=== PATIENT | female | born 1945 | race Two or more races ===

== ENCOUNTER 2018-08-11 00:42 | Emergency (ER) | payer OTHER ==
[~2018-08-11] VITALS: Ht 152.4 cm; Wt 76.0 kg
[~2018-08-11 00:42] MED LIST: BUPR1PAT TOP; CARV3.12 PO; DOCU100C41 PO; DULO60CA64 PO; HYDR-4353 PO; LIDO700A32 TOP; OXYC-134 PO; PRED50TA PO; TIZA4CAP PO
[2018-08-11 00:57] VITALS: BP 192/106
[2018-08-11] MEDS ORDERED: morphine 4 MG/ML inj SYRINge IM ONE (01:10)
[2018-08-11] MEDS ORDERED: morphine 4 MG/ML inj SYRINge IV ONE (02:05)
== END 2018-08-11 02:40 | disposition home or self-care (01) ==
LOC: ER 00:43
DX: M54.5 Low back pain (principal); I10 Essential (primary) hypertension; M19.90 Unspecified osteoarthritis, unspecified site; G89.29 Other chronic pain; M54.9 Dorsalgia, unspecified; Z90.49 Acquired absence of other specified parts of digestive tract; Z90.710 Acquired absence of both cervix and uterus; Z88.1 Allergy status to other antibiotic agents
CPT/HCPCS: 96372; 96374; 99283; J2270

== ENCOUNTER 2018-11-30 06:28 | Emergency (ER) | payer OTHER ==
[~2018-11-30] VITALS: Ht 152.4 cm; Wt 75.0 kg
[2018-11-30] MEDS ORDERED: VAL5T PO (07:00)
[2018-11-30] MEDS ORDERED: diazepam 5mg tablet PO ONE (07:00)
[2018-11-30 07:15] VITALS: BP 190/109
== END 2018-11-30 07:17 | disposition home or self-care (01) ==
LOC: ER 06:29
DX: R25.2 Cramp and spasm (principal); I10 Essential (primary) hypertension; M19.90 Unspecified osteoarthritis, unspecified site; G89.29 Other chronic pain; Z90.49 Acquired absence of other specified parts of digestive tract; Z90.710 Acquired absence of both cervix and uterus; Z98.890 Other specified postprocedural states; Z88.1 Allergy status to other antibiotic agents; Z79.899 Other long term (current) drug therapy
CPT/HCPCS: 99283

== ENCOUNTER 2019-01-24 00:40 | Emergency (ER) | payer OTHER ==
[~2019-01-24] VITALS: Ht 152.4 cm; Wt 74.2 kg
[~2019-01-24 00:40] MED LIST changes: -DULO60CA64 PO; +DULO60CA65 PO
[2019-01-24 00:44] VITALS: BP 147/95
[2019-01-24] MEDS ORDERED: triamcinolone acetonide 40mg/ml inj IM ONE (03:25)
[2019-01-24] MEDS ORDERED: LIDOcaine 5% patch TP SCH (03:25)
[2019-01-24] MEDS ORDERED: ketorolac trometh. 30mg/ml inj. IM ONE (03:25)
[2019-01-24] MEDS ORDERED: oxyCODONE/APAP 10/325mg tablet PO ONE (03:25)
[2019-01-24] MEDS ORDERED: MELO15TA13 PO (03:26)
== END 2019-01-24 03:44 | disposition home or self-care (01) ==
LOC: ER 00:41
DX: M54.5 Low back pain (principal); G89.29 Other chronic pain; I10 Essential (primary) hypertension; M19.90 Unspecified osteoarthritis, unspecified site; Z90.49 Acquired absence of other specified parts of digestive tract; Z90.710 Acquired absence of both cervix and uterus; Z98.890 Other specified postprocedural states; Z88.1 Allergy status to other antibiotic agents; Z79.899 Other long term (current) drug therapy
CPT/HCPCS: 96372; 99283; J1885; J3301

== ENCOUNTER 2019-02-26 02:39 | Emergency (ER) | payer SELFPAY ==
[~2019-02-26] VITALS: Ht 152.4 cm; Wt 77.8 kg
[~2019-02-26 02:39] MED LIST changes: +MELO15TA13 PO
[2019-02-26 02:57] VITALS: BP 165/89
[2019-02-26] MEDS ORDERED: acetaminophen 325mg tablet PO ONE (03:30)
[2019-02-26] MEDS ORDERED: morphine 4 MG/ML inj SYRINge IM ONE (03:30)
[2019-02-26] MEDS ORDERED: orphenadrine citrate 60mg/2ml inj. IM ONE (03:30)
[2019-02-26] MEDS ORDERED: ketorolac trometh. 30mg/ml inj. IM ONE (04:12)
[2019-02-26] MEDS ORDERED: ketorolac tromethamine 15mg/ml inj. IM ONE (08:00)
== END 2019-02-26 04:28 | disposition home or self-care (01) ==
LOC: ER 02:39
DX: G89.29 Other chronic pain (principal); M54.5 Low back pain; M79.605 Pain in left leg; M79.604 Pain in right leg; I10 Essential (primary) hypertension; M19.90 Unspecified osteoarthritis, unspecified site; Z90.49 Acquired absence of other specified parts of digestive tract; Z90.710 Acquired absence of both cervix and uterus; Z98.890 Other specified postprocedural states; Z88.8 Allergy status to other drugs, medicaments and biological substances; Z79.899 Other long term (current) drug therapy
CPT/HCPCS: 96372; 99283; J1885; J2270; J2360

== ENCOUNTER 2019-03-19 18:31 | Emergency (ER) | payer SELFPAY ==
[~2019-03-19] VITALS: Ht 152.4 cm; Wt 77.0 kg
[2019-03-19 18:59] LABS: BASOPHILS # (AUTO) 0.1 X10'3 (0-0.2); BASOPHILS % (AUTO) 0.7 % (0-1); EOSINOPHILS % (AUTO) 0.5 % (0-6); HEMATOCRIT 41.6 % (35.0-45.0); HEMOGLOBIN 14.3 g/dl (12.0-16.0); LYMPHOCYTES # (AUTO) 1.1 X10'3 (1.1-4.8); LYMPHOCYTES % (AUTO) 16.6 % (21-51); MEAN CORPUSCULAR HEMOGLOBIN 30.6 PG (27.0-31.0); MEAN CORPUSCULAR HGB CONC 34.2 g/dL (33.0-36.5); MEAN CORPUSCULAR VOLUME 89.3 FL (78-98); MONOCYTES # (AUTO) 0.3 X10'3 (0-0.9); MONOCYTES % (AUTO) 4.3 % (2-12); NEUTROPHILS # (AUTO) 5.4 X10'3 (1.8-7.7); NEUTROPHILS % (AUTO) 77.9 % (42-75); PLATELET COUNT 463 X10'3 (140-440); RED BLOOD COUNT 4.66 X10'6 (4.20-5.60); RED CELL DISTRIBUTION WIDTH 13.9 % (11.5-14.5); WHITE BLOOD COUNT 6.9 X10'3 (4.5-11.0)
[2019-03-19] MEDS ORDERED: GABA-532 PO (18:59)
[2019-03-19] MEDS ORDERED: DICL100G15 TOP (18:59)
[2019-03-19] MEDS ORDERED: QUET50TA22 PO (18:59)
[2019-03-19] MEDS ORDERED: HYDR-3927 PO (18:59)
[2019-03-19] MEDS ORDERED: CARV3.123 PO (18:59)
[2019-03-19 19:08] LABS: CLARITY,URINE CLEAR (Clear); COLOR,URINE YELLOW (Yellow); GLUCOSE, URINE NEGATIVE (Neg); KETONES,URINE TRACE mg/dl (Neg); LEUKOCYTE ESTERASE ,URINE NEGATIVE (Neg); NITRITES, URINE NEGATIVE (Neg); OCCULT BLOOD,URINE NEGATIVE (Neg); PH,URINE >=9.0 (4.8-8.0); PROTEIN,URINE 100 mg/dl (Neg); UROBILINOGEN,URINE 0.2 E.U/dL (0.2-1.0)
[2019-03-19 19:09] LABS: UA COLLECTION TYPE STRAIGHT CATH
[2019-03-19 19:10] LABS: ALANINE AMINOTRANSFERASE 20 U/L (12-78); ALBUMIN 3.4 G/DL (3.4-5.0); ALBUMIN/GLOBULIN RATIO 0.7 (1.1-1.5); ALKALINE PHOSPHATASE 137 IU/L (46-116); ANION GAP 10 (8-16); ASPARTATE AMINO TRANSFERASE 17 U/L (10-37); BILIRUBIN,TOTAL 0.4 MG/DL (0.1-1.0); BLOOD UREA NITROGEN 12 MG/DL (7-18); BUN/CREATININE RATIO 11.5 (6.6-38.0); CALCIUM 9.3 MG/DL (8.5-10.1); CHLORIDE 104 MMOL/L (99-107); CREATININE 1.04 MG/DL (0.40-0.90); GLUCOSE 136 MG/DL (70-104); SODIUM 138 MMOL/L (135-145); TOTAL CARBON DIOXIDE 23.8 MMOL/L (24-32); TOTAL PROTEIN 8.2 G/DL (6.4-8.2); eGFR 52 ML/MIN
[2019-03-19 19:22] LABS: BACTERIA,URINE NONE SEEN /HPF (Neg); MUCUS STRANDS NONE SEEN /LPF (Neg); RBC,URINE NONE SEEN /HPF (0-2); RENAL CELLS, URINE FEW /HPF; SQUAMOUS EPITHELIAL CELL,UR NONE SEEN /LPF (FEW); TRANSITIONAL EPI CELLS,URINE FEW /HPF; WBC,URINE NONE SEEN /HPF (0-4)
[2019-03-19] MEDS ORDERED: ondansetron/PF 4mg/2ml inj IV ONE (20:10)
[2019-03-19] MEDS: morphine 4 MG/ML inj SYRINge IV PRN ×2 (20:24→20:58)
--- NOTE | 2019-03-19 20:30 | NUR ---
MD AWARE OF BP PRESSURE. WILL TREAT PAIN AND REASSESS ,
[2019-03-19] MEDS ORDERED: ketorolac tromethamine 15mg/ml inj. IV ONE (20:35)
[2019-03-19] MEDS ORDERED: labetalol 20mg/4ml (5mg/ml) syringe IV ONE (21:05)
--- NOTE | 2019-03-19 21:15 | NUR ---
PT FAMILY CALLED CALL TRANSFERED TO PT ROOM
[2019-03-19 22:09] VITALS: BP 191/93
== END 2019-03-19 22:00 | disposition home or self-care (01) ==
LOC: ER 18:31
DX: R10.31 Right lower quadrant pain (principal); I10 Essential (primary) hypertension; M19.90 Unspecified osteoarthritis, unspecified site; G89.29 Other chronic pain; Z90.49 Acquired absence of other specified parts of digestive tract; Z90.710 Acquired absence of both cervix and uterus; Z98.890 Other specified postprocedural states; Z88.1 Allergy status to other antibiotic agents; Z79.899 Other long term (current) drug therapy
CPT/HCPCS: 36415; 74176; 80053; 81001; 85025; 85610; 93005; 96374; 96375; 96376; 99284; J1885; J2270; J2405; P9612; J3490

== ENCOUNTER 2019-04-09 20:09 | Emergency (ER) | payer OTHER ==
[~2019-04-09] VITALS: Ht 152.4 cm; Wt 75.0 kg
[~2019-04-09 20:09] MED LIST changes: -CARV3.12 PO; +CARV3.123 PO; +DICL100G15 TOP; -DOCU100C41 PO; +GABA-532 PO; +HYDR-3927 PO; -LIDO700A32 TOP; -MELO15TA13 PO; -OXYC-134 PO; -PRED50TA PO; +QUET50TA22 PO
[2019-04-09 20:36] VITALS: BP 159/67
== END 2019-04-09 22:14 | disposition home or self-care (01) ==
LOC: ER 20:10
DX: S92.351A Displaced fracture of fifth metatarsal bone, right foot, initial encounter for closed fracture (principal); I10 Essential (primary) hypertension; M19.90 Unspecified osteoarthritis, unspecified site; G89.29 Other chronic pain; Z90.49 Acquired absence of other specified parts of digestive tract; Z88.1 Allergy status to other antibiotic agents; Z79.899 Other long term (current) drug therapy; Z90.710 Acquired absence of both cervix and uterus; Z98.890 Other specified postprocedural states; W18.39XA Other fall on same level, initial encounter; Y93.89 Activity, other specified; Y92.090 Kitchen in other non-institutional residence as the place of occurrence of the external cause; Y99.8 Other external cause status
CPT/HCPCS: 29515; 73630; 99284

== ENCOUNTER 2019-08-12 23:31 | Emergency (ER) | payer MEDICARE, OTHER ==
[~2019-08-12] VITALS: Ht 152.4 cm; Wt 71.4 kg
[~2019-08-12 23:31] MED LIST changes: -BUPR1PAT TOP
--- NOTE | 2019-08-13 00:50 | NUR ---
NOTIFIED MD PT HAS NOT BEEN PICKED UP AND IS UNCOMFORTABLE.
--- NOTE | 2019-08-13 01:10 | NUR ---
PT PACEING FLOOR STATING SHE IS HAVING BACK PAIN , THAT IT IS VERY UNCOMFORTABLE, NOTIFIED MD THAT PATIENT HAS NOT BEEN PICKED UP AND IS UNCOMFORTABLE
--- NOTE | 2019-08-13 01:22 | NUR ---
PT PACING HALLWAY TO HELP ELEVATE HER DISCOMFORT
--- NOTE | 2019-08-13 02:00 | NUR ---
pt moved from [facility] bed c to counts include 234 beds at the [facility] 13
--- NOTE | 2019-08-13 02:37 | NUR ---
pt moved from [facility] bed 13 to room 9
[2019-08-13] MEDS ORDERED: METH-360 PO (03:00)
[2019-08-13] MEDS ORDERED: PRED20TA PO (03:00)
[2019-08-13] MEDS ORDERED: dexamethasone 4mg tablet PO ONE (03:00)
[2019-08-13] MEDS ORDERED: ketorolac tromethamine 15mg/ml inj. IM ONE (03:00)
--- NOTE | 2019-08-13 03:25 | NUR ---
[facility] CALLED TO TAKE PT HOME
--- NOTE | 2019-08-13 03:36 | NUR ---
PT AWAITING [facility] IN ER LOBBY
[2019-08-13 03:37] VITALS: BP 126/79
== END 2019-08-13 03:30 | disposition home or self-care (01) ==
LOC: ER 23:32
DX: M54.42 Lumbago with sciatica, left side (principal); M54.41 Lumbago with sciatica, right side; I10 Essential (primary) hypertension; M19.90 Unspecified osteoarthritis, unspecified site; G89.29 Other chronic pain; Z90.49 Acquired absence of other specified parts of digestive tract; Z90.710 Acquired absence of both cervix and uterus; Z98.890 Other specified postprocedural states; Z88.1 Allergy status to other antibiotic agents; Z79.899 Other long term (current) drug therapy
CPT/HCPCS: 96372; 99283; J1885

== ENCOUNTER 2019-09-04 19:25 | Emergency (ER) | payer SELFPAY ==
[~2019-09-04] VITALS: Ht 152.4 cm; Wt 71.4 kg
[~2019-09-04 19:25] MED LIST changes: +METH-360 PO; +PRED20TA PO
[2019-09-04 19:33] VITALS: BP 110/86
[2019-09-04] MEDS ORDERED: orphenadrine citrate 60mg/2ml inj. IM ONE (21:20)
[2019-09-04] MEDS ORDERED: ketorolac tromethamine 15mg/ml inj. IM ONE (21:20)
== END 2019-09-04 21:40 | disposition home or self-care (01) ==
LOC: ER 19:26
DX: M54.42 Lumbago with sciatica, left side (principal); G89.29 Other chronic pain; I10 Essential (primary) hypertension; M19.90 Unspecified osteoarthritis, unspecified site; Z90.49 Acquired absence of other specified parts of digestive tract; Z90.710 Acquired absence of both cervix and uterus; Z98.890 Other specified postprocedural states; Z88.1 Allergy status to other antibiotic agents; Z79.899 Other long term (current) drug therapy
CPT/HCPCS: 96372; 99284; J1885; J2360

== ENCOUNTER 2019-10-03 16:28 | Emergency (ER) | payer MEDICARE ==
[~2019-10-03] VITALS: Ht 152.4 cm; Wt 75.0 kg
[~2019-10-03 16:28] MED LIST changes: -PRED20TA PO
--- NOTE | 2019-10-03 16:49 | NUR ---
brought in by ems r/t abd pain with n/v x 4 days also states she is having diarreas says there is mucis in her stool abd is tender to palation on R side both upper and lower quad more tender on the lower quad
[2019-10-03] MEDS ORDERED: sucralfate 1gm/10ml UD suspension PO STA (17:06)
[2019-10-03 17:08] LABS: CLARITY,URINE CLEAR (Clear); COLOR,URINE YELLOW (Yellow); GLUCOSE, URINE NEGATIVE (Neg); KETONES,URINE 40 mg/dl (Neg); LEUKOCYTE ESTERASE ,URINE NEGATIVE (Neg); NITRITES, URINE NEGATIVE (Neg); OCCULT BLOOD,URINE NEGATIVE (Neg); PROTEIN,URINE 100 mg/dl (Neg)
[2019-10-03 17:08] LABS: BASOPHILS # (AUTO) 0.1 X10'3 (0-0.2); BASOPHILS % (AUTO) 0.5 % (0-1); EOSINOPHILS % (AUTO) 0.2 % (0-6); HEMATOCRIT 41.3 % (35.0-45.0); HEMOGLOBIN 14.5 g/dl (12.0-16.0); LYMPHOCYTES # (AUTO) 1.8 X10'3 (1.1-4.8); LYMPHOCYTES % (AUTO) 18.3 % (21-51); MEAN CORPUSCULAR VOLUME 88.6 FL (78-98); MEAN PLATELET VOLUME 7.2 FL (7.4-10.4); MONOCYTES # (AUTO) 0.7 X10'3 (0-0.9); MONOCYTES % (AUTO) 6.7 % (2-12); NEUTROPHILS # (AUTO) 7.4 X10'3 (1.8-7.7); NEUTROPHILS % (AUTO) 74.3 % (42-75); PLATELET COUNT 478 X10'3 (140-440); RED BLOOD COUNT 4.67 X10'6 (4.20-5.60); RED CELL DISTRIBUTION WIDTH 14.9 % (11.5-14.5); WHITE BLOOD COUNT 9.9 X10'3 (4.5-11.0)
[2019-10-03] MEDS ORDERED: ondansetron/PF 4mg/2ml inj IV ONE (17:10)
[2019-10-03] MEDS ORDERED: LIDOcaine Viscous 15ml cup MM ONE (17:10)
[2019-10-03] MEDS ORDERED: normal saline 1000ML IV soln IVB ONE (17:10)
[2019-10-03] MEDS ORDERED: mag hydrox/Alum hydrox/simeth 30ml oral suspension PO ONE (17:10)
[2019-10-03 17:18] LABS: UA COLLECTION TYPE CLN CATCH MIDSTREAM
[2019-10-03 17:19] LABS: ALANINE AMINOTRANSFERASE 17 U/L (12-78); ALBUMIN 3.4 G/DL (3.4-5.0); ALBUMIN/GLOBULIN RATIO 0.7 (1.1-1.5); ALKALINE PHOSPHATASE 149 IU/L (46-116); ANION GAP 12 (8-16); ASPARTATE AMINO TRANSFERASE 24 U/L (10-37); BILIRUBIN,TOTAL 0.5 MG/DL (0.1-1.0); BLOOD UREA NITROGEN 10 MG/DL (7-18); CALCIUM 8.7 MG/DL (8.5-10.1); CHLORIDE 104 MMOL/L (99-107); CREATININE 0.91 MG/DL (0.40-0.90); GLUCOSE 122 MG/DL (70-104); LIPASE 119 U/L (73-393); POTASSIUM 3.2 MMOL/L (3.5-5.1); SODIUM 138 MMOL/L (135-145); TOTAL CARBON DIOXIDE 22.4 MMOL/L (24-32); TOTAL PROTEIN 8.1 G/DL (6.4-8.2); eGFR 60 ML/MIN
[2019-10-03 17:20] LABS: MUCUS STRANDS FEW /LPF (Neg); SQUAMOUS EPITHELIAL CELL,UR MODERATE /LPF (FEW)
[2019-10-03 17:22] LABS: BACTERIA,URINE FEW /HPF (Neg); RBC,URINE 0-2 /HPF (0-2); WBC,URINE 0-4 /HPF (0-4)
[2019-10-03] MEDS ORDERED: hydrALAZINE 20mg/ml inj. IV ONE (17:40)
[2019-10-03] MEDS: morphine 4 MG/ML inj SYRINge IV PRN ×2 (17:44→18:26)
[2019-10-03] MEDS ORDERED: carVEDilol 3.125mg tablet PO ONE (18:15)
[2019-10-03] MEDS ORDERED: carVEDilol 3.125mg tablet PO SCH (18:15)
[2019-10-03] MEDS ORDERED: potassium chloride 10mEq ER tablet PO SCH (18:30)
[2019-10-03] MEDS ORDERED: potassium chloride 10mEq ER tablet PO ONE (18:30)
[2019-10-03] MEDS ORDERED: HYDR-3965 PO (18:47)
[2019-10-03] MEDS ORDERED: ONDA4TAB6 PO (18:47)
--- NOTE | 2019-10-03 18:58 | NUR ---
Pt. given yogurt with KCL. Tolerated well. aware.
[2019-10-03 19:06] VITALS: BP 166/73
[2019-10-04] MEDS ORDERED: HYDR-3972 PO (19:15)
[2019-10-04] MEDS ORDERED: HYDR-4353 PO (20:32)
== END 2019-10-03 19:08 | disposition home or self-care (01) ==
LOC: ER 16:29
DX: R11.2 Nausea with vomiting, unspecified (principal); R19.7 Diarrhea, unspecified; R10.13 Epigastric pain; I10 Essential (primary) hypertension; I25.10 Atherosclerotic heart disease of native coronary artery without angina pectoris; G89.29 Other chronic pain; M19.90 Unspecified osteoarthritis, unspecified site; Z90.710 Acquired absence of both cervix and uterus; Z90.49 Acquired absence of other specified parts of digestive tract; Z88.1 Allergy status to other antibiotic agents; Z79.899 Other long term (current) drug therapy
CPT/HCPCS: 36415; 80053; 81001; 83690; 85025; 96361; 96374; 96375; 96376; 99284; J0360; J2270; J2405; J7030

== ENCOUNTER 2019-10-04 17:01 | Emergency (ER) | payer MEDICARE ==
[~2019-10-04] VITALS: Ht 162.6 cm; Wt 105.0 kg
[~2019-10-04 17:01] MED LIST changes: +HYDR-3965 PO; +ONDA4TAB6 PO
[2019-10-04] MEDS ORDERED: normal saline 1000ML IV soln IV ONE (17:15)
[2019-10-04 17:25] LABS: BASOPHILS # (AUTO) 0.1 X10'3 (0-0.2); BASOPHILS % (AUTO) 0.9 % (0-1); EOSINOPHILS # (AUTO) 0.1 X10'3 (0-0.9); EOSINOPHILS % (AUTO) 0.6 % (0-6); HEMATOCRIT 38.4 % (35.0-45.0); HEMOGLOBIN 13.1 g/dl (12.0-16.0); LYMPHOCYTES # (AUTO) 1.9 X10'3 (1.1-4.8); LYMPHOCYTES % (AUTO) 23.5 % (21-51); MEAN CORPUSCULAR HEMOGLOBIN 30.6 PG (27.0-31.0); MEAN CORPUSCULAR HGB CONC 34.2 g/dL (33.0-36.5); MEAN CORPUSCULAR VOLUME 89.6 FL (78-98); MEAN PLATELET VOLUME 7.2 FL (7.4-10.4); MONOCYTES # (AUTO) 0.6 X10'3 (0-0.9); MONOCYTES % (AUTO) 7.1 % (2-12); NEUTROPHILS # (AUTO) 5.5 X10'3 (1.8-7.7); NEUTROPHILS % (AUTO) 67.9 % (42-75); PLATELET COUNT 408 X10'3 (140-440); RED BLOOD COUNT 4.28 X10'6 (4.20-5.60); RED CELL DISTRIBUTION WIDTH 15.2 % (11.5-14.5)
[2019-10-04 17:38] LABS: ALANINE AMINOTRANSFERASE 14 U/L (12-78); ALBUMIN 3.2 G/DL (3.4-5.0); ALBUMIN/GLOBULIN RATIO 0.7 (1.1-1.5); ALKALINE PHOSPHATASE 133 IU/L (46-116); ANION GAP 9 (8-16); ASPARTATE AMINO TRANSFERASE 21 U/L (10-37); BILIRUBIN,TOTAL 0.4 MG/DL (0.1-1.0); BLOOD UREA NITROGEN 17 MG/DL (7-18); BUN/CREATININE RATIO 15.3 (6.6-38.0); CALCIUM 9.1 MG/DL (8.5-10.1); CHLORIDE 107 MMOL/L (99-107); CREATININE 1.11 MG/DL (0.40-0.90); GLUCOSE 113 MG/DL (70-104); MAGNESIUM 1.9 MG/DL (1.5-2.4); POTASSIUM 3.6 MMOL/L (3.5-5.1); SODIUM 140 MMOL/L (135-145); TOTAL PROTEIN 7.9 G/DL (6.4-8.2); eGFR 48 ML/MIN
[2019-10-04 18:28] LABS: CLARITY,URINE CLEAR (Clear); COLOR,URINE YELLOW (Yellow); GLUCOSE, URINE NEGATIVE (Neg); KETONES,URINE 15 mg/dl (Neg); LEUKOCYTE ESTERASE ,URINE NEGATIVE (Neg); NITRITES, URINE NEGATIVE (Neg); OCCULT BLOOD,URINE NEGATIVE (Neg); PROTEIN,URINE TRACE mg/dl (Neg); UA COLLECTION TYPE CLN CATCH MIDSTREAM
[2019-10-04 18:35] LABS: BACTERIA,URINE NONE SEEN /HPF (Neg); MUCUS STRANDS FEW /LPF (Neg); RBC,URINE 0-2 /HPF (0-2); SQUAMOUS EPITHELIAL CELL,UR FEW /LPF (FEW); WBC,URINE 0-4 /HPF (0-4)
[2019-10-04] MEDS ORDERED: HYDR-3972 PO (19:15)
[2019-10-04] MEDS ORDERED: HYDROcodone/acetaminophen 10/325mg tab PO ONE (19:55)
[2019-10-04] MEDS ORDERED: morphine 4 MG/ML inj SYRINge IV ONE (19:55)
[2019-10-04] MEDS ORDERED: ondansetron/PF 4mg/2ml inj IV ONE (19:55)
[2019-10-04] MEDS ORDERED: HYDR-4353 PO (20:32)
[2019-10-04 21:35] VITALS: BP 160/90
== END 2019-10-04 21:36 | disposition home or self-care (01) ==
LOC: ER 17:01
DX: R10.13 Epigastric pain (principal); R11.2 Nausea with vomiting, unspecified; R19.7 Diarrhea, unspecified; I25.10 Atherosclerotic heart disease of native coronary artery without angina pectoris; I10 Essential (primary) hypertension; M19.90 Unspecified osteoarthritis, unspecified site; G89.29 Other chronic pain; Z90.49 Acquired absence of other specified parts of digestive tract; Z98.890 Other specified postprocedural states; Z88.8 Allergy status to other drugs, medicaments and biological substances; Z79.899 Other long term (current) drug therapy
CPT/HCPCS: 36415; 71045; 74176; 80053; 81001; 83605; 83735; 84145; 85025; 87040; 93005; J2270; J2405; J7030; 96361; 96374; 96375; 99285

== ENCOUNTER 2019-11-28 22:46 | Emergency (ER) | payer MEDICARE ==
[~2019-11-28] VITALS: Ht 152.4 cm; Wt 72.0 kg
[~2019-11-28 22:46] MED LIST changes: -HYDR-3965 PO; +HYDR-3972 PO; -HYDR-4353 PO; -METH-360 PO; -ONDA4TAB6 PO
--- NOTE | 2019-11-28 23:21 | NUR ---
provider made aware of htn, will awaite med order
[2019-11-28 23:57] LABS: BASOPHILS # (AUTO) 0.1 X10'3 (0-0.2); BASOPHILS % (AUTO) 0.9 % (0-1); EOSINOPHILS # (AUTO) 0.1 X10'3 (0-0.9); EOSINOPHILS % (AUTO) 0.6 % (0-6); HEMATOCRIT 43.2 % (35.0-45.0); HEMOGLOBIN 14.4 g/dl (12.0-16.0); LYMPHOCYTES # (AUTO) 2.6 X10'3 (1.1-4.8); LYMPHOCYTES % (AUTO) 24.9 % (21-51); MEAN CORPUSCULAR HEMOGLOBIN 30.3 PG (27.0-31.0); MEAN CORPUSCULAR HGB CONC 33.4 g/dL (33.0-36.5); MEAN CORPUSCULAR VOLUME 90.6 FL (78-98); MEAN PLATELET VOLUME 7.3 FL (7.4-10.4); MONOCYTES # (AUTO) 0.6 X10'3 (0-0.9); MONOCYTES % (AUTO) 6.2 % (2-12); NEUTROPHILS # (AUTO) 6.9 X10'3 (1.8-7.7); NEUTROPHILS % (AUTO) 67.4 % (42-75); PLATELET COUNT 487 X10'3 (140-440); RED BLOOD COUNT 4.77 X10'6 (4.20-5.60); RED CELL DISTRIBUTION WIDTH 15.1 % (11.5-14.5); WHITE BLOOD COUNT 10.3 X10'3 (4.5-11.0)
[2019-11-28] MEDS ORDERED: carVEDilol 3.125mg tablet PO STA (23:58)
[2019-11-29] MEDS ORDERED: LIDO700A32 TOP (00:21)
[2019-11-29 00:28] LABS: ALBUMIN 3.7 G/DL (3.4-5.0); ANION GAP 10 (8-16); C-REACTIVE PROTEIN 0.06 MG/DL (0.0-0.5); CALCIUM 9.5 MG/DL (8.5-10.1); CHLORIDE 108 MMOL/L (99-107); CREATININE 1.25 MG/DL (0.40-0.90); GLUCOSE 101 MG/DL (70-104); SODIUM 141 MMOL/L (135-145); TOTAL CARBON DIOXIDE 22.6 MMOL/L (24-32); eGFR 42 ML/MIN
[2019-11-29] MEDS ORDERED: acetaminophen 325mg tablet PO ONE (00:30)
--- NOTE | 2019-11-29 00:35 | NUR ---
assisting with pt care, pt asking for pain stronger than tylenol, last had "2" tylenol at 2100, Glenny TOBIAS aware
[2019-11-29 00:49] LABS: BLOOD UREA NITROGEN 21 MG/DL (7-18); BUN/CREATININE RATIO 16.8 (6.6-38.0)
[2019-11-29] MEDS ORDERED: triamcinolone acetonide 40mg/ml inj IM ONE (01:00)
[2019-11-29 01:59] VITALS: BP 168/111
== END 2019-11-29 02:00 | disposition home or self-care (01) ==
LOC: ER 22:47
DX: M25.512 Pain in left shoulder (principal); I25.10 Atherosclerotic heart disease of native coronary artery without angina pectoris; I10 Essential (primary) hypertension; M19.90 Unspecified osteoarthritis, unspecified site; G89.29 Other chronic pain; Z90.49 Acquired absence of other specified parts of digestive tract; Z90.710 Acquired absence of both cervix and uterus; Z98.890 Other specified postprocedural states; Z88.8 Allergy status to other drugs, medicaments and biological substances; Z79.899 Other long term (current) drug therapy
CPT/HCPCS: 36415; 73030; 80048; 84145; 85025; 85651; 86140; 96372; 99284; J3301

== ENCOUNTER 2020-02-17 13:18 | Emergency (ER) | payer SELFPAY ==
[~2020-02-17] VITALS: Ht 152.4 cm; Wt 72.7 kg
[~2020-02-17 13:18] MED LIST changes: +LIDO700A32 TOP
[2020-02-17] MEDS ORDERED: orphenadrine citrate 60mg/2ml inj. IM ONE (13:50)
[2020-02-17] MEDS ORDERED: ketorolac tromethamine 15mg/ml inj. IM ONE (13:50)
[2020-02-17 14:00] LABS: CLARITY,URINE SLIGHTLY CLOUDY (Clear); COLOR,URINE YELLOW (Yellow); GLUCOSE, URINE NEGATIVE (Neg); KETONES,URINE NEGATIVE (Neg); LEUKOCYTE ESTERASE ,URINE NEGATIVE (Neg); NITRITES, URINE NEGATIVE (Neg); OCCULT BLOOD,URINE NEGATIVE (Neg); PH,URINE 5.5 (4.8-8.0); PROTEIN,URINE NEGATIVE (Neg); UROBILINOGEN,URINE 0.2 E.U/dL (0.2-1.0)
[2020-02-17 14:02] LABS: UA COLLECTION TYPE CLN CATCH MIDSTREAM
[2020-02-17 14:06] LABS: BACTERIA,URINE 1+ /HPF (Neg); HYALINE CASTS >30 /LPF (NEGATIVE); MUCUS STRANDS MODERATE /LPF (Neg); RBC,URINE 0-2 /HPF (0-2); SQUAMOUS EPITHELIAL CELL,UR MODERATE /LPF (FEW); WBC,URINE 0-4 /HPF (0-4)
[2020-02-17 15:05] VITALS: BP 109/62
== END 2020-02-17 15:06 | disposition home or self-care (01) ==
LOC: ER 13:19
DX: G89.29 Other chronic pain (principal); M54.5 Low back pain; M25.512 Pain in left shoulder; I25.10 Atherosclerotic heart disease of native coronary artery without angina pectoris; I10 Essential (primary) hypertension; M19.90 Unspecified osteoarthritis, unspecified site; Z90.49 Acquired absence of other specified parts of digestive tract; Z90.710 Acquired absence of both cervix and uterus; Z98.890 Other specified postprocedural states; Z88.1 Allergy status to other antibiotic agents; Z79.899 Other long term (current) drug therapy
CPT/HCPCS: 81001; 96372; 99284; J1885; J2360

== ENCOUNTER 2020-02-20 17:03 | Emergency (ER) | payer MEDICARE ==
[~2020-02-20] VITALS: Ht 157.5 cm; Wt 75.5 kg
[2020-02-20 17:39] LABS: BASOPHILS % (AUTO) 0.2 % (0-1); EOSINOPHILS # (AUTO) 0.3 X10'3 (0-0.9); EOSINOPHILS % (AUTO) 2.2 % (0-6); HEMATOCRIT 35.3 % (35.0-45.0); HEMOGLOBIN 11.7 g/dl (12.0-16.0); LYMPHOCYTES # (AUTO) 0.8 X10'3 (1.1-4.8); LYMPHOCYTES % (AUTO) 5.9 % (21-51); MEAN CORPUSCULAR HEMOGLOBIN 30.9 PG (27.0-31.0); MEAN CORPUSCULAR HGB CONC 33.1 g/dL (33.0-36.5); MEAN CORPUSCULAR VOLUME 93.4 FL (78-98); MEAN PLATELET VOLUME 7.9 FL (7.4-10.4); MONOCYTES # (AUTO) 0.5 X10'3 (0-0.9); MONOCYTES % (AUTO) 3.9 % (2-12); NEUTROPHILS # (AUTO) 11.9 X10'3 (1.8-7.7); NEUTROPHILS % (AUTO) 87.8 % (42-75); PLATELET COUNT 305 X10'3 (140-440); RED BLOOD COUNT 3.78 X10'6 (4.20-5.60); RED CELL DISTRIBUTION WIDTH 14.6 % (11.5-14.5); WHITE BLOOD COUNT 13.6 X10'3 (4.5-11.0)
[2020-02-20 17:50] LABS: CLARITY,URINE CLEAR (Clear); COLOR,URINE YELLOW (Yellow); GLUCOSE, URINE NEGATIVE (Neg); KETONES,URINE NEGATIVE (Neg); LEUKOCYTE ESTERASE ,URINE NEGATIVE (Neg); NITRITES, URINE NEGATIVE (Neg); OCCULT BLOOD,URINE NEGATIVE (Neg); PROTEIN,URINE NEGATIVE (Neg); UROBILINOGEN,URINE 0.2 E.U/dL (0.2-1.0)
[2020-02-20 17:54] LABS: UA COLLECTION TYPE STRAIGHT CATH
[2020-02-20 18:00] LABS: ALANINE AMINOTRANSFERASE 20 U/L (12-78); ALBUMIN 3.3 G/DL (3.4-5.0); ALBUMIN/GLOBULIN RATIO 0.7 (1.1-1.5); ALKALINE PHOSPHATASE 128 IU/L (46-116); ANION GAP 9 (8-16); ASPARTATE AMINO TRANSFERASE 19 U/L (10-37); BILIRUBIN,TOTAL 0.4 MG/DL (0.1-1.0); BLOOD UREA NITROGEN 36 MG/DL (7-18); BUN/CREATININE RATIO 26.9 (6.6-38.0); CALCIUM 8.7 MG/DL (8.5-10.1); CHLORIDE 105 MMOL/L (99-107); CREATININE 1.34 MG/DL (0.40-0.90); GLUCOSE 137 MG/DL (70-104); POTASSIUM 4.3 MMOL/L (3.5-5.1); SODIUM 138 MMOL/L (135-145); TOTAL CARBON DIOXIDE 24.1 MMOL/L (24-32); eGFR 39 ML/MIN
[2020-02-20 18:03] LABS: LACTIC SEPSIS 1.1 MMOL/L (0.4-2.0)
[2020-02-20 18:04] LABS: TROPONIN I < 0.04 NG/ML (0.0-0.05)
[2020-02-20 18:07] LABS: ETHANOL < 0.010 GM/DL (0.0-0.010)
[2020-02-20 18:10] LABS: URINE AMPHETAMINE SCREEN NEGATIVE (Neg); URINE BARBITUATE SCREEN NEGATIVE (Neg); URINE BENZODIAZEPINES SCREEN NEGATIVE (Neg); URINE CANNABINOID SCREEN POSITIVE (Neg); URINE COCAINE SCREEN NEGATIVE (Neg); URINE METHADONE SCREEN NEGATIVE (Neg); URINE OPIATE SCREEN POSITIVE (Neg); URINE PHENCYCLIDINE SCREEN NEGATIVE (Neg)
[2020-02-20] MEDS ORDERED: naloxone 0.4 mg/ml inj IV ONE (18:25)
[2020-02-20] MEDS ORDERED: LIDO700A47 TOP (18:40)
[2020-02-20] MEDS ORDERED: BUPR1PAT2 TOP (18:40)
[2020-02-20] MEDS ORDERED: MELA5TAB14 PO (18:40)
[2020-02-20] MEDS ORDERED: normal saline 1000ML IV soln IVB ONE (19:05)
--- NOTE | 2020-02-20 20:56 | NUR ---
PACKED FAXED TO [facility]
--- NOTE | 2020-02-20 21:05 | NUR ---
Patient was brought over to Overflow Bed 26 from ER. Patient is awake and alert responding appropriately. Belongings placed in locker and patient in green scrubs
--- NOTE | 2020-02-20 22:00 | NUR ---
Patient lying in bed on her back. Appears to be resting comfortably. No apparent s/s of distress noted
--- NOTE | 2020-02-20 23:15 | NUR ---
Patient appears to be resting comfortably in bed. No apparent s/s of distress noted
--- NOTE | 2020-02-21 00:38 | NUR ---
Pt appears to be resting comfortably in bed. No apparent s/s of distress noted
--- NOTE | 2020-02-21 01:06 | NUR ---
Pt appears to be resting comfortably in bed. No apparent s/s of distress noted
--- NOTE | 2020-02-21 02:30 | NUR ---
Pt appears to be resting comfortably in bed. No apparent s/s of distress noted
--- NOTE | 2020-02-21 03:01 | NUR ---
Pt appears to be resting comfortably in bed. No apparent s/s of distress noted
--- NOTE | 2020-02-21 04:05 | NUR ---
Pt appears to be resting comfortably in bed. No apparent s/s of distress noted
--- NOTE | 2020-02-21 04:59 | NUR ---
Pt appears to be resting comfortably in bed. No apparent s/s of distress noted
[2020-02-21 05:41] VITALS: BP 133/74
--- NOTE | 2020-02-21 06:16 | NUR ---
Received report from Olivia GARRETT, assumed care.
--- NOTE | 2020-02-21 07:30 | NUR ---
Patient resting in bed, no complaints. Will cont. to monitor.
--- NOTE | 2020-02-21 08:30 | NUR ---
Patient resting in bed, no complaints. Will cont. to monitor.
--- NOTE | 2020-02-21 09:20 | NUR ---
Patient resting in bed with eyes closed, no s/sx of distress. Will cont. to monitor.
--- NOTE | 2020-02-21 10:27 | NUR ---
Patient resting with eyes closed, no s/sx of distress noted. Will cont. to monitor.
--- NOTE | 2020-02-21 11:30 | NUR ---
Patient sleeping, no s/sx of distress noted. Will cont. to monitor.
--- NOTE | 2020-02-21 12:15 | NUR ---
Patient sleeping, no s/sx of distress noted. Will cont. to monitor.
[2020-02-21 12:30] LABS: ALANINE AMINOTRANSFERASE 18 U/L (12-78); ALBUMIN 2.8 G/DL (3.4-5.0); ALBUMIN/GLOBULIN RATIO 0.7 (1.1-1.5); ALKALINE PHOSPHATASE 119 IU/L (46-116); ANION GAP 9 (8-16); ASPARTATE AMINO TRANSFERASE 15 U/L (10-37); BILIRUBIN,TOTAL 0.3 MG/DL (0.1-1.0); BLOOD UREA NITROGEN 20 MG/DL (7-18); BUN/CREATININE RATIO 20.2 (6.6-38.0); CALCIUM 8.8 MG/DL (8.5-10.1); CHLORIDE 108 MMOL/L (99-107); CREATININE 0.99 MG/DL (0.40-0.90); GLUCOSE 152 MG/DL (70-104); POTASSIUM 3.8 MMOL/L (3.5-5.1); SODIUM 140 MMOL/L (135-145); TOTAL CARBON DIOXIDE 23.3 MMOL/L (24-32); TOTAL PROTEIN 7.1 G/DL (6.4-8.2); eGFR 55 ML/MIN
[2020-02-21 12:31] LABS: ACETAMINOPHEN < 2.0 UG/ML (10-30)
--- NOTE | 2020-02-21 13:19 | NUR ---
Patient sitting up in bed, eating lunch.
--- NOTE | 2020-02-21 15:23 | NUR ---
Spoke to patient's daughter Lisa, states she is sending a uber ride to come get patient. Patient was very happy to hear she was going home. Discussed discharge instructions and education with patient, agreed for follow-up and verbalized understanding and signed d/c paperwork. Eager to go home. Belongings returned to her and got her dressed. Grandson will be waiting for patient for assistance inside the house. Escorted out via W/C to [employer] car.
== END 2020-02-21 15:25 | disposition home or self-care (01) ==
LOC: ER 17:03
DX: T40.2X1A Poisoning by other opioids, accidental (unintentional), initial encounter (principal); R41.82 Altered mental status, unspecified; I25.10 Atherosclerotic heart disease of native coronary artery without angina pectoris; I10 Essential (primary) hypertension; M19.90 Unspecified osteoarthritis, unspecified site; G89.29 Other chronic pain; Z90.49 Acquired absence of other specified parts of digestive tract; Z90.710 Acquired absence of both cervix and uterus; Z98.890 Other specified postprocedural states; Z88.8 Allergy status to other drugs, medicaments and biological substances; Z79.899 Other long term (current) drug therapy; Y92.89 Other specified places as the place of occurrence of the external cause
CPT/HCPCS: 36415; 70450; 71045; 80053; 80305; 80320; 80329; 81003; 82140; 83605; 84484; 85025; 85610; 87040; 93005; 96361; 96374; 99285; J2310; J7030

== ENCOUNTER 2020-02-25 22:52 | Emergency (ER) | payer OTHER ==
[~2020-02-25] VITALS: Ht 152.4 cm; Wt 72.7 kg
[~2020-02-25 22:52] MED LIST changes: +BUPR1PAT2 TOP; -LIDO700A32 TOP; +LIDO700A47 TOP; +MELA5TAB14 PO
[2020-02-25] MEDS ORDERED: normal saline 1000ML IV soln IVB ONE (23:05)
[2020-02-25 23:26] LABS: HEMOGLOBIN 14.1 g/dl (12.0-16.0); MEAN PLATELET VOLUME 6.8 FL (7.4-10.4)
[2020-02-25 23:28] LABS: HEMATOCRIT 40.8 % (35.0-45.0); MEAN CORPUSCULAR HEMOGLOBIN 31.3 PG (27.0-31.0); MEAN CORPUSCULAR HGB CONC 34.7 g/dL (33.0-36.5); MEAN CORPUSCULAR VOLUME 90.1 FL (78-98); PLATELET COUNT 448 X10'3 (140-440); RED BLOOD COUNT 4.52 X10'6 (4.20-5.60); WHITE BLOOD COUNT 9.8 X10'3 (4.5-11.0)
[2020-02-25 23:43] LABS: ALANINE AMINOTRANSFERASE 11 U/L (12-78); ALBUMIN 3.2 G/DL (3.4-5.0); ALBUMIN/GLOBULIN RATIO 0.6 (1.1-1.5); ALKALINE PHOSPHATASE 121 IU/L (46-116); ANION GAP 16 (8-16); ASPARTATE AMINO TRANSFERASE 13 U/L (10-37); BILIRUBIN,TOTAL 0.4 MG/DL (0.1-1.0); BLOOD UREA NITROGEN 15 MG/DL (7-18); BUN/CREATININE RATIO 15.5 (6.6-38.0); CALCIUM 9.2 MG/DL (8.5-10.1); CHLORIDE 103 MMOL/L (99-107); CREATININE 0.97 MG/DL (0.40-0.90); GLUCOSE 73 MG/DL (70-104); SODIUM 137 MMOL/L (135-145); TOTAL CARBON DIOXIDE 17.8 MMOL/L (24-32); TOTAL PROTEIN 8.3 G/DL (6.4-8.2); eGFR 56 ML/MIN
[2020-02-25 23:45] LABS: PLATELET ESTIMATE INCREASED; TOTAL CELLS COUNTED 100
[2020-02-25 23:52] LABS: MAGNESIUM 1.7 MG/DL (1.5-2.4); TROPONIN I < 0.04 NG/ML (0.0-0.05)
[2020-02-26] MEDS ORDERED: hydrALAZINE 20mg/ml inj. IV ONE (00:10)
[2020-02-26] MEDS ORDERED: ondansetron/PF 4mg/2ml inj IV ONE (00:10)
[2020-02-26] MEDS ORDERED: morphine 4 MG/ML inj SYRINge IV ONE (00:10)
[2020-02-26] MEDS ORDERED: acetaminophen 325mg tablet PO ONE (00:45)
[2020-02-26 01:03] LABS: CLARITY,URINE CLEAR (Clear); COLOR,URINE YELLOW (Yellow); GLUCOSE, URINE NEGATIVE (Neg); KETONES,URINE >=80 mg/dl (Neg); LEUKOCYTE ESTERASE ,URINE NEGATIVE (Neg); NITRITES, URINE NEGATIVE (Neg); OCCULT BLOOD,URINE NEGATIVE (Neg); PROTEIN,URINE 30 mg/dl (Neg)
[2020-02-26 01:08] LABS: UA COLLECTION TYPE NON-SPECIFIED
[2020-02-26 01:09] LABS: BACTERIA,URINE NONE SEEN /HPF (Neg); RBC,URINE 0-2 /HPF (0-2); SQUAMOUS EPITHELIAL CELL,UR FEW /LPF (FEW); WBC,URINE NONE SEEN /HPF (0-4)
[2020-02-26 02:19] VITALS: BP 161/86
== END 2020-02-26 02:21 | disposition home or self-care (01) ==
LOC: ER 22:52
DX: I10 Essential (primary) hypertension (principal); I25.10 Atherosclerotic heart disease of native coronary artery without angina pectoris; M19.90 Unspecified osteoarthritis, unspecified site; G89.29 Other chronic pain; R05 Cough; R51 Headache; R11.0 Nausea; Z98.890 Other specified postprocedural states; Z00.8 Encounter for other general examination; Z90.710 Acquired absence of both cervix and uterus; Z90.49 Acquired absence of other specified parts of digestive tract; Z88.8 Allergy status to other drugs, medicaments and biological substances; Z79.899 Other long term (current) drug therapy
CPT/HCPCS: 36415; 70450; 71045; 80053; 81001; 83735; 83880; 84484; 85007; 85025; 93005; 96361; 96374; 96375; 99285; J0360; J2405; J7030; J2270

== ENCOUNTER 2020-10-14 03:44 | Inpatient (IN) | payer MEDICARE, OTHER ==
[~2020-10-14] VITALS: Ht 152.4 cm; Wt 70.0 kg
[~2020-10-14 03:44] MED LIST changes: -BUPR1PAT2 TOP; +BUPR1PAT3; -CARV3.123 PO; -DICL100G15 TOP; +LIDO700A32 TOP; -LIDO700A47 TOP; +LISI20TA28 PO; -MELA5TAB14 PO; -TIZA4CAP PO; +TIZA4TAB5 PO
[2020-10-14] MEDS ORDERED: naloxone 2mg/2ml inj IV ONE (03:50)
[2020-10-14] MEDS ORDERED: normal saline 1000ML IV soln IVB ONE (04:10)
[2020-10-14 04:24] LABS: BASOPHILS % (AUTO) 0.9 % (0-1); EOSINOPHILS # (AUTO) 0.3 X10'3 (0-0.9); EOSINOPHILS % (AUTO) 5.5 % (0-6); HEMATOCRIT 23.4 % (35.0-45.0); HEMOGLOBIN 7.7 g/dl (12.0-16.0); LYMPHOCYTES # (AUTO) 1.7 X10'3 (1.1-4.8); LYMPHOCYTES % (AUTO) 34.6 % (21-51); MEAN CORPUSCULAR HEMOGLOBIN 30.8 PG (27.0-31.0); MEAN CORPUSCULAR HGB CONC 32.8 g/dL (33.0-36.5); MEAN CORPUSCULAR VOLUME 93.9 FL (78-98); MEAN PLATELET VOLUME 7.9 FL (7.4-10.4); MONOCYTES # (AUTO) 0.4 X10'3 (0-0.9); MONOCYTES % (AUTO) 8.1 % (2-12); NEUTROPHILS # (AUTO) 2.4 X10'3 (1.8-7.7); NEUTROPHILS % (AUTO) 50.9 % (42-75); PLATELET COUNT 236 X10'3 (140-440); RED BLOOD COUNT 2.49 X10'6 (4.20-5.60); RED CELL DISTRIBUTION WIDTH 13.7 % (11.5-14.5); WHITE BLOOD COUNT 4.8 X10'3 (4.5-11.0)
[2020-10-14 04:27] LABS: ALANINE AMINOTRANSFERASE 8 U/L (12-78); ALBUMIN 2.1 G/DL (3.4-5.0); ALBUMIN/GLOBULIN RATIO 0.7 (1.1-1.5); ALKALINE PHOSPHATASE 106 IU/L (46-116); ANION GAP 9 (8-16); ASPARTATE AMINO TRANSFERASE 10 U/L (10-37); BILIRUBIN,TOTAL 0.1 MG/DL (0.1-1.0); BLOOD UREA NITROGEN 26 MG/DL (7-18); BUN/CREATININE RATIO 24.8 (6.6-38.0); CALCIUM 7.3 MG/DL (8.5-10.1); CHLORIDE 116 MMOL/L (99-107); CREATININE 1.05 MG/DL (0.40-0.90); GLUCOSE 106 MG/DL (70-104); SODIUM 145 MMOL/L (135-145); TOTAL CARBON DIOXIDE 19.8 MMOL/L (24-32); TOTAL PROTEIN 5.2 G/DL (6.4-8.2); eGFR 51 ML/MIN
[2020-10-14 04:30] LABS: LACTIC SEPSIS 1.1 MMOL/L (0.4-2.0); TROPONIN I < 0.04 NG/ML (0.0-0.05)
[2020-10-14 04:37] LABS: ETHANOL < 0.010 GM/DL (0.0-0.010)
[2020-10-14 04:41] LABS: CLARITY,URINE CLEAR (Clear); COLOR,URINE YELLOW (Yellow); GLUCOSE, URINE NEGATIVE (Neg); KETONES,URINE NEGATIVE (Neg); LEUKOCYTE ESTERASE ,URINE NEGATIVE (Neg); NITRITES, URINE NEGATIVE (Neg); OCCULT BLOOD,URINE NEGATIVE (Neg); PH,URINE 5.5 (4.8-8.0); PROTEIN,URINE NEGATIVE (Neg); UROBILINOGEN,URINE 0.2 E.U/dL (0.2-1.0)
[2020-10-14 04:54] LABS: UA COLLECTION TYPE FOLEY CATH
[2020-10-14 04:55] LABS: URINE AMPHETAMINE SCREEN NEGATIVE (Neg); URINE BARBITUATE SCREEN NEGATIVE (Neg); URINE BENZODIAZEPINES SCREEN NEGATIVE (Neg); URINE CANNABINOID SCREEN NEGATIVE (Neg); URINE COCAINE SCREEN NEGATIVE (Neg); URINE METHADONE SCREEN NEGATIVE (Neg); URINE OPIATE SCREEN POSITIVE (Neg); URINE PHENCYCLIDINE SCREEN NEGATIVE (Neg)
[2020-10-14 05:18] LABS: HEMATOCRIT 23.8 % (35.0-45.0); HEMOGLOBIN 7.7 g/dl (12.0-16.0); MEAN CORPUSCULAR HEMOGLOBIN 30.5 PG (27.0-31.0); MEAN CORPUSCULAR HGB CONC 32.3 g/dL (33.0-36.5); MEAN CORPUSCULAR VOLUME 94.5 FL (78-98); MEAN PLATELET VOLUME 7.5 FL (7.4-10.4); PLATELET COUNT 207 X10'3 (140-440); RED BLOOD COUNT 2.52 X10'6 (4.20-5.60); RED CELL DISTRIBUTION WIDTH 13.8 % (11.5-14.5); WHITE BLOOD COUNT 4.1 X10'3 (4.5-11.0)
[2020-10-14 05:26] LABS: ALBUMIN 2.3 G/DL (3.4-5.0); ANION GAP 8 (8-16); CALCIUM 7.3 MG/DL (8.5-10.1); CHLORIDE 115 MMOL/L (99-107); CREATININE 1.12 MG/DL (0.40-0.90); GLUCOSE 104 MG/DL (70-104); POTASSIUM 4.4 MMOL/L (3.5-5.1); SODIUM 144 MMOL/L (135-145); TOTAL CARBON DIOXIDE 21.4 MMOL/L (24-32); eGFR 47 ML/MIN
[2020-10-14 05:49] LABS: BLOOD UREA NITROGEN 26 MG/DL (7-18); BUN/CREATININE RATIO 23.2 (6.6-38.0)
[2020-10-14] MEDS ORDERED: acetaminophen 325mg tablet PO PRN (06:05)
[2020-10-14] MEDS ORDERED: diphenhydrAMINE 50 mg/ml inj IV PRN (06:05)
[2020-10-14] MEDS ORDERED: diphenhydrAMINE 25mg capsule PO PRN (06:05)
[2020-10-14] MEDS ORDERED: mag hydrox/Alum hydrox/simeth 30ml oral suspension PO PRN (06:05)
[2020-10-14] MEDS ORDERED: magnesium hydroxide 30ml (MOM) UD suspension PO PRN (06:05)
[2020-10-14] MEDS ORDERED: bisacodyl 10mg suppository rectal RC PRN (06:05)
[2020-10-14] MEDS ORDERED: acetaminophen 650mg rectal suppository RC PRN (06:05)
[2020-10-14] MEDS ORDERED: naloxone 0.4 mg/ml inj IV PRN (06:10)
[2020-10-14] MEDS: normal saline 1000ml 1,000 ML IV SCH ×2 (06:45→16:05)
--- NOTE | 2020-10-14 07:28 | NUR ---
Spoke with pt's daughter, Lisa Gaines. She stated that this is her mom's 3rd drug overdose. She firmly believes that if the pt's grandson hadn't checked on her before he went to bed that she would have last night. Lisa is wanting to talk more with someone regarding her mother going to a usp. She also states that her mother will save her pain patches so that she can put multiple patches on at a time.
[2020-10-14 08:06] LABS: MAGNESIUM 1.7 MG/DL (1.5-2.4)
[2020-10-14] MEDS: heparin, porcine 5000 units/ml vial SQ SCH ×2 (08:11→21:05)
[2020-10-14] MEDS: pantoprazole 40mg Tablet.DR PO SCH (08:11)
[2020-10-14] MEDS: docusate sod 100mg capsule PO SCH ×2 (08:11→21:04)
--- NOTE | 2020-10-14 09:58 | NUR ---
Pt sleeping. Respirations unlabored. NAD
[2020-10-14] MEDS ORDERED: LISI20TA PO (11:23)
[2020-10-14] MEDS ORDERED: DULO60CA65 PO (11:23)
[2020-10-14 11:34] LABS: PARTIAL THROMBOPLASTIN TIME 30 SECONDS (22-32)
--- NOTE | 2020-10-14 12:42 | NUR ---
Pt awake and denies any needs at this time.
[2020-10-14 18:00] VITALS: BP 153/62
--- NOTE | 2020-10-14 18:10 | NUR ---
Report received and discussed with TAMI Jack.
[2020-10-14 22:00] VITALS: BP 137/44
--- NOTE | 2020-10-14 23:00 | NUR ---
night physician licensed nurse practitioner have been notified about patient's positive blood culture.
[2020-10-15] MEDS: vancomycin/NS 1 GM ADD-VANTAGE 250 ML IV SCH ×2 (00:45→22:18)
[2020-10-15] MEDS: acetaminophen 325mg tablet PO PRN ×2 (00:54→14:55)
[2020-10-15 02:00] VITALS: BP 115/40
[2020-10-15] MEDS: normal saline 1000ml 1,000 ML IV SCH ×3 (02:05→22:19)
--- NOTE | 2020-10-15 06:17 | NUR ---
Report given to TAMI Waller.
--- NOTE | 2020-10-15 06:28 | NUR ---
Patient in room PCU 3015B. I have received report from TAMI HEBERT and had the opportunity to ask questions and assume patient care.
[2020-10-15 07:00] VITALS: BP 123/50
[2020-10-15 07:24] LABS: BASOPHILS % (AUTO) 0.6 % (0-1); EOSINOPHILS # (AUTO) 0.3 X10'3 (0-0.9); HEMATOCRIT 27.3 % (35.0-45.0); HEMOGLOBIN 8.8 g/dl (12.0-16.0); LYMPHOCYTES # (AUTO) 1.4 X10'3 (1.1-4.8); LYMPHOCYTES % (AUTO) 31.7 % (21-51); MEAN CORPUSCULAR HEMOGLOBIN 30.7 PG (27.0-31.0); MEAN CORPUSCULAR HGB CONC 32.5 g/dL (33.0-36.5); MEAN CORPUSCULAR VOLUME 94.7 FL (78-98); MEAN PLATELET VOLUME 7.5 FL (7.4-10.4); MONOCYTES # (AUTO) 0.3 X10'3 (0-0.9); MONOCYTES % (AUTO) 7.2 % (2-12); NEUTROPHILS # (AUTO) 2.4 X10'3 (1.8-7.7); NEUTROPHILS % (AUTO) 54.5 % (42-75); PLATELET COUNT 287 X10'3 (140-440); RED BLOOD COUNT 2.88 X10'6 (4.20-5.60); RED CELL DISTRIBUTION WIDTH 13.7 % (11.5-14.5); WHITE BLOOD COUNT 4.3 X10'3 (4.5-11.0)
[2020-10-15] MEDS: docusate sod 100mg capsule PO SCH ×2 (07:38→20:10)
[2020-10-15] MEDS: pantoprazole 40mg Tablet.DR PO SCH (07:38)
[2020-10-15 07:44] LABS: ALANINE AMINOTRANSFERASE 14 U/L (12-78); ALBUMIN 2.4 G/DL (3.4-5.0); ALBUMIN/GLOBULIN RATIO 0.7 (1.1-1.5); ALKALINE PHOSPHATASE 103 IU/L (46-116); ANION GAP 11 (8-16); ASPARTATE AMINO TRANSFERASE 13 U/L (10-37); BILIRUBIN,TOTAL 0.2 MG/DL (0.1-1.0); BLOOD UREA NITROGEN 16 MG/DL (7-18); BUN/CREATININE RATIO 16.3 (6.6-38.0); CALCIUM 8.6 MG/DL (8.5-10.1); CHLORIDE 118 MMOL/L (99-107); CHOL/HDL RATIO 2.6 (0.00-4.99); CHOLESTEROL 104 MG/DL (0-200); CREATININE 0.98 MG/DL (0.40-0.90); GLUCOSE 92 MG/DL (70-104); HDL CHOLESTEROL 40 MG/DL (35-60); LDL CHOLESTEROL 48 MG/DL (50-100); POTASSIUM 4.6 MMOL/L (3.5-5.1); SODIUM 147 MMOL/L (135-145); TRIGLYCERIDES 124 MG/DL (20-135); eGFR 55 ML/MIN
[2020-10-15] MEDS: heparin, porcine 5000 units/ml vial SQ SCH ×2 (07:46→20:10)
[2020-10-15 11:00] VITALS: BP 171/77
[2020-10-15 15:00] VITALS: BP 158/67
[2020-10-15 18:00] VITALS: BP 165/68
--- NOTE | 2020-10-15 18:56 | NUR ---
Problems reprioritized. Patient report given, questions answered & plan of care reviewed with TAMI HEBERT.
--- NOTE | 2020-10-15 18:59 | NUR ---
Student documentation: I have reviewed and agree with all interventions, assessments performed and documented by YAYA JENSEN.
[2020-10-16 02:00] VITALS: BP 159/64
[2020-10-16 06:00] VITALS: BP 170/69
--- NOTE | 2020-10-16 06:18 | NUR ---
report given to TAMI García.
--- NOTE | 2020-10-16 06:29 | NUR ---
Patient in room PCU 3015. I have received report from TAMI Del Real and had the opportunity to ask questions and assume patient care.
[2020-10-16 07:14] LABS: BASOPHILS % (AUTO) 0.4 % (0-1); EOSINOPHILS # (AUTO) 0.2 X10'3 (0-0.9); EOSINOPHILS % (AUTO) 3.7 % (0-6); HEMATOCRIT 26.9 % (35.0-45.0); HEMOGLOBIN 8.8 g/dl (12.0-16.0); LYMPHOCYTES # (AUTO) 1.1 X10'3 (1.1-4.8); LYMPHOCYTES % (AUTO) 22.7 % (21-51); MEAN CORPUSCULAR HEMOGLOBIN 30.9 PG (27.0-31.0); MEAN CORPUSCULAR HGB CONC 32.7 g/dL (33.0-36.5); MEAN CORPUSCULAR VOLUME 94.4 FL (78-98); MEAN PLATELET VOLUME 7.7 FL (7.4-10.4); MONOCYTES # (AUTO) 0.3 X10'3 (0-0.9); MONOCYTES % (AUTO) 6.6 % (2-12); NEUTROPHILS # (AUTO) 3.3 X10'3 (1.8-7.7); NEUTROPHILS % (AUTO) 66.6 % (42-75); PLATELET COUNT 282 X10'3 (140-440); RED BLOOD COUNT 2.85 X10'6 (4.20-5.60); RED CELL DISTRIBUTION WIDTH 13.9 % (11.5-14.5); WHITE BLOOD COUNT 4.9 X10'3 (4.5-11.0)
[2020-10-16 07:44] LABS: ALANINE AMINOTRANSFERASE 12 U/L (12-78); ALBUMIN 2.3 G/DL (3.4-5.0); ALBUMIN/GLOBULIN RATIO 0.7 (1.1-1.5); ALKALINE PHOSPHATASE 99 IU/L (46-116); ANION GAP 14 (8-16); ASPARTATE AMINO TRANSFERASE 11 U/L (10-37); BILIRUBIN,TOTAL 0.2 MG/DL (0.1-1.0); BLOOD UREA NITROGEN 12 MG/DL (7-18); CALCIUM 8.9 MG/DL (8.5-10.1); CHLORIDE 117 MMOL/L (99-107); CREATININE 0.75 MG/DL (0.40-0.90); GLUCOSE 89 MG/DL (70-104); POTASSIUM 3.9 MMOL/L (3.5-5.1); SODIUM 148 MMOL/L (135-145); TOTAL CARBON DIOXIDE 17.4 MMOL/L (24-32); TOTAL PROTEIN 5.7 G/DL (6.4-8.2); eGFR 75 ML/MIN
[2020-10-16] MEDS: normal saline 1000ml 1,000 ML IV SCH (08:05)
[2020-10-16] MEDS: docusate sod 100mg capsule PO SCH ×2 (08:35→19:34)
[2020-10-16] MEDS: pantoprazole 40mg Tablet.DR PO SCH (08:35)
[2020-10-16] MEDS: heparin, porcine 5000 units/ml vial SQ SCH ×2 (08:36→19:33)
[2020-10-16 11:00] VITALS: BP 163/59
[2020-10-16] MEDS: acetaminophen 325mg tablet PO PRN (12:30)
[2020-10-16 15:00] VITALS: BP 153/62
--- NOTE | 2020-10-16 17:08 | NUR ---
Paged Dr Ceja: PAGER ID: [phone] MESSAGE: sherrie cordova [id number] IV Cardizem gtt on hold since 929 in ER. Would you like to discontinue this med? Raquel [phone]
[2020-10-16 18:00] VITALS: BP 158/63
--- NOTE | 2020-10-16 18:25 | NUR ---
Problems reprioritized. Patient report given, questions answered & plan of care reviewed with TAMI Urias.
[2020-10-16] MEDS: HYDROcodone/acetaminophen 5mg/325mg tablet PO PRN (19:33)
[2020-10-16 22:00] VITALS: BP 160/65
[2020-10-16] MEDS: temazepam 15mg capsule PO PRN (23:16)
[2020-10-16] MEDS: vancomycin/NS 1 GM ADD-VANTAGE 250 ML IV SCH (23:16)
[2020-10-17] MEDS: HYDROcodone/acetaminophen 5mg/325mg tablet PO PRN ×4 (01:12→20:29)
[2020-10-17 02:00] VITALS: BP 156/61
[2020-10-17 06:00] VITALS: BP 157/63
--- NOTE | 2020-10-17 06:29 | NUR ---
Patient in room PCU 3015. I have received report from TAMI Urias and had the opportunity to ask questions and assume patient care.
[2020-10-17 06:34] LABS: BASOPHILS % (AUTO) 0.6 % (0-1); EOSINOPHILS # (AUTO) 0.3 X10'3 (0-0.9); EOSINOPHILS % (AUTO) 5.7 % (0-6); HEMOGLOBIN 9.4 g/dl (12.0-16.0); LYMPHOCYTES # (AUTO) 1.4 X10'3 (1.1-4.8); LYMPHOCYTES % (AUTO) 28.5 % (21-51); MEAN CORPUSCULAR HEMOGLOBIN 31.2 PG (27.0-31.0); MEAN CORPUSCULAR HGB CONC 33.5 g/dL (33.0-36.5); MEAN CORPUSCULAR VOLUME 93.2 FL (78-98); MEAN PLATELET VOLUME 7.5 FL (7.4-10.4); MONOCYTES # (AUTO) 0.3 X10'3 (0-0.9); MONOCYTES % (AUTO) 6.9 % (2-12); NEUTROPHILS # (AUTO) 2.8 X10'3 (1.8-7.7); NEUTROPHILS % (AUTO) 58.3 % (42-75); PLATELET COUNT 287 X10'3 (140-440); RED BLOOD COUNT 3.01 X10'6 (4.20-5.60); RED CELL DISTRIBUTION WIDTH 13.8 % (11.5-14.5); WHITE BLOOD COUNT 4.8 X10'3 (4.5-11.0)
[2020-10-17 06:54] LABS: ALANINE AMINOTRANSFERASE 13 U/L (12-78); ALBUMIN 2.4 G/DL (3.4-5.0); ALBUMIN/GLOBULIN RATIO 0.7 (1.1-1.5); ALKALINE PHOSPHATASE 106 IU/L (46-116); ANION GAP 13 (8-16); ASPARTATE AMINO TRANSFERASE 12 U/L (10-37); BILIRUBIN,TOTAL 0.2 MG/DL (0.1-1.0); BLOOD UREA NITROGEN 10 MG/DL (7-18); BUN/CREATININE RATIO 11.4 (6.6-38.0); CALCIUM 8.9 MG/DL (8.5-10.1); CHLORIDE 114 MMOL/L (99-107); CREATININE 0.88 MG/DL (0.40-0.90); GLUCOSE 94 MG/DL (70-104); POTASSIUM 3.7 MMOL/L (3.5-5.1); SODIUM 146 MMOL/L (135-145); TOTAL CARBON DIOXIDE 19.1 MMOL/L (24-32); eGFR 62 ML/MIN
[2020-10-17] MEDS: docusate sod 100mg capsule PO SCH ×2 (07:31→20:29)
[2020-10-17] MEDS: pantoprazole 40mg Tablet.DR PO SCH (07:31)
[2020-10-17] MEDS: heparin, porcine 5000 units/ml vial SQ SCH ×2 (07:32→20:30)
[2020-10-17 11:00] VITALS: BP 172/69
--- NOTE | 2020-10-17 13:20 | NUR ---
Paged Dr. Ceja: PAGER ID: [phone] MESSAGE: pt Manolo salomon rm [id number] s/p opioid OD. pt reports some pain relief via [place] 5/325 but remains 5 or 12/22. States her home dose is 10/325. Would you like to increase the dose for patient? Tolerates 5/325 very well. Thanks Raquel [phone]
[2020-10-17 15:00] VITALS: BP 174/68
[2020-10-17 18:00] VITALS: BP 161/77
--- NOTE | 2020-10-17 18:22 | NUR ---
Problems reprioritized. Patient report given, questions answered & plan of care reviewed with TAMI Urias and YAYA Ibanez.
[2020-10-17 22:00] VITALS: BP 161/77
[2020-10-17] MEDS ORDERED: VANCOMYCIN LEVEL IV ONE (22:30)
[2020-10-17] MEDS: vancomycin/NS 1 GM ADD-VANTAGE 250 ML IV SCH (23:44)
--- NOTE | 2020-10-18 | NUR ---
elizalde was dc w/o any complications . patient due to void
[2020-10-18 02:00] VITALS: BP 164/64
[2020-10-18] MEDS: HYDROcodone/acetaminophen 5mg/325mg tablet PO PRN ×3 (02:56→15:48)
[2020-10-18 06:00] VITALS: BP 161/61
--- NOTE | 2020-10-18 06:11 | NUR ---
Patient in room PCU 3015. I have received report from TAMI Urias and had the opportunity to ask questions and assume patient care.
[2020-10-18 07:01] LABS: BASOPHILS % (AUTO) 0.4 % (0-1); EOSINOPHILS # (AUTO) 0.3 X10'3 (0-0.9); EOSINOPHILS % (AUTO) 6.1 % (0-6); HEMATOCRIT 28.2 % (35.0-45.0); HEMOGLOBIN 9.5 g/dl (12.0-16.0); LYMPHOCYTES # (AUTO) 1.3 X10'3 (1.1-4.8); LYMPHOCYTES % (AUTO) 22.8 % (21-51); MEAN CORPUSCULAR HEMOGLOBIN 30.7 PG (27.0-31.0); MEAN CORPUSCULAR HGB CONC 33.7 g/dL (33.0-36.5); MEAN CORPUSCULAR VOLUME 91.3 FL (78-98); MEAN PLATELET VOLUME 7.3 FL (7.4-10.4); MONOCYTES # (AUTO) 0.4 X10'3 (0-0.9); MONOCYTES % (AUTO) 6.5 % (2-12); NEUTROPHILS # (AUTO) 3.5 X10'3 (1.8-7.7); NEUTROPHILS % (AUTO) 64.2 % (42-75); PLATELET COUNT 322 X10'3 (140-440); RED BLOOD COUNT 3.09 X10'6 (4.20-5.60); RED CELL DISTRIBUTION WIDTH 13.6 % (11.5-14.5); WHITE BLOOD COUNT 5.5 X10'3 (4.5-11.0)
[2020-10-18 07:19] LABS: ALANINE AMINOTRANSFERASE 13 U/L (12-78); ALBUMIN 2.6 G/DL (3.4-5.0); ALBUMIN/GLOBULIN RATIO 0.7 (1.1-1.5); ALKALINE PHOSPHATASE 114 IU/L (46-116); ANION GAP 12 (8-16); ASPARTATE AMINO TRANSFERASE 12 U/L (10-37); BILIRUBIN,TOTAL 0.2 MG/DL (0.1-1.0); BLOOD UREA NITROGEN 8 MG/DL (7-18); CHLORIDE 113 MMOL/L (99-107); CREATININE 0.89 MG/DL (0.40-0.90); GLUCOSE 97 MG/DL (70-104); POTASSIUM 3.6 MMOL/L (3.5-5.1); SODIUM 146 MMOL/L (135-145); TOTAL CARBON DIOXIDE 21.2 MMOL/L (24-32); TOTAL PROTEIN 6.4 G/DL (6.4-8.2); eGFR 62 ML/MIN
[2020-10-18] MEDS: pantoprazole 40mg Tablet.DR PO SCH (08:26)
[2020-10-18] MEDS: docusate sod 100mg capsule PO SCH ×2 (08:26→20:32)
[2020-10-18] MEDS: heparin, porcine 5000 units/ml vial SQ SCH ×2 (08:26→20:39)
--- NOTE | 2020-10-18 09:21 | NUR ---
Initial: Pt BIB EMS after being found unresponsive and receiving CPR. Pt admit for toxic encephalopathy secondary to opioid overdose and positive blood culture growing staph aureus. Pt on a heart healthy diet and eating well documented with mostly 100% PO intake. Recommend diet advancement to regular given lipid panel WNL with the exception of low LDL (48 mg/dL). LBM 4/5 with PRN bowel care available. No documented edema or wounds. No nutrition diagnosis at this time. Will continue to follow. Recommendations: 1) Advance to regular diet 2) Monitor need for additional protein for satiety 3) Bowel care per rx 4) Scaled weights per rx Addendum: 10/18/20 at [address] Amended: Links added.
[2020-10-18 11:00] VITALS: BP 176/81
--- NOTE | 2020-10-18 11:35 | NUR ---
Paged Dr. Ceja: PAGER ID: [phone] MESSAGE: Manolo Mosley 3015B B/P 215/86, 205/81, 176/69. No PRN HTN tx ordered. Would you like to tx this b/p? Raquel [phone]
[2020-10-18] MEDS: hydrALAZINE 20mg/ml inj. IV PRN (11:47)
--- NOTE | 2020-10-18 12:32 | NUR ---
Paged Dr. Ceja: PAGER ID: [phone] MESSAGE: pt ana salomon rm 3015B pain 04/23 d/t splint change. May pt have one time order for MS to relieve breakthrough pain? Last [place] given @0900. Thank you Raquel [phone]
[2020-10-18] MEDS ORDERED: morphine 2 MG/ML inj. syringe IV ONE ×2 (12:35→20:35)
[2020-10-18] MEDS ORDERED: TRAM50TA2 PO (12:43)
--- NOTE | 2020-10-18 14:19 | NUR ---
Notified Dr Ceja of patient decision re: surgery PAGER ID: [phone] MESSAGE: MARLY salomon s rm 1414H has elected for ORIF w/Dr. Vee tomorrow and will be staying. Raquel [phone]
[2020-10-18 15:00] VITALS: BP 180/57
[2020-10-18] MEDS: ceFAZolin/D5W- 1GM premix 50 ML IV SCH (16:00)
[2020-10-18] MEDS: gabapentin 300mg capsule PO SCH (20:30)
--- NOTE | 2020-10-18 20:31 | NUR ---
PAGER ID: [phone] MESSAGE: [id number] Kaitlynn salomon complaining of 10/10 pain . [place] q6h ordered patient received within last 4.5 hours . may we get a one time order for break through Obdulio roe pcu [id number]
[2020-10-18] MEDS: acetaminophen 325mg tablet PO PRN (20:35)
[2020-10-18] MEDS: ondansetron/PF 4mg/2ml inj IV PRN (20:43)
[2020-10-18 22:00] VITALS: BP 167/66
[2020-10-19] VITALS (14 sets, daily range): BP systolic 131–182; BP diastolic 57–89
[2020-10-19] MEDS: ceFAZolin/D5W- 1GM premix 50 ML IV SCH ×4 (00:06→23:17)
[2020-10-19] MEDS: HYDROcodone/acetaminophen 5mg/325mg tablet PO PRN ×2 (00:17→07:44)
[2020-10-19] MEDS: temazepam 15mg capsule PO PRN ×2 (00:17→23:29)
[2020-10-19] MEDS: hydrALAZINE 20mg/ml inj. IV PRN ×2 (02:21→22:38)
--- NOTE | 2020-10-19 06:20 | NUR ---
Patient in room PCU 3015. I have received report from Adonay GARRETT and had the opportunity to ask questions and assume patient care.
[2020-10-19] MEDS: docusate sod 100mg capsule PO SCH ×2 (07:42→21:54)
[2020-10-19] MEDS: pantoprazole 40mg Tablet.DR PO SCH (07:42)
[2020-10-19] MEDS: lisinopril 20mg tablet PO SCH (07:43)
[2020-10-19] MEDS: gabapentin 300mg capsule PO SCH (07:43)
[2020-10-19] MEDS: heparin, porcine 5000 units/ml vial SQ SCH ×2 (08:00→21:53)
[2020-10-19 09:05] LABS: BASOPHILS % (AUTO) 0.5 % (0-1); EOSINOPHILS # (AUTO) 0.4 X10'3 (0-0.9); EOSINOPHILS % (AUTO) 4.5 % (0-6); HEMATOCRIT 31.2 % (35.0-45.0); HEMOGLOBIN 10.6 g/dl (12.0-16.0); LYMPHOCYTES # (AUTO) 1.1 X10'3 (1.1-4.8); LYMPHOCYTES % (AUTO) 12.8 % (21-51); MEAN CORPUSCULAR HEMOGLOBIN 30.9 PG (27.0-31.0); MEAN PLATELET VOLUME 7.4 FL (7.4-10.4); MONOCYTES # (AUTO) 0.4 X10'3 (0-0.9); MONOCYTES % (AUTO) 4.8 % (2-12); NEUTROPHILS # (AUTO) 6.4 X10'3 (1.8-7.7); NEUTROPHILS % (AUTO) 77.4 % (42-75); PLATELET COUNT 383 X10'3 (140-440); RED BLOOD COUNT 3.43 X10'6 (4.20-5.60); RED CELL DISTRIBUTION WIDTH 13.7 % (11.5-14.5); WHITE BLOOD COUNT 8.3 X10'3 (4.5-11.0)
[2020-10-19 09:18] LABS: ALANINE AMINOTRANSFERASE 15 U/L (12-78); ALBUMIN/GLOBULIN RATIO 0.8 (1.1-1.5); ALKALINE PHOSPHATASE 128 IU/L (46-116); ANION GAP 13 (8-16); ASPARTATE AMINO TRANSFERASE 14 U/L (10-37); BILIRUBIN,TOTAL 0.2 MG/DL (0.1-1.0); BLOOD UREA NITROGEN 10 MG/DL (7-18); BUN/CREATININE RATIO 11.9 (6.6-38.0); CALCIUM 9.1 MG/DL (8.5-10.1); CHLORIDE 111 MMOL/L (99-107); CREATININE 0.84 MG/DL (0.40-0.90); GLUCOSE 111 MG/DL (70-104); POTASSIUM 3.2 MMOL/L (3.5-5.1); SODIUM 146 MMOL/L (135-145); TOTAL CARBON DIOXIDE 22.1 MMOL/L (24-32); eGFR 66 ML/MIN
[2020-10-19] MEDS ORDERED: ringers solution, lacted 1,000 ML IV SCH ×2 (10:26→20:10)
--- NOTE | 2020-10-19 10:28 | NUR ---
PAGER ID: [phone] MESSAGE: Re: Kaitlynn Montejo. Room: [facility]. Pt has morning potassium of 3.2. Can I put replacement orders in? -Rich [facility] #[id number] -Dr. Odell paged concerning K/Mag replacement orders
[2020-10-19] MEDS ORDERED: famotidine/PF 10 mg/ml inj IV ONE (10:30)
[2020-10-19] MEDS ORDERED: magnesium Cl slow-release 64mg tablet PO PRN (11:15)
[2020-10-19] MEDS ORDERED: potassium Cl 20 mEq SR tablet PO PRN (11:15)
[2020-10-19] MEDS ORDERED: potassium Cl 40MEQ/1/2NS 520ml 520 ML IV PRN (11:15)
[2020-10-19] MEDS ORDERED: magnesium 4gm in 100ml NS 100 ML IV PRN (11:15)
[2020-10-19] MEDS: potassium Cl 20 mEq SR tablet PO PRN ×3 (11:33→21:54)
[2020-10-19] MEDS: HYDROcodone/acetaminophen 10/325mg tab PO PRN (11:34)
--- NOTE | 2020-10-19 11:38 | NUR ---
5F DUAL LUMEN MIDLINE PLACEMENT TO RIGHT BASILIC VEIN X'S 1 ATTEMPT WITH SUCCESS USING ULTRASOUND GUIDANCE, TIP ENDS MID-AXILLARY. BOTH LUMENS ASPIRATE BLOOD AND FLUSH WITHOUT DIFFICULTY. Tiffany LUNDY PICC RN
[2020-10-19] MEDS ORDERED: bacitracin 15gm ointment TP ONE (17:20)
[2020-10-19] MEDS ORDERED: BUPIVAcaine/PF 2.5 mg/ml (0.25%) 30ml vial ONE (17:20)
--- NOTE | 2020-10-19 18:13 | NUR ---
Problems reprioritized. Patient report given, questions answered & plan of care reviewed with Adonay GARRETT.
[2020-10-19] MEDS ORDERED: BUPIVAcaine 0.5% inj/PF 30 ML ONE (18:38)
[2020-10-19] MEDS ORDERED: BUPIVACAINE liposomal/PF 13.3 MG/ML vial IM ONE (18:38)
[2020-10-19] MEDS ORDERED: sevoflurane 250ml liquid IH ONE (18:41)
[2020-10-19] MEDS ORDERED: midazolam 1 mg/ML 2ml injection ONE (18:42)
[2020-10-19] MEDS ORDERED: fentaNYL/PF 50MCG/1 ML 2ML syringe ONE ×2 (18:42→20:32)
[2020-10-19] MEDS ORDERED: ePHEDrine 50MG/ML INJ. ONE (19:27)
[2020-10-19] MEDS ORDERED: ceFAZolin 1000mg inj ONE ×2 (19:28)
[2020-10-19] MEDS ORDERED: propofol inj 20 ML IV ONE (19:28)
[2020-10-19] MEDS: K and/or MAG REPLACEMENT MC SCH (20:00)
[2020-10-19] MEDS ORDERED: proCHLORperazine 10 MG/2 ml inj IV PRN (20:10)
[2020-10-19] MEDS ORDERED: meperidine/PF 25mg/ml syringe IV PRN ×3 (20:10)
[2020-10-19] MEDS ORDERED: morphine 4 MG/ML inj SYRINge IV PRN (20:10)
[2020-10-19] MEDS ORDERED: ondansetron/PF 4mg/2ml inj IV PRN (20:10)
[2020-10-19] MEDS ORDERED: morphine 2 MG/ML inj. syringe IV PRN (20:10)
--- NOTE | 2020-10-19 21:05 | NUR ---
Received from OR via BED, accompanied by Anesthesiologist DR. MORENO and report given by Anesthesiolgist. PT AWAKE, FOLLOWING COMMANDS. VSS. MOVES RT ARM AND LEGS WELL, LT ARM IMMOBILIZED BUT WIGGLES FINGERS. PULSES AND MATERIAL FLOW ENGINEER WNL T/O. LT ARM IN SLING AND SPLINT. DENIES PAIN
--- NOTE | 2020-10-19 21:45 | NUR ---
Report called to receiving nurse RENARD GARRETT AND LOLITA RN. Transferred via BED TO ROOM 6204H. Belongings NONE BROUGHT TO RR. Special Issues communicated to receiving nurse. PT VSS, NO CHANGE IN PT COND,
--- NOTE | 2020-10-19 21:50 | NUR ---
Pt arrived at 2150 from PACU. Pt in NAD. Pt c/o burning sensation to incision site and rates pain /. Cap refill less than <3 sec. Pt able to grasp finger. Pulse unable to access. Addendum: 10/20/20 at 0150 by Edda DALY RN Scheduled gabapentin given for pain with good effect.
[2020-10-19] MEDS: gabapentin 400mg capsule PO SCH (21:53)
[2020-10-19] MEDS: lactobacillus rhamnosus 10,000 MMU CELLS/CAPSULE PO SCH (21:53)
[2020-10-20] VITALS (9 sets, daily range): BP systolic 116–166; BP diastolic 57–102
[2020-10-20 05:25] LABS: BASOPHILS % (AUTO) 0.3 % (0-1); EOSINOPHILS # (AUTO) 0.2 X10'3 (0-0.9); HEMOGLOBIN 8.9 g/dl (12.0-16.0); LYMPHOCYTES # (AUTO) 0.8 X10'3 (1.1-4.8); LYMPHOCYTES % (AUTO) 8.9 % (21-51); MEAN CORPUSCULAR HEMOGLOBIN 30.7 PG (27.0-31.0); MEAN CORPUSCULAR HGB CONC 33.1 g/dL (33.0-36.5); MEAN CORPUSCULAR VOLUME 92.7 FL (78-98); MEAN PLATELET VOLUME 7.1 FL (7.4-10.4); MONOCYTES # (AUTO) 0.6 X10'3 (0-0.9); MONOCYTES % (AUTO) 6.6 % (2-12); NEUTROPHILS # (AUTO) 7.5 X10'3 (1.8-7.7); NEUTROPHILS % (AUTO) 82.2 % (42-75); PLATELET COUNT 348 X10'3 (140-440); RED BLOOD COUNT 2.91 X10'6 (4.20-5.60); RED CELL DISTRIBUTION WIDTH 14.7 % (11.5-14.5); WHITE BLOOD COUNT 9.2 X10'3 (4.5-11.0)
[2020-10-20 05:32] LABS: ANION GAP 6 (8-16); BILIRUBIN,TOTAL 0.2 MG/DL (0.1-1.0); BLOOD UREA NITROGEN 11 MG/DL (7-18); BUN/CREATININE RATIO 10.9 (6.6-38.0); CALCIUM 8.3 MG/DL (8.5-10.1); CHLORIDE 114 MMOL/L (99-107); CREATININE 1.01 MG/DL (0.40-0.90); GLUCOSE 108 MG/DL (70-104); POTASSIUM 3.9 MMOL/L (3.5-5.1); SODIUM 144 MMOL/L (135-145); TOTAL CARBON DIOXIDE 23.9 MMOL/L (24-32); eGFR 53 ML/MIN
[2020-10-20 05:33] LABS: ALANINE AMINOTRANSFERASE 12 U/L (12-78); ALBUMIN 2.5 G/DL (3.4-5.0); ALBUMIN/GLOBULIN RATIO 0.8 (1.1-1.5); ALKALINE PHOSPHATASE 101 IU/L (46-116); ASPARTATE AMINO TRANSFERASE 15 U/L (10-37); TOTAL PROTEIN 5.7 G/DL (6.4-8.2)
--- NOTE | 2020-10-20 06:04 | NUR ---
Patient in room PCU 3015. I have received report from Adonay GARRETT and had the opportunity to ask questions and assume patient care.
[2020-10-20] MEDS: K and/or MAG REPLACEMENT MC SCH ×2 (08:00→19:57)
[2020-10-20] MEDS: lactobacillus rhamnosus 10,000 MMU CELLS/CAPSULE PO SCH ×2 (08:52→19:56)
[2020-10-20] MEDS: docusate sod 100mg capsule PO SCH ×2 (08:52→19:56)
[2020-10-20] MEDS: gabapentin 400mg capsule PO SCH ×2 (08:53→19:56)
[2020-10-20] MEDS: heparin, porcine 5000 units/ml vial SQ SCH ×2 (08:53→19:56)
[2020-10-20] MEDS: lisinopril 20mg tablet PO SCH (08:53)
[2020-10-20] MEDS: ceFAZolin/D5W- 1GM premix 50 ML IV SCH ×2 (08:54→15:45)
[2020-10-20] MEDS: HYDROcodone/acetaminophen 10/325mg tab PO PRN (08:56)
[2020-10-20] MEDS: pantoprazole 40mg Tablet.DR PO SCH (08:57)
--- NOTE | 2020-10-20 10:59 | NUR ---
Dr. Odell at bedside with patient and nurse. DC LR fluids and [place]. New orders Percocet 5 Q6 PRN. Pt teary eyed MD would like another night stay. Will continue to monitor.
[2020-10-20] MEDS: oxyCODONE/APAP 5-325mg tablet PO PRN ×2 (11:17→18:33)
--- NOTE | 2020-10-20 12:06 | NUR ---
wound care consult for patient was ordered on the wrong patient. WOC notified primary nurse.
--- NOTE | 2020-10-20 12:31 | NUR ---
Veronica Webb at bedside with pt and nurse. MD aware of pain. New orders Dilaudid 0.5 IV q2h PRN breakthrough pain. MD order pillow. MD order powder ice packs
[2020-10-20] MEDS: HYDROmorphone inj. 0.5 MG/0.5 ML DISP.SYRIN IV PRN ×4 (12:42→22:34)
--- NOTE | 2020-10-20 17:57 | NUR ---
[place]rientee documentation: I have reviewed and agree with all interventions, assessments performed and documented by Alfie GARRETT.
--- NOTE | 2020-10-20 18:09 | NUR ---
Problems reprioritized. Patient report given, questions answered & plan of care reviewed with Adonay GARRETT.
[2020-10-20] MEDS: temazepam 15mg capsule PO PRN (22:31)
[2020-10-21 02:00] VITALS: BP 154/61
[2020-10-21] MEDS: HYDROmorphone inj. 0.5 MG/0.5 ML DISP.SYRIN IV PRN ×3 (02:57→18:37)
--- NOTE | 2020-10-21 06:32 | NUR ---
Patient in room PCU 3015. I have received report from RENARD and had the opportunity to ask questions and assume patient care.
--- NOTE | 2020-10-21 06:32 | NUR ---
Patient in room PCU 3015. I have received report from Adonay GARRETT and had the opportunity to ask questions and assume patient care.
[2020-10-21 07:00] VITALS: BP 129/66
[2020-10-21] MEDS: ceFAZolin/D5W- 1GM premix 50 ML IV SCH ×4 (07:21→23:13)
[2020-10-21] MEDS: docusate sod 100mg capsule PO SCH ×2 (07:21→20:20)
[2020-10-21] MEDS: lactobacillus rhamnosus 10,000 MMU CELLS/CAPSULE PO SCH ×2 (07:21→20:20)
[2020-10-21] MEDS: gabapentin 400mg capsule PO SCH ×2 (07:21→20:20)
[2020-10-21] MEDS: pantoprazole 40mg Tablet.DR PO SCH (07:21)
[2020-10-21] MEDS: heparin, porcine 5000 units/ml vial SQ SCH ×2 (07:23→20:20)
[2020-10-21] MEDS: lisinopril 20mg tablet PO SCH (07:23)
[2020-10-21] MEDS: oxyCODONE/APAP 5-325mg tablet PO PRN ×2 (07:25→14:11)
[2020-10-21 07:42] LABS: BASOPHILS % (AUTO) 0.3 % (0-1); EOSINOPHILS # (AUTO) 0.1 X10'3 (0-0.9); EOSINOPHILS % (AUTO) 1.6 % (0-6); HEMATOCRIT 25.1 % (35.0-45.0); HEMOGLOBIN 8.4 g/dl (12.0-16.0); LYMPHOCYTES # (AUTO) 1.3 X10'3 (1.1-4.8); MEAN CORPUSCULAR HEMOGLOBIN 31.1 PG (27.0-31.0); MEAN CORPUSCULAR HGB CONC 33.5 g/dL (33.0-36.5); MEAN CORPUSCULAR VOLUME 92.9 FL (78-98); MEAN PLATELET VOLUME 7.6 FL (7.4-10.4); MONOCYTES # (AUTO) 0.8 X10'3 (0-0.9); MONOCYTES % (AUTO) 9.1 % (2-12); NEUTROPHILS # (AUTO) 6.8 X10'3 (1.8-7.7); PLATELET COUNT 309 X10'3 (140-440); RED BLOOD COUNT 2.71 X10'6 (4.20-5.60); RED CELL DISTRIBUTION WIDTH 14.8 % (11.5-14.5); WHITE BLOOD COUNT 9.1 X10'3 (4.5-11.0)
[2020-10-21] MEDS: K and/or MAG REPLACEMENT MC SCH ×2 (08:00→20:00)
[2020-10-21 08:21] LABS: ALANINE AMINOTRANSFERASE 11 U/L (12-78); ALBUMIN 2.4 G/DL (3.4-5.0); ALBUMIN/GLOBULIN RATIO 0.7 (1.1-1.5); ALKALINE PHOSPHATASE 91 IU/L (46-116); ANION GAP 9 (8-16); ASPARTATE AMINO TRANSFERASE 15 U/L (10-37); BILIRUBIN,TOTAL 0.2 MG/DL (0.1-1.0); BLOOD UREA NITROGEN 14 MG/DL (7-18); BUN/CREATININE RATIO 12.5 (6.6-38.0); CALCIUM 8.6 MG/DL (8.5-10.1); CHLORIDE 110 MMOL/L (99-107); CREATININE 1.12 MG/DL (0.40-0.90); GLUCOSE 117 MG/DL (70-104); POTASSIUM 3.9 MMOL/L (3.5-5.1); SODIUM 143 MMOL/L (135-145); TOTAL CARBON DIOXIDE 23.9 MMOL/L (24-32); eGFR 47 ML/MIN
[2020-10-21 11:00] VITALS: BP 117/54
[2020-10-21 15:00] VITALS: BP 135/68
[2020-10-21 18:00] VITALS: BP 173/67
--- NOTE | 2020-10-21 18:05 | NUR ---
Problems reprioritized. Patient report given to jemima, questions answered & plan of care reviewed with .
--- NOTE | 2020-10-21 18:06 | NUR ---
Problems reprioritized. Patient report given, questions answered & plan of care reviewed with Denia GARRETT.
--- NOTE | 2020-10-21 18:06 | NUR ---
[place]rientee documentation: I have reviewed and agree with all interventions, assessments performed and documented by Angel GARRETT .
[2020-10-21] MEDS: hydrALAZINE 20mg/ml inj. IV PRN (18:36)
[2020-10-21] MEDS: temazepam 15mg capsule PO PRN (20:19)
[2020-10-21 22:00] VITALS: BP 131/56
[2020-10-22] MEDS: oxyCODONE/APAP 5-325mg tablet PO PRN (01:26)
[2020-10-22 02:00] VITALS: BP 112/51
--- NOTE | 2020-10-22 06:30 | NUR ---
Patient in room PCU 3015. I have received report from Adonay and William Rns and had the opportunity to ask questions and assume patient care.
[2020-10-22 07:00] VITALS: BP 146/66
[2020-10-22] MEDS: K and/or MAG REPLACEMENT MC SCH ×2 (08:00→19:13)
[2020-10-22] MEDS: HYDROmorphone inj. 0.5 MG/0.5 ML DISP.SYRIN IV PRN ×2 (08:12→15:57)
[2020-10-22] MEDS: ceFAZolin/D5W- 1GM premix 50 ML IV SCH ×2 (08:12→15:56)
[2020-10-22] MEDS: lactobacillus rhamnosus 10,000 MMU CELLS/CAPSULE PO SCH ×2 (08:13→19:39)
[2020-10-22] MEDS: lisinopril 20mg tablet PO SCH (08:13)
[2020-10-22] MEDS: heparin, porcine 5000 units/ml vial SQ SCH ×2 (08:13→19:40)
[2020-10-22] MEDS: gabapentin 400mg capsule PO SCH ×2 (08:13→19:39)
[2020-10-22] MEDS: pantoprazole 40mg Tablet.DR PO SCH (08:13)
[2020-10-22] MEDS: docusate sod 100mg capsule PO SCH ×2 (08:14→19:39)
[2020-10-22] MEDS: oxyCODONE/APAP 10/325mg tablet PO PRN ×2 (10:48→19:40)
[2020-10-22 11:00] VITALS: BP 104/59
--- NOTE | 2020-10-22 12:02 | NUR ---
Dr. Coppola and nurse at bedside with patient. MD is aware that pt is asking for pain meds often. Pt will need ABX til the . As of right now, no rehab facilities are able to take pt. Pt will need to stay in hospital for ABX course. Will continue to monitor.
[2020-10-22 15:00] VITALS: BP 134/51
[2020-10-22 18:00] VITALS: BP 172/64
--- NOTE | 2020-10-22 18:22 | NUR ---
Problems reprioritized. Patient report given, questions answered & plan of care reviewed with kirk GARRETT.
[2020-10-22] MEDS: temazepam 15mg capsule PO PRN (21:12)
[2020-10-22 22:00] VITALS: BP 115/49
[2020-10-23] MEDS: HYDROmorphone inj. 0.5 MG/0.5 ML DISP.SYRIN IV PRN ×3 (00:24→21:11)
[2020-10-23] MEDS: ondansetron/PF 4mg/2ml inj IV PRN ×2 (00:25→21:10)
[2020-10-23] MEDS: ceFAZolin/D5W- 1GM premix 50 ML IV SCH ×4 (00:26→23:16)
[2020-10-23 02:00] VITALS: BP 132/64
--- NOTE | 2020-10-23 06:17 | NUR ---
Patient in room PCU 3015. I have received report from William GARRETT and had the opportunity to ask questions and assume patient care.
[2020-10-23 07:00] VITALS: BP 159/60
[2020-10-23 07:58] LABS: % IRON SATURATION 15 % (11-46); ALANINE AMINOTRANSFERASE 6 U/L (12-78); ALBUMIN 2.2 G/DL (3.4-5.0); ALBUMIN/GLOBULIN RATIO 0.6 (1.1-1.5); ALKALINE PHOSPHATASE 79 IU/L (46-116); ANION GAP 9 (8-16); ASPARTATE AMINO TRANSFERASE 12 U/L (10-37); BILIRUBIN,TOTAL 0.2 MG/DL (0.1-1.0); BLOOD UREA NITROGEN 17 MG/DL (7-18); BUN/CREATININE RATIO 18.9 (6.6-38.0); CALCIUM 9.1 MG/DL (8.5-10.1); CHLORIDE 113 MMOL/L (99-107); GLUCOSE 102 MG/DL (70-104); IRON 29 UG/DL (49-151); POTASSIUM 4.2 MMOL/L (3.5-5.1); SODIUM 145 MMOL/L (135-145); TOTAL CARBON DIOXIDE 23.1 MMOL/L (24-32); TOTAL IRON BINDING CAPACITY 197 UG/DL (259-388); eGFR 61 ML/MIN
[2020-10-23] MEDS: K and/or MAG REPLACEMENT MC SCH ×2 (08:00→20:10)
[2020-10-23] MEDS: docusate sod 100mg capsule PO SCH ×2 (08:42→20:07)
[2020-10-23] MEDS: gabapentin 400mg capsule PO SCH ×2 (08:42→20:07)
[2020-10-23] MEDS: lactobacillus rhamnosus 10,000 MMU CELLS/CAPSULE PO SCH ×2 (08:42→20:07)
[2020-10-23] MEDS: pantoprazole 40mg Tablet.DR PO SCH (08:42)
[2020-10-23] MEDS: lisinopril 20mg tablet PO SCH (08:43)
[2020-10-23] MEDS: oxyCODONE/APAP 10/325mg tablet PO PRN ×3 (08:44→23:19)
[2020-10-23] MEDS: heparin, porcine 5000 units/ml vial SQ SCH ×2 (08:44→20:09)
[2020-10-23 09:50] LABS: BASOPHILS % (AUTO) 0.5 % (0-1); EOSINOPHILS # (AUTO) 0.3 X10'3 (0-0.9); EOSINOPHILS % (AUTO) 5.7 % (0-6); HEMATOCRIT 23.7 % (35.0-45.0); HEMOGLOBIN 7.7 g/dl (12.0-16.0); LYMPHOCYTES # (AUTO) 0.9 X10'3 (1.1-4.8); LYMPHOCYTES % (AUTO) 14.8 % (21-51); MEAN CORPUSCULAR HEMOGLOBIN 30.9 PG (27.0-31.0); MEAN CORPUSCULAR HGB CONC 32.3 g/dL (33.0-36.5); MEAN CORPUSCULAR VOLUME 95.8 FL (78-98); MEAN PLATELET VOLUME 7.9 FL (7.4-10.4); MONOCYTES # (AUTO) 0.3 X10'3 (0-0.9); MONOCYTES % (AUTO) 5.9 % (2-12); NEUTROPHILS # (AUTO) 4.2 X10'3 (1.8-7.7); NEUTROPHILS % (AUTO) 73.1 % (42-75); PLATELET COUNT 328 X10'3 (140-440); RED BLOOD COUNT 2.48 X10'6 (4.20-5.60); RED CELL DISTRIBUTION WIDTH 15.2 % (11.5-14.5); WHITE BLOOD COUNT 5.8 X10'3 (4.5-11.0)
[2020-10-23 11:00] VITALS: BP 136/63
[2020-10-23 15:00] VITALS: BP 144/81
[2020-10-23] MEDS: ferrous sulfate 325mg tablet PO SCH (16:51)
[2020-10-23] MEDS: ascorbic acid 500mg tablet PO SCH (16:52)
[2020-10-23 18:00] VITALS: BP 159/85
--- NOTE | 2020-10-23 18:23 | NUR ---
Problems reprioritized. Patient report given, questions answered & plan of care reviewed with William GARRETT.
[2020-10-23 22:00] VITALS: BP 146/75
[2020-10-23] MEDS: temazepam 15mg capsule PO PRN (22:14)
[2020-10-24 02:00] VITALS: BP 152/58
[2020-10-24] MEDS: ondansetron/PF 4mg/2ml inj IV PRN ×2 (02:55→20:03)
[2020-10-24] MEDS: HYDROmorphone inj. 0.5 MG/0.5 ML DISP.SYRIN IV PRN ×4 (02:56→21:49)
--- NOTE | 2020-10-24 06:19 | NUR ---
Patient in room PCU 3015. I have received report from William GARRETT and had the opportunity to ask questions and assume patient care.
[2020-10-24 07:00] VITALS: BP 131/56
[2020-10-24] MEDS: ferrous sulfate 325mg tablet PO SCH ×2 (07:31→16:57)
[2020-10-24] MEDS: pantoprazole 40mg Tablet.DR PO SCH (07:31)
[2020-10-24] MEDS: gabapentin 400mg capsule PO SCH ×2 (07:31→19:46)
[2020-10-24] MEDS: lactobacillus rhamnosus 10,000 MMU CELLS/CAPSULE PO SCH ×2 (07:31→19:46)
[2020-10-24] MEDS: docusate sod 100mg capsule PO SCH ×2 (07:31→19:46)
[2020-10-24] MEDS: oxyCODONE/APAP 10/325mg tablet PO PRN ×3 (07:32→20:03)
[2020-10-24] MEDS: heparin, porcine 5000 units/ml vial SQ SCH ×2 (07:32→19:46)
[2020-10-24] MEDS: ascorbic acid 500mg tablet PO SCH ×2 (07:32→16:56)
[2020-10-24] MEDS: lisinopril 20mg tablet PO SCH (07:32)
[2020-10-24] MEDS: ceFAZolin/D5W- 1GM premix 50 ML IV SCH ×2 (07:33→16:56)
[2020-10-24] MEDS: K and/or MAG REPLACEMENT MC SCH ×2 (08:00→19:19)
[2020-10-24 08:03] LABS: BASOPHILS % (AUTO) 0.6 % (0-1); EOSINOPHILS # (AUTO) 0.4 X10'3 (0-0.9); EOSINOPHILS % (AUTO) 5.6 % (0-6); HEMATOCRIT 23.5 % (35.0-45.0); HEMOGLOBIN 7.9 g/dl (12.0-16.0); LYMPHOCYTES # (AUTO) 1.6 X10'3 (1.1-4.8); LYMPHOCYTES % (AUTO) 24.5 % (21-51); MEAN CORPUSCULAR HEMOGLOBIN 31.5 PG (27.0-31.0); MEAN CORPUSCULAR HGB CONC 33.3 g/dL (33.0-36.5); MEAN CORPUSCULAR VOLUME 94.4 FL (78-98); MEAN PLATELET VOLUME 7.6 FL (7.4-10.4); MONOCYTES # (AUTO) 0.4 X10'3 (0-0.9); MONOCYTES % (AUTO) 6.6 % (2-12); NEUTROPHILS % (AUTO) 62.7 % (42-75); PLATELET COUNT 363 X10'3 (140-440); RED CELL DISTRIBUTION WIDTH 15.3 % (11.5-14.5); WHITE BLOOD COUNT 6.3 X10'3 (4.5-11.0)
[2020-10-24 08:17] LABS: ALANINE AMINOTRANSFERASE 9 U/L (12-78); ALBUMIN 2.4 G/DL (3.4-5.0); ALBUMIN/GLOBULIN RATIO 0.6 (1.1-1.5); ALKALINE PHOSPHATASE 91 IU/L (46-116); ANION GAP 10 (8-16); ASPARTATE AMINO TRANSFERASE 12 U/L (10-37); BILIRUBIN,TOTAL 0.2 MG/DL (0.1-1.0); BLOOD UREA NITROGEN 17 MG/DL (7-18); BUN/CREATININE RATIO 17.2 (6.6-38.0); CALCIUM 9.5 MG/DL (8.5-10.1); CHLORIDE 111 MMOL/L (99-107); CREATININE 0.99 MG/DL (0.40-0.90); GLUCOSE 105 MG/DL (70-104); POTASSIUM 4.6 MMOL/L (3.5-5.1); SODIUM 145 MMOL/L (135-145); TOTAL CARBON DIOXIDE 24.2 MMOL/L (24-32); TOTAL PROTEIN 6.6 G/DL (6.4-8.2); eGFR 55 ML/MIN
[2020-10-24 11:00] VITALS: BP 128/54
[2020-10-24 15:00] VITALS: BP 164/54
--- NOTE | 2020-10-24 15:37 | NUR ---
Reassessment: Pt PO avg 75-100%% at meals on a heart healthy diet meeting estimated nutrient needs. Last BM 10/23 with routine and PRN bowel care available. No nutrition concerns at this time. Will continue to monitor. Recommendations: 1) Continue heart healthy diet 2) Bowel care per rx 3) Scaled weights per rx Addendum: 10/24/20 at [address] Amended: Links added. Addendum: 10/24/20 at [address] PHIL agrees w/ above internal medicine nurse note.
--- NOTE | 2020-10-24 15:39 | NUR ---
Page Sent promotional table spacer PAGER ID: [phone] MESSAGE: [id number] [place] . Patient's daughter would like for patient to continue home meds Seroquel 50mg tab take two PO hour of sleep PRN and Duloxetine 1 cap 60 mg PO daily. Lianet [id number]
--- NOTE | 2020-10-24 18:10 | NUR ---
Problems reprioritized. Patient report given, questions answered & plan of care reviewed with William GARRETT.
[2020-10-24 19:00] VITALS: BP 185/87
[2020-10-24] MEDS: hydrALAZINE 20mg/ml inj. IV PRN (19:45)
[2020-10-24 22:00] VITALS: BP 152/52
[2020-10-25] MEDS: temazepam 15mg capsule PO PRN (00:49)
[2020-10-25] MEDS: ceFAZolin/D5W- 1GM premix 50 ML IV SCH ×2 (00:50→08:25)
[2020-10-25 02:00] VITALS: BP 161/59
[2020-10-25] MEDS: ondansetron/PF 4mg/2ml inj IV PRN (03:00)
[2020-10-25] MEDS: HYDROmorphone inj. 0.5 MG/0.5 ML DISP.SYRIN IV PRN ×2 (03:00→11:03)
--- NOTE | 2020-10-25 06:30 | NUR ---
Patient in room PCU 3015. I have received report from TAMI Thomas and had the opportunity to ask questions and assume patient care. Patient asleep in bed and in no acute distress.
[2020-10-25 07:00] VITALS: BP 118/69
[2020-10-25] MEDS: K and/or MAG REPLACEMENT MC SCH (08:00)
[2020-10-25] MEDS: pantoprazole 40mg Tablet.DR PO SCH (08:25)
[2020-10-25] MEDS: ferrous sulfate 325mg tablet PO SCH (08:26)
[2020-10-25] MEDS: lactobacillus rhamnosus 10,000 MMU CELLS/CAPSULE PO SCH (08:26)
[2020-10-25] MEDS: docusate sod 100mg capsule PO SCH (08:26)
[2020-10-25 08:27] VITALS: BP_SYST 118
[2020-10-25] MEDS: oxyCODONE/APAP 10/325mg tablet PO PRN (08:27)
[2020-10-25] MEDS: lisinopril 20mg tablet PO SCH (08:27)
[2020-10-25] MEDS: gabapentin 400mg capsule PO SCH (08:28)
[2020-10-25] MEDS: ascorbic acid 500mg tablet PO SCH (08:28)
[2020-10-25] MEDS: heparin, porcine 5000 units/ml vial SQ SCH (08:29)
--- NOTE | 2020-10-25 08:55 | NUR ---
Gave an update to [facility] TAMI Jin who will be receiving patient when transport is available.
--- NOTE | 2020-10-25 11:12 | NUR ---
Patient stable for transfer per MD orders. All instructions reviewed and questions answered appropriately. Belongings collected and sent with patient. Transfer packet sent with patient. Patient's right upper midline and right wrist left in place for the facility. Left arm dressing was replaced before transport. tobacco sorter discontinued. Patient left via [facility]. Patient ambulated from bed into the wheelchair and left via [facility] and was wheeled down by [facility] staff.
== END 2020-10-25 11:12 | DRG 907 ==
LOC: ER 03:45 → ED HOLD 06:02 → PCU 3S 13:50 → PACU 10-19 20:26 → PCU 3S 10-19 21:29
PROVIDERS: ADMIT Family Medicine; ATTEND Internal Medicine
PROC: 3E0T3BZ Introduction of Anesthetic Agent into Peripheral Nerves and Plexi, Percutaneous Approach (ICD-10-PCS; 2020-10-19)
PROC: 0PSG04Z Reposition Left Humeral Shaft with Internal Fixation Device, Open Approach (ICD-10-PCS; principal; 2020-10-19 18:41)
DX: T40.2X1A Poisoning by other opioids, accidental (unintentional), initial encounter (principal); G92 Toxic encephalopathy; S42.302A Unspecified fracture of shaft of humerus, left arm, initial encounter for closed fracture; N17.9 Acute kidney failure, unspecified; E87.0 Hyperosmolality and hypernatremia; I50.32 Chronic diastolic (congestive) heart failure; B95.61 Methicillin susceptible Staphylococcus aureus infection as the cause of diseases classified elsewhere; Z20.822 Contact with and (suspected) exposure to COVID-19; I25.10 Atherosclerotic heart disease of native coronary artery without angina pectoris; I11.0 Hypertensive heart disease with heart failure; Z90.710 Acquired absence of both cervix and uterus; M19.90 Unspecified osteoarthritis, unspecified site; E86.0 Dehydration; Z86.73 Personal history of transient ischemic attack (TIA), and cerebral infarction without residual deficits; E87.6 Hypokalemia; D64.9 Anemia, unspecified; X58.XXXA Exposure to other specified factors, initial encounter; Y93.89 Activity, other specified; Y92.89 Other specified places as the place of occurrence of the external cause; Y99.8 Other external cause status
CPT/HCPCS: 36415; 70450; 71045; 71250; 73060; 74176; 76000; 76937; 80048; 80053; 80061; 80202; 80305; 80320; 81003; 82140; 82948; 83540; 83550; 83605; 83735; 83880; 84484; 85025; 85027; 85610; 85730; 86885; 86900; 86901; 87040; 87077; 87081; 87186; 87635; 93005; 96374; 97110; 97116; 97161; 97530; 99285; A4565; A4618; A6222; A6449; A7000; C1713; C9290; G0378; J0360; J0690; J1170; J1644; J2250; J2270; J2310; J2405; J2704; J3010; J3370; J3490; J7030; J7120

== ENCOUNTER 2021-11-06 02:44 | Emergency (ER) | payer MEDICARE, OTHER ==
[~2021-11-06] VITALS: Ht 152.4 cm; Wt 63.6 kg
[~2021-11-06 02:44] MED LIST changes: -BUPR1PAT3; -DULO60CA65 PO; -HYDR-3927 PO; -HYDR-3972 PO; -LIDO700A32 TOP; +LISI20TA PO; -LISI20TA28 PO; -QUET50TA22 PO; +QUET50TA24 PO; -TIZA4TAB5 PO
[2021-11-06] MEDS ORDERED: morphine 4 MG/ML inj SYRINge IV ONE ×2 (03:05→03:35)
[2021-11-06] MEDS ORDERED: ondansetron/PF 4mg/2ml inj IV ONE ×2 (03:05→03:35)
[2021-11-06] MEDS ORDERED: HYDROcodone/acetaminophen 10/325mg tab PO ONE (03:15)
[2021-11-06] MEDS ORDERED: ondansetron 4mg rapidly disintigrating tab PO ONE (03:15)
[2021-11-06 03:30] LABS: BASOPHILS % (AUTO) 0.7 % (0-1); EOSINOPHILS # (AUTO) 0.3 X10'3 (0-0.9); EOSINOPHILS % (AUTO) 4.2 % (0-6); HEMATOCRIT 33.2 % (35.0-45.0); HEMOGLOBIN 11.5 g/dl (12.0-16.0); LYMPHOCYTES # (AUTO) 1.8 X10'3 (1.1-4.8); LYMPHOCYTES % (AUTO) 29.2 % (21-51); MEAN CORPUSCULAR HEMOGLOBIN 30.7 PG (27.0-31.0); MEAN CORPUSCULAR HGB CONC 34.6 g/dL (33.0-36.5); MEAN CORPUSCULAR VOLUME 88.6 FL (78-98); MEAN PLATELET VOLUME 7.2 FL (7.4-10.4); MONOCYTES # (AUTO) 0.4 X10'3 (0-0.9); MONOCYTES % (AUTO) 6.2 % (2-12); NEUTROPHILS # (AUTO) 3.6 X10'3 (1.8-7.7); NEUTROPHILS % (AUTO) 59.7 % (42-75); PLATELET COUNT 340 X10'3 (140-440); RED BLOOD COUNT 3.74 X10'6 (4.20-5.60); RED CELL DISTRIBUTION WIDTH 14.7 % (11.5-14.5)
[2021-11-06 03:36] LABS: ALANINE AMINOTRANSFERASE 16 U/L (12-78); ALBUMIN 3.4 G/DL (3.4-5.0); ALBUMIN/GLOBULIN RATIO 0.9 (1.1-1.5); ALKALINE PHOSPHATASE 135 IU/L (46-116); ANION GAP 12 (8-16); ASPARTATE AMINO TRANSFERASE 16 U/L (10-37); BILIRUBIN,TOTAL 0.2 MG/DL (0.1-1.0); BLOOD UREA NITROGEN 27 MG/DL (7-18); BUN/CREATININE RATIO 19.7 (6.6-38.0); CALCIUM 8.7 MG/DL (8.5-10.1); CHLORIDE 110 MMOL/L (99-107); CREATININE 1.37 MG/DL (0.40-0.90); GLUCOSE 101 MG/DL (70-104); POTASSIUM 3.5 MMOL/L (3.5-5.1); SODIUM 143 MMOL/L (135-145); TOTAL CARBON DIOXIDE 21.5 MMOL/L (24-32); TOTAL PROTEIN 7.3 G/DL (6.4-8.2); eGFR 37 ML/MIN
[2021-11-06 04:36] VITALS: BP 187/91
[2021-11-06] MEDS ORDERED: HYDR-3965 PO ×2 (05:21→05:25)
== END 2021-11-06 06:42 | disposition home or self-care (01) ==
LOC: ER 02:45
DX: M1A.9XX1 Chronic gout, unspecified, with tophus (tophi) (principal); M79.672 Pain in left foot; R51.9 Headache, unspecified; I25.10 Atherosclerotic heart disease of native coronary artery without angina pectoris; I10 Essential (primary) hypertension; M19.90 Unspecified osteoarthritis, unspecified site; G89.29 Other chronic pain; Z86.73 Personal history of transient ischemic attack (TIA), and cerebral infarction without residual deficits; Z86.69 Personal history of other diseases of the nervous system and sense organs; Z90.49 Acquired absence of other specified parts of digestive tract; Z90.710 Acquired absence of both cervix and uterus; Z98.890 Other specified postprocedural states; Z88.1 Allergy status to other antibiotic agents; Z79.899 Other long term (current) drug therapy
CPT/HCPCS: 36415; 73610; 73630; 80053; 85025; 96374; 96375; 99284; J2270; J2405

== ENCOUNTER 2021-12-05 11:57 | Emergency (ER) | payer MEDICARE, OTHER ==
[~2021-12-05] VITALS: Ht 152.4 cm; Wt 46.8 kg
[~2021-12-05 11:57] MED LIST changes: +HYDR-3965 PO
[2021-12-05 12:38] VITALS: BP 156/85
[2021-12-05] MEDS ORDERED: indomethacin 25mg capsule PO ONE (14:20)
[2021-12-05] MEDS ORDERED: INDO50CA96 PO ×3 (14:31→16:06)
== END 2021-12-05 16:18 | disposition home or self-care (01) ==
LOC: ER 11:59
DX: M10.9 Gout, unspecified (principal); I25.10 Atherosclerotic heart disease of native coronary artery without angina pectoris; I11.9 Hypertensive heart disease without heart failure; G89.29 Other chronic pain; M54.9 Dorsalgia, unspecified; Z88.1 Allergy status to other antibiotic agents; Z79.899 Other long term (current) drug therapy
CPT/HCPCS: 99283

== ENCOUNTER 2023-01-07 17:15 | Emergency (ER) | payer MEDICARE, OTHER ==
[~2023-01-07] VITALS: Ht 152.4 cm; Wt 62.0 kg
[~2023-01-07 17:15] MED LIST changes: +CHOL20003 PO; +DOCU-391 PO; +HYDR-3927 PO; -HYDR-3965 PO; +LIDO700A47 TOP; -LISI20TA PO; +PANT40TA54 PO
[2023-01-07 18:48] LABS: BASOPHILS % (AUTO) 0.6 % (0-1); EOSINOPHILS # (AUTO) 0.1 X10'3 (0-0.9); EOSINOPHILS % (AUTO) 1.2 % (0-6); HEMATOCRIT 33.5 % (35.0-45.0); HEMOGLOBIN 10.9 g/dl (12.0-16.0); LYMPHOCYTES # (AUTO) 0.9 X10'3 (1.1-4.8); LYMPHOCYTES % (AUTO) 11.8 % (21-51); MEAN CORPUSCULAR HEMOGLOBIN 29.5 PG (27.0-31.0); MEAN CORPUSCULAR HGB CONC 32.5 g/dL (33.0-36.5); MEAN CORPUSCULAR VOLUME 90.8 FL (78-98); MEAN PLATELET VOLUME 7.2 FL (7.4-10.4); MONOCYTES # (AUTO) 0.4 X10'3 (0-0.9); MONOCYTES % (AUTO) 5.3 % (2-12); NEUTROPHILS % (AUTO) 81.1 % (42-75); PLATELET COUNT 463 X10'3 (140-440); RED BLOOD COUNT 3.69 X10'6 (4.20-5.60); RED CELL DISTRIBUTION WIDTH 16.4 % (11.5-14.5); WHITE BLOOD COUNT 7.5 X10'3 (4.5-11.0)
[2023-01-07 19:05] LABS: ALANINE AMINOTRANSFERASE 15 U/L (12-78); ALBUMIN 3.7 G/DL (3.4-5.0); ALBUMIN/GLOBULIN RATIO 0.7 (1.1-1.5); ALKALINE PHOSPHATASE 91 IU/L (46-116); AMYLASE 86 U/L (25-115); ANION GAP 16 (8-16); ASPARTATE AMINO TRANSFERASE 12 U/L (10-37); BILIRUBIN,TOTAL 0.3 MG/DL (0.1-1.0); BLOOD UREA NITROGEN 37 MG/DL (7-18); BUN/CREATININE RATIO 18.7 (10.0-20.0); CALCIUM 9.7 MG/DL (8.5-10.1); CHLORIDE 106 MMOL/L (99-107); CREATININE 1.98 MG/DL (0.40-0.90); GLUCOSE 88 MG/DL (70-104); LIPASE 99 U/L (73-393); POTASSIUM 5.8 MMOL/L (3.5-5.1); SODIUM 140 MMOL/L (135-145); TOTAL CARBON DIOXIDE 18.1 MMOL/L (24-32); TOTAL PROTEIN 8.9 G/DL (6.4-8.2); eGFR 24 ML/MIN
[2023-01-07 20:38] LABS: CLARITY,URINE SLIGHTLY CLOUDY (Clear); COLOR,URINE YELLOW (Yellow); GLUCOSE, URINE NEGATIVE (Neg); KETONES,URINE TRACE mg/dl (Neg); LEUKOCYTE ESTERASE ,URINE NEGATIVE (Neg); NITRITES, URINE NEGATIVE (Neg); OCCULT BLOOD,URINE NEGATIVE (Neg); PH,URINE 5.5 (4.8-8.0); PROTEIN,URINE TRACE mg/dl (Neg)
[2023-01-07] MEDS ORDERED: metoclopramide 5 mg/ml inj IV ONE (20:45)
[2023-01-07] MEDS ORDERED: normal saline 1000ML IV soln IVB ONE (20:45)
[2023-01-07 20:47] LABS: UA COLLECTION TYPE CLN CATCH MIDSTREAM
[2023-01-07 20:54] LABS: SQUAMOUS EPITHELIAL CELL,UR MODERATE /LPF (FEW)
[2023-01-07 20:55] LABS: COARSE GRANULAR CAST 0-3 /LPF (NEGATIVE); HYALINE CASTS >30 /LPF (NEGATIVE); MUCUS STRANDS FEW /LPF (Neg)
[2023-01-07 20:56] LABS: RBC,URINE 0-2 /HPF (0-2); WBC,URINE 0-4 /HPF (0-4)
[2023-01-07 20:57] LABS: AMORPHOUS URATES 1+; BACTERIA,URINE 1+ /HPF (Neg); TRANSITIONAL EPI CELLS,URINE MODERATE /HPF
[2023-01-07] MEDS ORDERED: METO5TAB85 PO (21:51)
[2023-01-07 22:53] VITALS: BP 136/65
--- NOTE | 2023-01-08 00:45 | NUR ---
IV DC'D PT BEING DISCHARGED DRESSING APPLIED
== END 2023-01-08 00:20 | disposition home or self-care (01) ==
LOC: ER 17:15
DX: R11.2 Nausea with vomiting, unspecified (principal); I10 Essential (primary) hypertension; M19.90 Unspecified osteoarthritis, unspecified site; Z88.1 Allergy status to other antibiotic agents; Z90.49 Acquired absence of other specified parts of digestive tract; Z90.710 Acquired absence of both cervix and uterus
CPT/HCPCS: 36415; 80053; 81001; 82150; 83690; 85025; 96361; 96374; 99283; J2765; J7030

== ENCOUNTER 2023-01-25 04:35 | Emergency (ER) | payer MEDICARE, OTHER ==
[~2023-01-25] VITALS: Ht 152.4 cm; Wt 61.4 kg
[~2023-01-25 04:35] MED LIST changes: +METO5TAB85 PO
[2023-01-25] MEDS ORDERED: ketorolac tromethamine 15mg/ml inj. IV ONE (04:45)
[2023-01-25] MEDS ORDERED: morphine 4 MG/ML inj SYRINge IV ONE (04:45)
[2023-01-25] MEDS ORDERED: normal saline 1000ML IV soln IVB ONE (04:45)
[2023-01-25] MEDS ORDERED: acetaminophen 325mg tablet PO ONE (04:45)
[2023-01-25 05:38] LABS: BASOPHILS # (AUTO) 0.1 X10'3 (0-0.2); BASOPHILS % (AUTO) 0.9 % (0-1); EOSINOPHILS # (AUTO) 0.2 X10'3 (0-0.9); EOSINOPHILS % (AUTO) 4.4 % (0-6); HEMATOCRIT 27.4 % (35.0-45.0); LYMPHOCYTES # (AUTO) 1.1 X10'3 (1.1-4.8); LYMPHOCYTES % (AUTO) 19.7 % (21-51); MEAN CORPUSCULAR HEMOGLOBIN 30.2 PG (27.0-31.0); MEAN CORPUSCULAR VOLUME 91.4 FL (78-98); MEAN PLATELET VOLUME 7.3 FL (7.4-10.4); MONOCYTES # (AUTO) 0.4 X10'3 (0-0.9); MONOCYTES % (AUTO) 7.2 % (2-12); NEUTROPHILS # (AUTO) 3.7 X10'3 (1.8-7.7); NEUTROPHILS % (AUTO) 67.8 % (42-75); PLATELET COUNT 434 X10'3 (140-440); RED BLOOD COUNT 2.99 X10'6 (4.20-5.60); RED CELL DISTRIBUTION WIDTH 16.9 % (11.5-14.5); WHITE BLOOD COUNT 5.5 X10'3 (4.5-11.0)
[2023-01-25 05:54] LABS: ALANINE AMINOTRANSFERASE 17 U/L (12-78); ALBUMIN 3.1 G/DL (3.4-5.0); ALBUMIN/GLOBULIN RATIO 0.7 (1.1-1.5); ALKALINE PHOSPHATASE 90 IU/L (46-116); ANION GAP 13 (8-16); ASPARTATE AMINO TRANSFERASE 21 U/L (10-37); BILIRUBIN,TOTAL 0.2 MG/DL (0.1-1.0); BLOOD UREA NITROGEN 22 MG/DL (7-18); BUN/CREATININE RATIO 14.6 (10.0-20.0); CALCIUM 9.3 MG/DL (8.5-10.1); CHLORIDE 108 MMOL/L (99-107); CREATININE 1.51 MG/DL (0.40-0.90); GLUCOSE 136 MG/DL (70-104); POTASSIUM 3.8 MMOL/L (3.5-5.1); SODIUM 141 MMOL/L (135-145); TOTAL CARBON DIOXIDE 20.4 MMOL/L (24-32); TOTAL PROTEIN 7.7 G/DL (6.4-8.2); eGFR 33 ML/MIN
[2023-01-25 06:00] LABS: LIPASE < 50 U/L (73-393)
[2023-01-25 06:03] VITALS: BP 178/78
== END 2023-01-25 06:22 | disposition home or self-care (01) ==
LOC: ER 04:36
DX: D53.9 Nutritional anemia, unspecified (principal); R51.9 Headache, unspecified; F41.9 Anxiety disorder, unspecified; I25.10 Atherosclerotic heart disease of native coronary artery without angina pectoris; I10 Essential (primary) hypertension; M19.90 Unspecified osteoarthritis, unspecified site; G89.29 Other chronic pain; I25.2 Old myocardial infarction; Z86.73 Personal history of transient ischemic attack (TIA), and cerebral infarction without residual deficits; Z90.49 Acquired absence of other specified parts of digestive tract; Z90.710 Acquired absence of both cervix and uterus; Z88.1 Allergy status to other antibiotic agents; Z88.8 Allergy status to other drugs, medicaments and biological substances; Z79.899 Other long term (current) drug therapy
CPT/HCPCS: 36415; 71045; 80053; 83690; 83735; 83880; 84484; 85025; 93005; 96361; 96374; 96375; 99285; J1885; J2270; J7030

== ENCOUNTER 2023-01-28 01:26 | Emergency (ER) | payer MEDICARE, MEDICAID ==
[~2023-01-28] VITALS: Ht 152.4 cm; Wt 61.4 kg
[2023-01-28 02:35] LABS: BASOPHILS % (AUTO) 0.7 % (0-1); EOSINOPHILS # (AUTO) 0.2 X10'3 (0-0.9); EOSINOPHILS % (AUTO) 4.2 % (0-6); HEMATOCRIT 28.9 % (35.0-45.0); HEMOGLOBIN 9.3 g/dl (12.0-16.0); LYMPHOCYTES # (AUTO) 0.9 X10'3 (1.1-4.8); LYMPHOCYTES % (AUTO) 16.1 % (21-51); MEAN CORPUSCULAR HEMOGLOBIN 29.8 PG (27.0-31.0); MEAN CORPUSCULAR HGB CONC 32.3 g/dL (33.0-36.5); MEAN CORPUSCULAR VOLUME 92.3 FL (78-98); MEAN PLATELET VOLUME 6.7 FL (7.4-10.4); MONOCYTES # (AUTO) 0.3 X10'3 (0-0.9); MONOCYTES % (AUTO) 5.6 % (2-12); NEUTROPHILS # (AUTO) 3.9 X10'3 (1.8-7.7); NEUTROPHILS % (AUTO) 73.4 % (42-75); PLATELET COUNT 549 X10'3 (140-440); RED BLOOD COUNT 3.13 X10'6 (4.20-5.60); RED CELL DISTRIBUTION WIDTH 16.9 % (11.5-14.5); WHITE BLOOD COUNT 5.3 X10'3 (4.5-11.0)
[2023-01-28 02:45] LABS: ALANINE AMINOTRANSFERASE 17 U/L (12-78); ALBUMIN 3.2 G/DL (3.4-5.0); ALBUMIN/GLOBULIN RATIO 0.6 (1.1-1.5); ALKALINE PHOSPHATASE 86 IU/L (46-116); ANION GAP 12 (8-16); ASPARTATE AMINO TRANSFERASE 17 U/L (10-37); BILIRUBIN,TOTAL 0.2 MG/DL (0.1-1.0); BLOOD UREA NITROGEN 18 MG/DL (7-18); BUN/CREATININE RATIO 11.8 (10.0-20.0); CALCIUM 9.5 MG/DL (8.5-10.1); CHLORIDE 110 MMOL/L (99-107); CREATININE 1.52 MG/DL (0.40-0.90); GLUCOSE 124 MG/DL (70-104); LIPASE 68 U/L (73-393); POTASSIUM 4.7 MMOL/L (3.5-5.1); SODIUM 143 MMOL/L (135-145); TOTAL PROTEIN 8.2 G/DL (6.4-8.2); eGFR 33 ML/MIN
[2023-01-28] MEDS ORDERED: acetaminophen 325mg tablet PO ONE (04:45)
[2023-01-28] MEDS ORDERED: bisacodyl 5mg tablet.DR PO ONE (04:45)
[2023-01-28] MEDS ORDERED: ondansetron 4mg rapidly disintigrating tab PO ONE (04:45)
[2023-01-28] MEDS ORDERED: BISA-78 PO (05:59)
[2023-01-28] MEDS ORDERED: POLY119P2 PO (05:59)
[2023-01-28 08:56] VITALS: BP 188/78
[2023-01-28 10:03] LABS: CLARITY,URINE CLEAR (Clear); COLOR,URINE STRAW (Yellow); GLUCOSE, URINE NEGATIVE (Neg); KETONES,URINE NEGATIVE (Neg); LEUKOCYTE ESTERASE ,URINE NEGATIVE (Neg); NITRITES, URINE NEGATIVE (Neg); OCCULT BLOOD,URINE NEGATIVE (Neg); PROTEIN,URINE NEGATIVE (Neg); UROBILINOGEN,URINE 0.2 E.U/dL (0.2-1.0)
[2023-01-28 10:05] LABS: UA COLLECTION TYPE VOIDED
--- NOTE | 2023-01-28 10:49 | NUR ---
Spoke to daughter Lisa per patient request. She would like to be notified once the MD has re-eval Pt. White phone number is [phone]
== END 2023-01-28 11:07 | disposition home or self-care (01) ==
LOC: ER 01:27
DX: R10.31 Right lower quadrant pain (principal); K59.00 Constipation, unspecified; R91.1 Solitary pulmonary nodule; I11.9 Hypertensive heart disease without heart failure; G89.29 Other chronic pain; M54.9 Dorsalgia, unspecified; F41.9 Anxiety disorder, unspecified; Z88.1 Allergy status to other antibiotic agents; Z79.899 Other long term (current) drug therapy; Z79.1 Long term (current) use of non-steroidal anti-inflammatories (NSAID); Z79.2 Long term (current) use of antibiotics
CPT/HCPCS: 36415; 74176; 80053; 81003; 83690; 85025; 99284

== ENCOUNTER 2023-03-09 10:42 | Emergency (ER) | payer OTHER ==
[~2023-03-09] VITALS: Ht 152.4 cm; Wt 58.6 kg
[~2023-03-09 10:42] MED LIST changes: +BISA-78 PO; +POLY119P2 PO
[2023-03-09 11:12] VITALS: BP 178/100; PULSE 76; RESP 18; TEMP 97.6; O2SAT 100
[2023-03-09] MEDS ORDERED: HYDR-3973 PO (12:37)
--- NOTE | 2023-03-09 12:59 | NUR ---
[facility] CALLED FOR PATIENT. EST TIME 1.5 HOURS.
[2023-03-10] MEDS ORDERED: DEC4T PO (15:28)
[2023-03-10] MEDS ORDERED: MELO-100 PO (15:28)
[2023-03-10] MEDS ORDERED: COLC0.6T72 PO (15:28)
== END 2023-03-09 13:00 | disposition home or self-care (01) ==
LOC: ER 10:42
DX: M79.672 Pain in left foot (principal); G89.29 Other chronic pain; I25.10 Atherosclerotic heart disease of native coronary artery without angina pectoris; I10 Essential (primary) hypertension; M19.90 Unspecified osteoarthritis, unspecified site; Z86.73 Personal history of transient ischemic attack (TIA), and cerebral infarction without residual deficits; Z90.49 Acquired absence of other specified parts of digestive tract; Z90.710 Acquired absence of both cervix and uterus; Z79.899 Other long term (current) drug therapy; Z88.1 Allergy status to other antibiotic agents
CPT/HCPCS: 99283; A4314

== ENCOUNTER 2023-03-10 11:19 | Emergency (ER) | payer OTHER ==
[~2023-03-10] VITALS: Ht 152.4 cm; Wt 58.6 kg
[2023-03-10 11:34] VITALS: TEMP 98.2
[2023-03-10 14:23] LABS: BASOPHILS % (AUTO) 0.6 % (0-1); EOSINOPHILS # (AUTO) 0.1 X10'3 (0-0.9); EOSINOPHILS % (AUTO) 2.7 % (0-6); HEMATOCRIT 31.4 % (35.0-45.0); HEMOGLOBIN 10.3 g/dl (12.0-16.0); LYMPHOCYTES # (AUTO) 0.8 X10'3 (1.1-4.8); LYMPHOCYTES % (AUTO) 15.4 % (21-51); MEAN CORPUSCULAR HEMOGLOBIN 30.1 PG (27.0-31.0); MEAN CORPUSCULAR HGB CONC 32.7 g/dL (33.0-36.5); MEAN CORPUSCULAR VOLUME 92.1 FL (78-98); MEAN PLATELET VOLUME 7.4 FL (7.4-10.4); MONOCYTES # (AUTO) 0.2 X10'3 (0-0.9); MONOCYTES % (AUTO) 4.6 % (2-12); NEUTROPHILS % (AUTO) 76.7 % (42-75); PLATELET COUNT 314 X10'3 (140-440); RED BLOOD COUNT 3.41 X10'6 (4.20-5.60); RED CELL DISTRIBUTION WIDTH 15.3 % (11.5-14.5); WHITE BLOOD COUNT 5.2 X10'3 (4.5-11.0)
[2023-03-10] MEDS ORDERED: HYDROcodone/acetaminophen 10/325mg tab PO ONE (14:25)
[2023-03-10 14:36] LABS: ALANINE AMINOTRANSFERASE 7 U/L (12-78); ALBUMIN 3.5 G/DL (3.4-5.0); ALBUMIN/GLOBULIN RATIO 0.8 (1.1-1.5); ALKALINE PHOSPHATASE 97 IU/L (46-116); ANION GAP 13 (8-16); ASPARTATE AMINO TRANSFERASE 13 U/L (10-37); BILIRUBIN,TOTAL 0.2 MG/DL (0.1-1.0); BLOOD UREA NITROGEN 20 MG/DL (7-18); BUN/CREATININE RATIO 14.2 (10.0-20.0); CALCIUM 9.3 MG/DL (8.5-10.1); CHLORIDE 110 MMOL/L (99-107); CREATININE 1.41 MG/DL (0.40-0.90); GLUCOSE 106 MG/DL (70-104); POTASSIUM 3.9 MMOL/L (3.5-5.1); SODIUM 143 MMOL/L (135-145); TOTAL CARBON DIOXIDE 20.3 MMOL/L (24-32); TOTAL PROTEIN 7.9 G/DL (6.4-8.2); eCRCL 24 ML/MIN; eGFR 36 ML/MIN
[2023-03-10 14:43] LABS: PRO BRAIN NATRIURETIC PEPTIDE 1379 PG/ML (0-450)
[2023-03-10 15:06] LABS: URIC ACID 6.1 MG/DL (2.5-6.2)
[2023-03-10] MEDS ORDERED: dexamethasone sod phosphate 10mg/ml inj PO STA (15:10)
[2023-03-10] MEDS ORDERED: colchicine 0.6mg tablet PO ONE (15:10)
[2023-03-10] MEDS ORDERED: ketorolac tromethamine 15mg/ml inj. IM ONE (15:15)
[2023-03-10] MEDS ORDERED: ketorolac trometh inj. 60 MG/2 ML VIAL IM ONE (15:15)
[2023-03-10] MEDS ORDERED: COLC0.6T72 PO (15:28)
[2023-03-10] MEDS ORDERED: MELO-100 PO (15:28)
[2023-03-10] MEDS ORDERED: DEC4T PO (15:28)
[2023-03-10 15:50] VITALS: BP 207/107; PULSE 89; RESP 16; O2SAT 98
== END 2023-03-10 16:06 | disposition home or self-care (01) ==
LOC: ER 11:20
DX: M79.672 Pain in left foot (principal); I25.10 Atherosclerotic heart disease of native coronary artery without angina pectoris; I10 Essential (primary) hypertension; M19.90 Unspecified osteoarthritis, unspecified site; G89.29 Other chronic pain; Z90.710 Acquired absence of both cervix and uterus; Z90.49 Acquired absence of other specified parts of digestive tract; Z98.890 Other specified postprocedural states; Z79.899 Other long term (current) drug therapy; Z88.1 Allergy status to other antibiotic agents
CPT/HCPCS: 36415; 71045; 80053; 83880; 84484; 84550; 85025; 96372; 99284; J1100; J1885

== ENCOUNTER 2023-10-19 08:31 | Emergency (ER) | payer OTHER ==
[~2023-10-19] VITALS: Ht 152.4 cm; Wt 60.0 kg
[~2023-10-19 08:31] MED LIST changes: +COLC0.6T72 PO; +MELO-100 PO
[2023-10-19 09:19] VITALS: TEMP 97.8
[2023-10-19 09:54] LABS: BILIRUBIN,URINE NEGATIVE (Neg); CLARITY,URINE CLEAR (Clear); COLOR,URINE YELLOW (Yellow); GLUCOSE, URINE NEGATIVE (Neg); KETONES,URINE 15 mg/dl (Neg); LEUKOCYTE ESTERASE ,URINE NEGATIVE (Neg); NITRITES, URINE NEGATIVE (Neg); OCCULT BLOOD,URINE NEGATIVE (Neg); PH,URINE 5.5 (4.8-8.0); PROTEIN,URINE NEGATIVE (Neg); UROBILINOGEN,URINE 0.2 E.U/dL (0.2-1.0)
[2023-10-19 10:02] LABS: UA COLLECTION TYPE NON-SPECIFIED
[2023-10-19 10:55] LABS: BASOPHILS % (AUTO) 0.5 % (0-1); EOSINOPHILS # (AUTO) 0.1 X10'3 (0-0.9); EOSINOPHILS % (AUTO) 0.8 % (0-6); HEMATOCRIT 36.1 % (35.0-45.0); HEMOGLOBIN 12.1 g/dl (12.0-16.0); LYMPHOCYTES # (AUTO) 0.7 X10'3 (1.1-4.8); LYMPHOCYTES % (AUTO) 10.6 % (21-51); MEAN CORPUSCULAR HEMOGLOBIN 31.4 PG (27.0-31.0); MEAN CORPUSCULAR HGB CONC 33.6 g/dL (33.0-36.5); MEAN CORPUSCULAR VOLUME 93.4 FL (78-98); MEAN PLATELET VOLUME 8.1 FL (7.4-10.4); MONOCYTES # (AUTO) 0.4 X10'3 (0-0.9); MONOCYTES % (AUTO) 5.4 % (2-12); NEUTROPHILS # (AUTO) 5.7 X10'3 (1.8-7.7); NEUTROPHILS % (AUTO) 82.7 % (42-75); PLATELET COUNT 324 X10'3 (140-440); RED BLOOD COUNT 3.86 X10'6 (4.20-5.60); RED CELL DISTRIBUTION WIDTH 13.5 % (11.5-14.5); WHITE BLOOD COUNT 6.9 X10'3 (4.5-11.0)
[2023-10-19 10:59] LABS: ALBUMIN 3.5 G/DL (3.4-5.0); ANION GAP 11 (8-16); BLOOD UREA NITROGEN 24 MG/DL (7-18); BUN/CREATININE RATIO 17.9 (10.0-20.0); CALCIUM 9.8 MG/DL (8.5-10.1); CHLORIDE 106 MMOL/L (99-107); CREATININE 1.34 MG/DL (0.40-0.90); GLUCOSE 95 MG/DL (70-104); LIPASE 28 U/L (16-77); POTASSIUM 4.8 MMOL/L (3.5-5.1); SODIUM 140 MMOL/L (135-145); TOTAL CARBON DIOXIDE 22.7 MMOL/L (24-32); eCRCL 24 ML/MIN; eGFR 38 ML/MIN
[2023-10-19] MEDS: normal saline 1000ML IV soln IVB ONE (11:07)
[2023-10-19] MEDS: ondansetron/PF 4mg/2ml inj IV ONE (11:07)
[2023-10-19] MEDS ORDERED: ONDA4TAB12 PO (11:11)
[2023-10-19 11:31] VITALS: BP 165/74; PULSE 64; RESP 16; O2SAT 100
== END 2023-10-19 12:07 | disposition home or self-care (01) ==
LOC: ER 08:31
DX: A08.4 Viral intestinal infection, unspecified (principal); Z20.822 Contact with and (suspected) exposure to COVID-19; E86.0 Dehydration; R10.13 Epigastric pain; R10.30 Lower abdominal pain, unspecified; I25.10 Atherosclerotic heart disease of native coronary artery without angina pectoris; M19.90 Unspecified osteoarthritis, unspecified site; G89.29 Other chronic pain; Z90.710 Acquired absence of both cervix and uterus; Z90.49 Acquired absence of other specified parts of digestive tract; Z86.73 Personal history of transient ischemic attack (TIA), and cerebral infarction without residual deficits; Z88.1 Allergy status to other antibiotic agents; Z79.899 Other long term (current) drug therapy
CPT/HCPCS: 36415; 74176; 80048; 81003; 83690; 85025; 87502; 87503; 87811; 96361; 96374; 99285; J2405; J7030

== ENCOUNTER 2023-11-27 05:33 | Emergency (ER) | payer MEDICARE, MEDICAID ==
[~2023-11-27] VITALS: Ht 152.4 cm; Wt 55.9 kg
[~2023-11-27 05:33] MED LIST changes: +LIDO700A32 TOP; +ONDA4TAB12 PO
[2023-11-27 06:48] VITALS: TEMP 97.7
[2023-11-27] MEDS: HYDROmorphone 1 mg/ml syringe IM ONE (07:01)
[2023-11-27 07:36] LABS: BASOPHILS % (AUTO) 0.1 % (0-1); EOSINOPHILS % (AUTO) 0 % (0-6); HEMATOCRIT 33.6 % (35.0-45.0); HEMOGLOBIN 11.2 g/dl (12.0-16.0); LYMPHOCYTES # (AUTO) 0.2 X10'3 (1.1-4.8); LYMPHOCYTES % (AUTO) 4.1 % (21-51); MEAN CORPUSCULAR HEMOGLOBIN 31.6 PG (27.0-31.0); MEAN CORPUSCULAR HGB CONC 33.4 g/dL (33.0-36.5); MEAN CORPUSCULAR VOLUME 94.5 FL (78-98); MONOCYTES % (AUTO) 0.5 % (2-12); NEUTROPHILS # (AUTO) 4.6 X10'3 (1.8-7.7); NEUTROPHILS % (AUTO) 95.3 % (42-75); PLATELET COUNT 231 X10'3 (140-440); RED BLOOD COUNT 3.56 X10'6 (4.20-5.60); RED CELL DISTRIBUTION WIDTH 14.1 % (11.5-14.5); WHITE BLOOD COUNT 4.9 X10'3 (4.5-11.0)
[2023-11-27 07:46] LABS: PROTHROMBIN TIME 10.3 SECONDS (9.0-12.0)
[2023-11-27 07:50] LABS: ALANINE AMINOTRANSFERASE 14 U/L (12-78); ALBUMIN 3.3 G/DL (3.4-5.0); ALBUMIN/GLOBULIN RATIO 0.8 (1.1-1.5); ALKALINE PHOSPHATASE 124 IU/L (46-116); ANION GAP 11 (8-16); ASPARTATE AMINO TRANSFERASE 9 U/L (10-37); BILIRUBIN,TOTAL 0.2 MG/DL (0.1-1.0); BLOOD UREA NITROGEN 39 MG/DL (7-18); BUN/CREATININE RATIO 21.8 (10.0-20.0); CALCIUM 9.3 MG/DL (8.5-10.1); CHLORIDE 111 MMOL/L (99-107); CREATININE 1.79 MG/DL (0.40-0.90); GLUCOSE 354 MG/DL (70-104); POTASSIUM 4.8 MMOL/L (3.5-5.1); SODIUM 142 MMOL/L (135-145); TOTAL PROTEIN 7.4 G/DL (6.4-8.2); eCRCL 18 ML/MIN; eGFR 27 ML/MIN
[2023-11-27] MEDS: lisinopril 10 MG tablet PO ONE (08:58)
[2023-11-27] MEDS ORDERED: ACET-1008 PO (09:52)
[2023-11-27 10:16] VITALS: BP 201/86; PULSE 93; RESP 18; O2SAT 100
== END 2023-11-27 10:21 | disposition home or self-care (01) ==
LOC: ER 05:34
DX: M75.101 Unspecified rotator cuff tear or rupture of right shoulder, not specified as traumatic (principal); I10 Essential (primary) hypertension; Z88.1 Allergy status to other antibiotic agents
CPT/HCPCS: 36415; 80053; 85025; 85610; 96372; 99283; J1170

== ENCOUNTER 2024-01-18 08:03 | Emergency (ER) | payer OTHER ==
[~2024-01-18] VITALS: Ht 152.4 cm; Wt 55.8 kg
[~2024-01-18 08:03] MED LIST changes: +ACET-1008 PO; +ONDA-243 PO; -ONDA4TAB12 PO
[2024-01-18] MEDS ORDERED: LIDOcaine 1% W/epiNEPHrine 1:100,000 20ml vial SQ ONE (08:50)
[2024-01-18] MEDS: LIDOcaine 1% W/epiNEPHrine 1:100,000 20ml vial IJ ONE (09:09)
[2024-01-18 09:41] VITALS: BP 134/85; PULSE 68; RESP 14; TEMP 98.2; O2SAT 98
== END 2024-01-18 09:43 | disposition home or self-care (01) ==
LOC: ER 08:03
DX: S01.81XA Laceration without foreign body of other part of head, initial encounter (principal); Z88.1 Allergy status to other antibiotic agents; Z79.1 Long term (current) use of non-steroidal anti-inflammatories (NSAID); Z79.899 Other long term (current) drug therapy; Z79.2 Long term (current) use of antibiotics; W19.XXXA Unspecified fall, initial encounter; Y93.89 Activity, other specified; Y92.89 Other specified places as the place of occurrence of the external cause; Y99.8 Other external cause status
CPT/HCPCS: 12011; 99283; J3490

== ENCOUNTER 2024-04-09 06:26 | Emergency (ER) | payer OTHER ==
[~2024-04-09] VITALS: Ht 152.4 cm; Wt 54.5 kg
[2024-04-09] MEDS: HYDROcodone/acetaminophen 10/325mg tab PO ONE (07:53)
[2024-04-09] MEDS ORDERED: HYDR-3973 PO (08:13)
[2024-04-09 08:37] VITALS: BP 112/63; PULSE 79; RESP 16; TEMP 97.7; O2SAT 99
== END 2024-04-09 08:38 | disposition home or self-care (01) ==
LOC: ER 06:26
DX: M25.511 Pain in right shoulder (principal); I25.10 Atherosclerotic heart disease of native coronary artery without angina pectoris; I10 Essential (primary) hypertension; M19.90 Unspecified osteoarthritis, unspecified site; R06.02 Shortness of breath; Z88.1 Allergy status to other antibiotic agents; Z79.899 Other long term (current) drug therapy; Z79.1 Long term (current) use of non-steroidal anti-inflammatories (NSAID); Z90.49 Acquired absence of other specified parts of digestive tract; Z90.710 Acquired absence of both cervix and uterus
CPT/HCPCS: 29105; 73030; 99284; A4565

== ENCOUNTER 2024-06-01 02:26 | Emergency (ER) | payer MEDICARE, OTHER ==
[~2024-06-01] VITALS: Ht 121.9 cm; Wt 53.2 kg
[2024-06-01] MEDS: HYDROcodone/acetaminophen 5mg/325mg tablet PO ONE (04:09)
[2024-06-01 05:26] VITALS: BP 132/68; PULSE 87; RESP 14; TEMP 98.2; O2SAT 95
== END 2024-06-01 05:30 | disposition home or self-care (01) ==
LOC: ER 02:27
DX: M19.011 Primary osteoarthritis, right shoulder (principal); F41.9 Anxiety disorder, unspecified; I25.10 Atherosclerotic heart disease of native coronary artery without angina pectoris; I10 Essential (primary) hypertension; M19.90 Unspecified osteoarthritis, unspecified site; G89.29 Other chronic pain; M54.9 Dorsalgia, unspecified; Z88.1 Allergy status to other antibiotic agents; Z79.1 Long term (current) use of non-steroidal anti-inflammatories (NSAID); Z79.899 Other long term (current) drug therapy; Z86.73 Personal history of transient ischemic attack (TIA), and cerebral infarction without residual deficits; Z90.710 Acquired absence of both cervix and uterus; Z90.49 Acquired absence of other specified parts of digestive tract
CPT/HCPCS: 73030; 93005; 99283

== ENCOUNTER 2024-07-19 18:07 | Emergency (ER) | payer MEDICARE, OTHER ==
[~2024-07-19] VITALS: Ht 152.4 cm; Wt 57.0 kg
[2024-07-19] MEDS: normal saline 1000ML IV soln IVB ONE (19:00)
[2024-07-19 19:30] LABS: BASOPHILS % (AUTO) 0.7 % (0-1); EOSINOPHILS # (AUTO) 0.1 X10'3 (0-0.9); HEMATOCRIT 34.2 % (35.0-45.0); HEMOGLOBIN 11.6 g/dl (12.0-16.0); LYMPHOCYTES # (AUTO) 0.6 X10'3 (1.1-4.8); LYMPHOCYTES % (AUTO) 11.7 % (21-51); MEAN CORPUSCULAR HEMOGLOBIN 32.4 PG (27.0-31.0); MEAN CORPUSCULAR VOLUME 95.4 FL (78-98); MEAN PLATELET VOLUME 7.4 FL (7.4-10.4); MONOCYTES # (AUTO) 0.2 X10'3 (0-0.9); MONOCYTES % (AUTO) 4.4 % (2-12); NEUTROPHILS # (AUTO) 4.2 X10'3 (1.8-7.7); NEUTROPHILS % (AUTO) 82.2 % (42-75); PLATELET COUNT 301 X10'3 (140-440); RED BLOOD COUNT 3.58 X10'6 (4.20-5.60); RED CELL DISTRIBUTION WIDTH 14.3 % (11.5-14.5); WHITE BLOOD COUNT 5.1 X10'3 (4.5-11.0)
[2024-07-19 20:11] LABS: ALBUMIN 3.7 G/DL (3.4-5.0); ANION GAP 13 (8-16); BLOOD UREA NITROGEN 29 MG/DL (7-18); BUN/CREATININE RATIO 15.1 (10.0-20.0); CALCIUM 9.4 MG/DL (8.5-10.1); CHLORIDE 110 MMOL/L (99-107); CREATININE 1.92 MG/DL (0.40-0.90); GLUCOSE 125 MG/DL (70-104); LIPASE 56 U/L (16-77); POTASSIUM 4.6 MMOL/L (3.5-5.1); SODIUM 142 MMOL/L (135-145); TOTAL CARBON DIOXIDE 19.3 MMOL/L (24-32); eCRCL 17 ML/MIN; eGFR 25 ML/MIN
[2024-07-19] MEDS: aspirin 325mg tablet PO STA (21:20)
[2024-07-19] MEDS: mag hydrox/Alum hydrox/simeth 30ml oral suspension PO ONE (21:21)
[2024-07-19] MEDS: sucralfate 1 gm tablet PO STA (21:21)
[2024-07-19] MEDS: LIDOcaine 2% Viscous 15ml cup TP STA (21:21)
[2024-07-19 21:44] LABS: PRO BRAIN NATRIURETIC PEPTIDE 297 PG/ML (0-450)
[2024-07-19] MEDS: pantoprazole 40 MG vial IV STA (23:47)
[2024-07-19] MEDS: proCHLORperazine 10 MG/2 ml inj IV STA (23:47)
[2024-07-20] MEDS ORDERED: OMEP40CA21 PO (00:16)
[2024-07-20] MEDS ORDERED: SUCR1TAB PO (00:16)
[2024-07-20] MEDS: proCHLORperazine 10 MG/2 ml inj IV ONE (00:31)
[2024-07-20] MEDS: pantoprazole 40 MG vial IV ONE (00:32)
[2024-07-20 03:07] VITALS: BP 132/82; PULSE 78; RESP 18; O2SAT 100
== END 2024-07-20 03:10 | disposition left against medical advice (07) ==
LOC: ER 18:07
DX: I21.4 Non-ST elevation (NSTEMI) myocardial infarction (principal); K25.3 Acute gastric ulcer without hemorrhage or perforation; M19.90 Unspecified osteoarthritis, unspecified site; I25.10 Atherosclerotic heart disease of native coronary artery without angina pectoris; I10 Essential (primary) hypertension; F41.9 Anxiety disorder, unspecified; Z87.11 Personal history of peptic ulcer disease; Z86.73 Personal history of transient ischemic attack (TIA), and cerebral infarction without residual deficits; Z90.710 Acquired absence of both cervix and uterus; Z90.49 Acquired absence of other specified parts of digestive tract; Z88.6 Allergy status to analgesic agent
CPT/HCPCS: 36415; 71046; 74019; 74176; 80048; 83690; 83880; 84484; 85025; 93005; 96361; 96374; 96375; 99291; J0780; J2470; J7030

== ENCOUNTER 2024-07-20 03:01 | Inpatient (IN) | payer MEDICARE, OTHER ==
[~2024-07-20] VITALS: Ht 152.4 cm; Wt 51.5 kg
[2024-07-20] VITALS (18 sets, daily range): BP systolic 142–210; BP diastolic 60–100; PULSE 64–91; RESP 16–24; TEMP 97.6–98.5; O2SAT 96–100
[~2024-07-20 03:01] MED LIST changes: +OMEP40CA21 PO; +SUCR1TAB PO
[2024-07-20] MEDS: ketorolac trometh 30MG/ML vial 30 MG/ML VIAL IV ONE (04:24)
[2024-07-20] MEDS ORDERED: mag hydrox/Alum hydrox/simeth 30ml oral suspension PO PRN (05:20)
[2024-07-20] MEDS ORDERED: morphine 2 MG/ML inj. syringe IV PRN (05:20)
[2024-07-20] MEDS ORDERED: magnesium sulf-water 4G/100mL 100 ML IV PRN (05:20)
[2024-07-20] MEDS ORDERED: potassium Cl 20 mEq SR tablet PO PRN ×2 (05:20)
[2024-07-20] MEDS ORDERED: potassium Cl 40MEQ/1/2NS 520ml 520 ML IV PRN (05:20)
[2024-07-20] MEDS ORDERED: ondansetron/PF 4mg/2ml inj IV PRN (05:20)
[2024-07-20] MEDS ORDERED: acetaminophen 325mg tablet PO PRN (05:20)
[2024-07-20] MEDS ORDERED: magnesium Cl slow-release 64mg tablet PO PRN (05:20)
[2024-07-20] MEDS ORDERED: magnesium hydroxide 30ml (MOM) UD suspension PO PRN (05:20)
[2024-07-20] MEDS ORDERED: docusate sod 100mg capsule PO PRN (05:20)
[2024-07-20] MEDS ORDERED: magnesium sulf-water 2g/50mL 50 ML IV PRN (05:20)
[2024-07-20] MEDS ORDERED: nitroGLYCERIN 0.4mg SUBLingual tab SL PRN (05:25)
[2024-07-20] MEDS ORDERED: metoprolol tartrate 1mg/ml inj IV PRN (05:25)
[2024-07-20 05:29] LABS: BASOPHILS % (AUTO) 0.8 % (0-1); EOSINOPHILS # (AUTO) 0.1 X10'3 (0-0.9); EOSINOPHILS % (AUTO) 2.2 % (0-6); HEMATOCRIT 30.3 % (35.0-45.0); HEMOGLOBIN 10.2 g/dl (12.0-16.0); LYMPHOCYTES # (AUTO) 0.9 X10'3 (1.1-4.8); LYMPHOCYTES % (AUTO) 18.7 % (21-51); MEAN CORPUSCULAR HEMOGLOBIN 32.2 PG (27.0-31.0); MEAN CORPUSCULAR HGB CONC 33.7 g/dL (33.0-36.5); MEAN CORPUSCULAR VOLUME 95.3 FL (78-98); MEAN PLATELET VOLUME 7.3 FL (7.4-10.4); MONOCYTES # (AUTO) 0.3 X10'3 (0-0.9); MONOCYTES % (AUTO) 6.8 % (2-12); NEUTROPHILS # (AUTO) 3.5 X10'3 (1.8-7.7); NEUTROPHILS % (AUTO) 71.5 % (42-75); PLATELET COUNT 274 X10'3 (140-440); RED BLOOD COUNT 3.17 X10'6 (4.20-5.60); RED CELL DISTRIBUTION WIDTH 14.1 % (11.5-14.5); WHITE BLOOD COUNT 4.8 X10'3 (4.5-11.0)
[2024-07-20 05:45] LABS: ALANINE AMINOTRANSFERASE 12 U/L (12-78); ALBUMIN 3.4 G/DL (3.4-5.0); ALKALINE PHOSPHATASE 77 IU/L (46-116); ANION GAP 12 (8-16); ASPARTATE AMINO TRANSFERASE 14 U/L (10-37); BILIRUBIN,TOTAL 0.2 MG/DL (0.1-1.0); BLOOD UREA NITROGEN 29 MG/DL (7-18); BUN/CREATININE RATIO 10.7 (10.0-20.0); CALCIUM 8.7 MG/DL (8.5-10.1); CHLORIDE 114 MMOL/L (99-107); GLUCOSE 112 MG/DL (70-104); SODIUM 144 MMOL/L (135-145); TOTAL CARBON DIOXIDE 18.1 MMOL/L (24-32); TOTAL PROTEIN 6.8 G/DL (6.4-8.2); eCRCL 12 ML/MIN; eGFR 17 ML/MIN
[2024-07-20 05:55] LABS: MAGNESIUM 1.9 MG/DL (1.5-2.4); THYROID STIMULATING HORMONE 1.29 ulU/ml (0.34-4.50)
[2024-07-20] MEDS: pantoprazole 40 MG vial IV SCH (06:10)
[2024-07-20] MEDS: normal saline 1000ml 1,000 ML IV SCH ×2 (06:10→13:12)
[2024-07-20 06:21] LABS: HEMOGLOBIN A1C 5.6 % (4.5-6.2)
[2024-07-20] MEDS: morphine 2 MG/ML inj. syringe IV PRN (07:17)
[2024-07-20] MEDS: LIDOcaine 5% patch TP SCH (08:00)
[2024-07-20] MEDS: K and/or MAG REPLACEMENT MC SCH (08:00)
[2024-07-20] MEDS ORDERED: quetiapine 100mg tablet PO PRN (08:50)
[2024-07-20 09:17] LABS: LIPASE 69 U/L (16-77)
[2024-07-20] MEDS: lisinopril 10 MG tablet PO ONE (10:26)
[2024-07-20] MEDS: heparin, porcine 5000 units/ml vial SQ SCH (10:26)
[2024-07-20] MEDS: regadenoson 0.4mg/5ml syringe IV PRN (11:17)
[2024-07-20] MEDS: aminophylline 250mg/10ml inj. IV PRN (11:37)
[2024-07-20] MEDS ORDERED: aminophylline 500mg/20ml vial IV PRN (11:41)
[2024-07-20] MEDS: PERFLUTREN PROTEIN-A MICROSPHR (Optison) 0.22 MG/ML 3ML VIAL IV ONE (12:25)
[2024-07-20] MEDS: metoprolol succinate 25mg (24-HOUR) SR. Tablet PO SCH (13:11)
[2024-07-20] MEDS: amLODIPine 5mg tablet PO SCH (13:11)
[2024-07-20] MEDS: sucralfate 1 gm tablet PO SCH (13:11)
[2024-07-20] MEDS: gabapentin 300mg capsule PO SCH (13:11)
[2024-07-20 14:09] LABS: APTT 27 SECONDS (22-32); INR 1.1 INR; PROTHROMBIN TIME 11.2 SECONDS (9.0-12.0)
[2024-07-20 16:17] LABS: CHOL/HDL RATIO 1.8 (0.00-4.99); CHOLESTEROL 162 MG/DL (0-200); HDL CHOLESTEROL 89 MG/DL (35-60); LDL CHOLESTEROL 59 MG/DL (50-100); TRIGLYCERIDES 115 MG/DL (20-135)
[2024-07-20 18:04] LABS: CREATININE 2.88 MG/DL (0.40-0.90); SODIUM 146 MMOL/L (135-145); eCRCL 11 ML/MIN; eGFR 16 ML/MIN
[2024-07-20 18:33] LABS: OSMOLALITY 309 MOSM/K (280-300)
[2024-07-20] MEDS: aspirin 81mg, enteric-coated 1 TAB TABLET.DR PO SCH (19:21)
[2024-07-20] MEDS: atorvastatin 20mg tablet PO SCH (19:22)
[2024-07-20] MEDS: pantoprazole 40mg Tablet.DR PO SCH (19:23)
[2024-07-20] MEDS: Melatonin 3mg tablet PO ONE (22:35)
[2024-07-21] VITALS (17 sets, daily range): BP systolic 114–182; BP diastolic 50–66; PULSE 54–64; RESP 13–59; TEMP 97.3–98.6; O2SAT 98–100
[2024-07-21 06:30] LABS: BASOPHILS # (AUTO) 0.1 X10'3 (0-0.2); BASOPHILS % (AUTO) 0.9 % (0-1); EOSINOPHILS # (AUTO) 0.3 X10'3 (0-0.9); EOSINOPHILS % (AUTO) 5.6 % (0-6); HEMATOCRIT 31.6 % (35.0-45.0); HEMOGLOBIN 10.9 g/dl (12.0-16.0); LYMPHOCYTES # (AUTO) 1.4 X10'3 (1.1-4.8); LYMPHOCYTES % (AUTO) 24.8 % (21-51); MEAN CORPUSCULAR HEMOGLOBIN 32.9 PG (27.0-31.0); MEAN CORPUSCULAR HGB CONC 34.5 g/dL (33.0-36.5); MEAN CORPUSCULAR VOLUME 95.2 FL (78-98); MEAN PLATELET VOLUME 7.6 FL (7.4-10.4); MONOCYTES # (AUTO) 0.3 X10'3 (0-0.9); NEUTROPHILS # (AUTO) 3.6 X10'3 (1.8-7.7); NEUTROPHILS % (AUTO) 62.7 % (42-75); PLATELET COUNT 277 X10'3 (140-440); RED BLOOD COUNT 3.32 X10'6 (4.20-5.60); RED CELL DISTRIBUTION WIDTH 14.7 % (11.5-14.5); WHITE BLOOD COUNT 5.8 X10'3 (4.5-11.0)
[2024-07-21 07:04] LABS: ALANINE AMINOTRANSFERASE 8 U/L (12-78); ALBUMIN 3.1 G/DL (3.4-5.0); ALBUMIN/GLOBULIN RATIO 0.9 (1.1-1.5); ALKALINE PHOSPHATASE 77 IU/L (46-116); ANION GAP 10 (8-16); ASPARTATE AMINO TRANSFERASE 9 U/L (10-37); BILIRUBIN,TOTAL 0.3 MG/DL (0.1-1.0); BLOOD UREA NITROGEN 24 MG/DL (7-18); BUN/CREATININE RATIO 14.4 (10.0-20.0); CALCIUM 8.9 MG/DL (8.5-10.1); CHLORIDE 114 MMOL/L (99-107); CHOL/HDL RATIO 1.9 (0.00-4.99); CHOLESTEROL 162 MG/DL (0-200); CREATININE 1.67 MG/DL (0.40-0.90); GLUCOSE 92 MG/DL (70-104); HDL CHOLESTEROL 85 MG/DL (35-60); LDL CHOLESTEROL 55 MG/DL (50-100); MAGNESIUM 1.6 MG/DL (1.5-2.4); POTASSIUM 4.2 MMOL/L (3.5-5.1); PRO BRAIN NATRIURETIC PEPTIDE 1552 PG/ML (0-450); SODIUM 142 MMOL/L (135-145); TOTAL CARBON DIOXIDE 17.6 MMOL/L (24-32); TOTAL PROTEIN 6.4 G/DL (6.4-8.2); TRIGLYCERIDES 82 MG/DL (20-135); eCRCL 20 ML/MIN; eGFR 30 ML/MIN
[2024-07-21] MEDS ORDERED: heparin 1,000unit/ml 10ml vial 10 ML ONE (07:26)
[2024-07-21] MEDS ORDERED: midazolam 1 mg/ML 2ml injection ONE (07:26)
[2024-07-21] MEDS ORDERED: verapamil 2.5 mg/ml inj IV ONE (07:26)
[2024-07-21] MEDS ORDERED: iohexol 350MG/ML 100ml bottle IV ONE (07:26)
[2024-07-21] MEDS ORDERED: LIDOcaine 1% (10mg/ml) 2ml vial ONE (07:26)
[2024-07-21] MEDS ORDERED: fentaNYL/PF 50MCG/1 ML 2ML syringe ONE (07:26)
[2024-07-21] MEDS ORDERED: nitroGLYCERIN 500mcg/5mL D5W 5 ML IV ONE ×4 (07:26→08:26)
[2024-07-21] MEDS ORDERED: iohexol 350 MG/ML 50ML vial IV ONE (07:41)
[2024-07-21] MEDS ORDERED: diphenhydrAMINE 50 mg/ml inj ONE (08:24)
[2024-07-21] MEDS ORDERED: LIDOcaine 1% 30ml preserv. free vial ONE (08:37)
[2024-07-21] MEDS: gabapentin 300mg capsule PO SCH (10:48)
[2024-07-21] MEDS: cholecalciferol (vitamin D3) 1,000 unit (25mcg) tablet PO SCH (10:49)
[2024-07-21] MEDS: sodium bicarbonate 1meq/ml syr 150 ML in dextrose 5%-water 1,000 ML IV ONE (11:06)
[2024-07-21] MEDS: metoprolol tartrate 50mg tablet PO SCH (19:24)
[2024-07-21] MEDS: acetylcysteine 200 MG/ml 4ml vial PO SCH (19:27)
[2024-07-21] MEDS: atorvastatin 20mg tablet PO SCH (19:28)
[2024-07-21] MEDS: ALPRAZolam 0.25mg tablet PO ONE (22:48)
[2024-07-22 02:00] VITALS: BP 146/56; PULSE 55; RESP 12; TEMP 97.2; O2SAT 99
[2024-07-22 07:00] VITALS: BP 151/53; PULSE 55; RESP 12; TEMP 98.6; O2SAT 99
[2024-07-22 07:38] LABS: BASOPHILS # (AUTO) 0.1 X10'3 (0-0.2); EOSINOPHILS # (AUTO) 0.3 X10'3 (0-0.9); HEMATOCRIT 30.6 % (35.0-45.0); HEMOGLOBIN 10.3 g/dl (12.0-16.0); LYMPHOCYTES # (AUTO) 1.7 X10'3 (1.1-4.8); LYMPHOCYTES % (AUTO) 27.9 % (21-51); MEAN CORPUSCULAR HEMOGLOBIN 31.9 PG (27.0-31.0); MEAN CORPUSCULAR HGB CONC 33.5 g/dL (33.0-36.5); MEAN CORPUSCULAR VOLUME 95.2 FL (78-98); MEAN PLATELET VOLUME 7.8 FL (7.4-10.4); MONOCYTES # (AUTO) 0.4 X10'3 (0-0.9); MONOCYTES % (AUTO) 5.8 % (2-12); NEUTROPHILS # (AUTO) 3.8 X10'3 (1.8-7.7); NEUTROPHILS % (AUTO) 60.3 % (42-75); PLATELET COUNT 270 X10'3 (140-440); RED BLOOD COUNT 3.21 X10'6 (4.20-5.60); RED CELL DISTRIBUTION WIDTH 14.5 % (11.5-14.5); WHITE BLOOD COUNT 6.2 X10'3 (4.5-11.0)
[2024-07-22] MEDS: aspirin 81mg, enteric-coated 1 TAB TABLET.DR PO SCH (07:52)
[2024-07-22] MEDS: isosorbide mononitrate 30mg tab.SR.24H PO SCH (07:52)
[2024-07-22 08:00] VITALS: BP_SYST 151; PULSE 55
[2024-07-22 08:11] LABS: ALANINE AMINOTRANSFERASE 9 U/L (12-78); ALBUMIN 2.9 G/DL (3.4-5.0); ALKALINE PHOSPHATASE 82 IU/L (46-116); ANION GAP 11 (8-16); ASPARTATE AMINO TRANSFERASE 11 U/L (10-37); BILIRUBIN,TOTAL 0.2 MG/DL (0.1-1.0); BLOOD UREA NITROGEN 21 MG/DL (7-18); BUN/CREATININE RATIO 16.7 (10.0-20.0); CALCIUM 8.7 MG/DL (8.5-10.1); CHLORIDE 111 MMOL/L (99-107); CREATININE 1.26 MG/DL (0.40-0.90); GLUCOSE 109 MG/DL (70-104); MAGNESIUM 1.7 MG/DL (1.5-2.4); POTASSIUM 3.7 MMOL/L (3.5-5.1); SODIUM 145 MMOL/L (135-145); TOTAL PROTEIN 5.9 G/DL (6.4-8.2); eCRCL 26 ML/MIN; eGFR 41 ML/MIN
[2024-07-22 08:30] VITALS: RESP 12; O2SAT 99
[2024-07-22] MEDS ORDERED: ACET600C5 PO (12:14)
[2024-07-22] MEDS ORDERED: ATOR-2 PO (12:14)
[2024-07-22] MEDS ORDERED: NITR0.4T48 SL (12:14)
[2024-07-22] MEDS ORDERED: ASPI-1071 PO (12:14)
[2024-07-22] MEDS ORDERED: AMLO-823 PO (12:14)
[2024-07-22] MEDS ORDERED: ISOS60TA71 PO (12:14)
[2024-07-22] MEDS ORDERED: METO50TA16 PO (12:14)
[2024-07-22] MEDS ORDERED: MELA3CAP2 PO (12:20)
== END 2024-07-22 13:00 | disposition home health service (06) | DRG 280 ==
LOC: ER 03:02 → ED HOLD 04:30 → PCU 3S 07:36
PROVIDERS: ADMIT Surgery Surgical Critical Care; ATTEND Family Medicine
PROC: 4A02XM4 Measurement of Cardiac Total Activity, External Approach (ICD-10-PCS; 2024-07-20)
PROC: 3E033HZ Introduction of Radioactive Substance into Peripheral Vein, Percutaneous Approach (ICD-10-PCS; 2024-07-20)
PROC: 4A023N7 Measurement of Cardiac Sampling and Pressure, Left Heart, Percutaneous Approach (ICD-10-PCS; principal; 2024-07-22)
PROC: B2111ZZ Fluoroscopy of Multiple Coronary Arteries using Low Osmolar Contrast (ICD-10-PCS; 2024-07-22)
PROC: B2151ZZ Fluoroscopy of Left Heart using Low Osmolar Contrast (ICD-10-PCS; 2024-07-22)
PROC: B31N1ZZ Fluoroscopy of Other Upper Arteries using Low Osmolar Contrast (ICD-10-PCS; 2024-07-22)
PROC: B41F1ZZ Fluoroscopy of Right Lower Extremity Arteries using Low Osmolar Contrast (ICD-10-PCS; 2024-07-22)
DX: I21.4 Non-ST elevation (NSTEMI) myocardial infarction (principal); N17.0 Acute kidney failure with tubular necrosis; I16.1 Hypertensive emergency; F41.9 Anxiety disorder, unspecified; G89.29 Other chronic pain; K21.9 Gastro-esophageal reflux disease without esophagitis; I12.9 Hypertensive chronic kidney disease with stage 1 through stage 4 chronic kidney disease, or unspecified chronic kidney disease; N18.9 Chronic kidney disease, unspecified; I25.10 Atherosclerotic heart disease of native coronary artery without angina pectoris; M54.42 Lumbago with sciatica, left side; Z88.1 Allergy status to other antibiotic agents; Z79.899 Other long term (current) drug therapy; Z90.49 Acquired absence of other specified parts of digestive tract; Z90.710 Acquired absence of both cervix and uterus; Z86.73 Personal history of transient ischemic attack (TIA), and cerebral infarction without residual deficits; Z87.891 Personal history of nicotine dependence
CPT/HCPCS: 36415; 76937; 78452; 80053; 80061; 82565; 83036; 83605; 83690; 83735; 83880; 83930; 84295; 84443; 84484; 85025; 85610; 85730; 87081; 93005; 93017; 93306; 93458; 97161; 97530; 99152; 99153; 99285; A6212; A6213; A6258; A9500; C1725; C1894; G0378; J0280; J1200; J1644; J2003; J2250; J2270; J2470; J2785; J3010; J3490; J7030; J7070; Q9967

== ENCOUNTER 2024-08-13 22:07 | Emergency (ER) | payer MEDICARE, OTHER ==
[~2024-08-13] VITALS: Ht 152.4 cm; Wt 75.0 kg
[~2024-08-13 22:07] MED LIST changes: +ACET600C5 PO; +AMLO-823 PO; +ASPI-1071 PO; +ATOR-2 PO; -BISA-78 PO; -COLC0.6T72 PO; -DOCU-391 PO; +ISOS60TA71 PO; -LIDO700A32 TOP; -LIDO700A47 TOP; +MELA3CAP2 PO; +METO50TA16 PO; -METO5TAB85 PO; +NITR0.4T48 SL; -OMEP40CA21 PO; -ONDA-243 PO; -POLY119P2 PO
[2024-08-13 22:12] VITALS: BP 168/99; PULSE 72; RESP 18; TEMP 98.6; O2SAT 99
[2024-08-13] MEDS ORDERED: PANT40TA54 PO (22:44)
[2024-08-13] MEDS ORDERED: pantoprazole 40mg Tablet.DR PO SCH (22:45)
[2024-08-13] MEDS: LIDOcaine 2% Viscous 15ml cup MM PRN (23:04)
[2024-08-13] MEDS: mag hydrox/Alum hydrox/simeth 30ml oral suspension PO ONE (23:05)
[2024-08-13] MEDS: pantoprazole 40mg Tablet.DR PO ONE (23:05)
[2024-08-13] MEDS: ondansetron 4mg rapidly disintigrating tab PO ONE (23:05)
== END 2024-08-13 23:20 | disposition home or self-care (01) ==
LOC: ER 22:08
DX: Z00.00 Encounter for general adult medical examination without abnormal findings (principal); K21.9 Gastro-esophageal reflux disease without esophagitis; Z76.0 Encounter for issue of repeat prescription; I10 Essential (primary) hypertension; I25.10 Atherosclerotic heart disease of native coronary artery without angina pectoris; M19.90 Unspecified osteoarthritis, unspecified site; F41.9 Anxiety disorder, unspecified; Z86.73 Personal history of transient ischemic attack (TIA), and cerebral infarction without residual deficits; Z88.1 Allergy status to other antibiotic agents; Z88.8 Allergy status to other drugs, medicaments and biological substances; Z90.49 Acquired absence of other specified parts of digestive tract; Z90.710 Acquired absence of both cervix and uterus; Z98.890 Other specified postprocedural states; Z79.82 Long term (current) use of aspirin
CPT/HCPCS: 99284

== ENCOUNTER 2024-08-15 02:22 | Emergency (ER) | payer OTHER ==
[~2024-08-15] VITALS: Ht 152.4 cm; Wt 65.0 kg
[2024-08-15] MEDS: ondansetron/PF 4mg/2ml inj IV ONE (03:00)
[2024-08-15] MEDS: normal saline 1000ML IV soln IVB ONE (03:00)
[2024-08-15] MEDS: morphine 2 MG/ML inj. syringe IV ONE (03:00)
[2024-08-15 03:15] LABS: EOSINOPHILS # (AUTO) 0.1 X10'3 (0-0.9); MEAN CORPUSCULAR HGB CONC 33.6 g/dL (33.0-36.5); MONOCYTES # (AUTO) 0.5 X10'3 (0-0.9); RED BLOOD COUNT 3.79 X10'6 (4.20-5.60); RED CELL DISTRIBUTION WIDTH 14.6 % (11.5-14.5)
[2024-08-15 03:16] LABS: BASOPHILS % (AUTO) 0.7 % (0-1); HEMATOCRIT 35.4 % (35.0-45.0); HEMOGLOBIN 11.9 g/dl (12.0-16.0); LYMPHOCYTES # (AUTO) 1.2 X10'3 (1.1-4.8); MEAN CORPUSCULAR HEMOGLOBIN 31.4 PG (27.0-31.0); MEAN CORPUSCULAR VOLUME 93.4 FL (78-98); MEAN PLATELET VOLUME 7.8 FL (7.4-10.4); NEUTROPHILS # (AUTO) 3.4 X10'3 (1.8-7.7); NEUTROPHILS % (AUTO) 65.3 % (42-75); PLATELET COUNT 345 X10'3 (140-440); WHITE BLOOD COUNT 5.3 X10'3 (4.5-11.0)
[2024-08-15 03:33] LABS: ALANINE AMINOTRANSFERASE 16 U/L (12-78); ALBUMIN 4.1 G/DL (3.4-5.0); ALKALINE PHOSPHATASE 84 IU/L (46-116); ANION GAP 11 (8-16); ASPARTATE AMINO TRANSFERASE 10 U/L (10-37); BILIRUBIN,TOTAL 0.5 MG/DL (0.1-1.0); BLOOD UREA NITROGEN 27 MG/DL (7-18); BUN/CREATININE RATIO 13.7 (10.0-20.0); CALCIUM 10.1 MG/DL (8.5-10.1); CHLORIDE 101 MMOL/L (99-107); CREATININE 1.97 MG/DL (0.40-0.90); GLUCOSE 79 MG/DL (70-104); POTASSIUM 4.4 MMOL/L (3.5-5.1); SODIUM 136 MMOL/L (135-145); TOTAL CARBON DIOXIDE 23.6 MMOL/L (24-32); TOTAL PROTEIN 8.2 G/DL (6.4-8.2); eCRCL 17 ML/MIN; eGFR 24 ML/MIN
[2024-08-15 03:36] LABS: LIPASE 70 U/L (16-77)
[2024-08-15 03:58] LABS: PLATELET ESTIMATE NORMAL
[2024-08-15 04:38] LABS: BILIRUBIN,URINE NEGATIVE (Neg); CLARITY,URINE CLEAR (Clear); COLOR,URINE YELLOW (Yellow); GLUCOSE, URINE NEGATIVE (Neg); KETONES,URINE NEGATIVE (Neg); LEUKOCYTE ESTERASE ,URINE NEGATIVE (Neg); NITRITES, URINE NEGATIVE (Neg); OCCULT BLOOD,URINE TRACE-INTACT (Neg); PH,URINE 5.5 (4.8-8.0); PROTEIN,URINE NEGATIVE (Neg); UROBILINOGEN,URINE 0.2 E.U/dL (0.2-1.0)
[2024-08-15 04:42] LABS: UA COLLECTION TYPE CLN CATCH MIDSTREAM
[2024-08-15 04:45] LABS: BACTERIA,URINE NONE SEEN /HPF (Neg); RBC,URINE 0-2 /HPF (0-2); SQUAMOUS EPITHELIAL CELL,UR FEW /LPF (FEW); WBC,URINE NONE SEEN /HPF (0-4)
[2024-08-15 06:10] VITALS: BP 159/85; PULSE 72; RESP 16; TEMP 97.8; O2SAT 100
[2024-08-15] MEDS ORDERED: PANT-47 PO (16:15)
== END 2024-08-15 06:29 | disposition home or self-care (01) ==
LOC: ER 02:23
DX: R10.13 Epigastric pain (principal); I10 Essential (primary) hypertension; I25.10 Atherosclerotic heart disease of native coronary artery without angina pectoris; K21.9 Gastro-esophageal reflux disease without esophagitis; I25.2 Old myocardial infarction; M19.90 Unspecified osteoarthritis, unspecified site; F41.9 Anxiety disorder, unspecified; G89.29 Other chronic pain; M54.9 Dorsalgia, unspecified; Z88.1 Allergy status to other antibiotic agents; Z90.710 Acquired absence of both cervix and uterus; Z90.49 Acquired absence of other specified parts of digestive tract; Z86.73 Personal history of transient ischemic attack (TIA), and cerebral infarction without residual deficits; Z79.1 Long term (current) use of non-steroidal anti-inflammatories (NSAID); Z79.899 Other long term (current) drug therapy
CPT/HCPCS: 36415; 80053; 81001; 83690; 84145; 84484; 85008; 85025; 93005; 96361; 96374; 96375; 99284; J2270; J2405; J7030

== ENCOUNTER 2024-08-15 13:39 | Emergency (ER) | payer MEDICARE, OTHER ==
[~2024-08-15] VITALS: Ht 149.9 cm; Wt 110.0 kg
[2024-08-15 13:43] VITALS: BP 159/71; PULSE 71; TEMP 98; O2SAT 100
[2024-08-15] MEDS: morphine 4 MG/ML inj SYRINge IM ONE (15:15)
[2024-08-15] MEDS: mag hydrox/Alum hydrox/simeth 30ml oral suspension PO ONE (15:27)
[2024-08-15] MEDS: LIDOcaine 2% Viscous 15ml cup MM ONE (15:27)
[2024-08-15] MEDS: ondansetron 4mg rapidly disintigrating tab PO ONE (15:28)
[2024-08-15] MEDS: pantoprazole 40mg Tablet.DR PO ONE (15:28)
[2024-08-15] MEDS ORDERED: PANT-47 PO (16:15)
== END 2024-08-15 16:31 | disposition home or self-care (01) ==
LOC: ER 13:40
DX: K29.00 Acute gastritis without bleeding (principal); I10 Essential (primary) hypertension; I25.10 Atherosclerotic heart disease of native coronary artery without angina pectoris; I25.2 Old myocardial infarction; M19.90 Unspecified osteoarthritis, unspecified site; F41.9 Anxiety disorder, unspecified; G89.29 Other chronic pain; M54.9 Dorsalgia, unspecified; K21.9 Gastro-esophageal reflux disease without esophagitis; Z88.1 Allergy status to other antibiotic agents; Z90.49 Acquired absence of other specified parts of digestive tract; Z86.73 Personal history of transient ischemic attack (TIA), and cerebral infarction without residual deficits; Z90.710 Acquired absence of both cervix and uterus; Z79.899 Other long term (current) drug therapy
CPT/HCPCS: 99284; J2270

== ENCOUNTER 2025-01-02 00:31 | Emergency (ER) | payer SELFPAY ==
[~2025-01-02] VITALS: Ht 152.4 cm; Wt 53.6 kg
[~2025-01-02 00:31] MED LIST changes: -ISOS60TA71 PO; +PANT-47 PO
[2025-01-02 00:44] VITALS: TEMP 98.3
[2025-01-02 01:26] LABS: BASOPHILS % (AUTO) 0.7 % (0-1); EOSINOPHILS # (AUTO) 0.1 X10'3 (0-0.9); EOSINOPHILS % (AUTO) 2.6 % (0-6); HEMATOCRIT 32.3 % (35.0-45.0); HEMOGLOBIN 10.9 g/dl (12.0-16.0); LYMPHOCYTES # (AUTO) 0.9 X10'3 (1.1-4.8); LYMPHOCYTES % (AUTO) 15.5 % (21-51); MEAN CORPUSCULAR HEMOGLOBIN 31.3 PG (27.0-31.0); MEAN CORPUSCULAR HGB CONC 33.6 g/dL (33.0-36.5); MEAN PLATELET VOLUME 7.3 FL (7.4-10.4); MONOCYTES # (AUTO) 0.5 X10'3 (0-0.9); MONOCYTES % (AUTO) 7.9 % (2-12); NEUTROPHILS # (AUTO) 4.3 X10'3 (1.8-7.7); NEUTROPHILS % (AUTO) 73.3 % (42-75); PLATELET COUNT 286 X10'3 (140-440); RED BLOOD COUNT 3.47 X10'6 (4.20-5.60); WHITE BLOOD COUNT 5.9 X10'3 (4.5-11.0)
[2025-01-02] MEDS: mag hydrox/Alum hydrox/simeth 30ml oral suspension PO ONE (01:40)
[2025-01-02] MEDS: morphine 4 MG/ML inj SYRINge IV ONE (01:40)
[2025-01-02] MEDS: pantoprazole 40 MG vial IV ONE (01:41)
[2025-01-02 01:42] LABS: ALANINE AMINOTRANSFERASE 16 U/L (12-78); ALBUMIN 3.1 G/DL (3.4-5.0); ALBUMIN/GLOBULIN RATIO 0.8 (1.1-1.5); ALKALINE PHOSPHATASE 91 IU/L (46-116); ANION GAP 7 (8-16); ASPARTATE AMINO TRANSFERASE 17 U/L (10-37); BILIRUBIN,TOTAL 0.3 MG/DL (0.1-1.0); BLOOD UREA NITROGEN 20 MG/DL (7-18); BUN/CREATININE RATIO 14.9 (10.0-20.0); CALCIUM 8.5 MG/DL (8.5-10.1); CHLORIDE 109 MMOL/L (99-107); CREATININE 1.34 MG/DL (0.40-0.90); GLUCOSE 96 MG/DL (70-104); LIPASE 26 U/L (16-77); POTASSIUM 4.7 MMOL/L (3.5-5.1); SODIUM 140 MMOL/L (135-145); TOTAL CARBON DIOXIDE 23.6 MMOL/L (24-32); TOTAL PROTEIN 6.9 G/DL (6.4-8.2); eCRCL 24 ML/MIN; eGFR 38 ML/MIN
--- NOTE | 2025-01-02 02:07 | Physician Documentation ---
History of Present Illness ~ Chief Complaint: Abdominal Pain w/vomiting Stated Complaint: . Time Seen by MD: 01:01 Primary Medical Doctor: DM BAILEY SCOTT HPI 79-year-old female, who presents with upper abdominal pain, nausea and vomiting. She tells me for the past 1 week, she has been having significant pain in her upper abdomen. She states it is worse when she eats. She has not really been able to eat or drink much due to the pain. She also becomes nauseous and vomits when she tries to eat. She states the pain is across her entire upper abdomen, worse in the central abdomen. No fevers, chills or other infectious symptoms. No lower abdominal tenderness. No diarrhea or dysuria. She denies any acid reflux type symptoms. No history of abdominal surgeries. Nothing makes the symptoms better. Medication Reconciliation Allergies: Coded Allergies: levofloxacin (Unverified Allergy, Severe, 01/02/25) patient states seizure & cardiac arrest Scheduled Acetaminophen (Tylenol), 650 MG PO Q6H PRN PAIN, (Reported) Acetylcysteine (C-Tmvmol-y-Cysteine), 1 CAP PO Q12H Amlodipine Besylate (Amlodipine Besylate), 1 TAB PO DAILY Aspirin (Ecotrin*), 1 TAB PO DAILY Atorvastatin Calcium (Atorvastatin Calcium), 1 TAB PO DAILY Cholecalciferol (Vitamin D3) (Vitamin D3), 2 TAB PO DAILY, (Reported) Gabapentin (Gabapentin), 1 CAP PO TID, (Reported) Meloxicam* (Meloxicam*), 1 TAB PO DAILY Metoprolol Tartrate (Metoprolol Tartrate), 50 MG PO BID Omeprazole (Prilosec), 1 CAP PO DAILY Pantoprazole Sodium (Pantoprazole Sodium), 1 TAB PO BID Pantoprazole Sodium (PROTONIX tablet), 1 TAB PO DAILY Sucralfate (Sucralfate), 1 TAB PO Q6H Sucralfate (Sucralfate), 1 TAB PO Q6H Scheduled PRN Hydroxyzine Pamoate (Hydroxyzine Pamoate), 1-2 CAPSULE PO Q6H PRN for anxiety, (Reported) Melatonin (Melatonin), 1 CAP PO HS PRN for INSOMNIA Nitroglycerin (Nitroglycerin), 0.4 MG SL DAILY PRN for chest pain ONDANSETRON ODT 4mg tablet (Ondansetron Odt), 1 TAB PO Q6H PRN PRN for nausea/vomiting Quetiapine Fumarate (Quetiapine Fumarate), 2 TAB PO HS PRN for sleep, (Reported) Past Medical History Past Medical History: CVA/TIA/Stroke, Seizures, Coronary Artery Disease, Hypertension, Myocardial Infarction, GERD, Arthritis, Chronic Back Pain, Anxiety Past Surgical History: cholecystectomy, hysterectomy, orthopedic surgeries Alcohol Use: None Drug Use: none Lives with: Family Lives In: Home Occupation: retired Review of Systems Constitutional: Denies: fever Gastrointestinal: Reports: abdominal pain, nausea, vomiting; Denies: diarrhea Physical Exam Vital Signs: Temperature: 98.3, Source: Oral, Heart Rate: 72, Respiratory Rate: 18, BP: 203/88, Pulse Oximetry: 98, Weight: 53.600 Physical Exam General: This is a pleasant but tired appearing thin elderly woman HEENT: Atraumatic, oropharynx appears dry Heart: Regular rate and rhythm, normal-appearing peripheral perfusion Lungs: Clear breath sounds bilateral, normal work of breathing, normal oxygen saturation on room air Abdomen: Soft, nondistended. She is quite tender across the upper abdomen, worse in the epigastric region. No lower abdominal tenderness. Neuro: Alert and oriented, no focal deficits Psychiatric: Calm and cooperative with exam Progress Results/Orders Results/Orders Orders - KAR KRISHNAN MD Ct Abdomen Pelvis (01/02/25 02:30) Completed Orders - KAR KRISHNAN MD Cbc/Diff (01/02/25 00:48) BMP (01/02/25 00:48) Lipase (01/02/25 00:48) CMP (01/02/25 00:48) Morphine 4mg/Ml Inj. (Morphine Inj.) (01/02/25 01:10) Pantoprazole 40mg Iv (Protonix 40mg Iv) (01/02/25 01:10) Mag & Alum Hydrox/Simeth Susp (Maalox Or (01/02/25 01:10) Ct Abdomen Pelvis (01/02/25 02:30) Ua W/Microscopic, Cult If Ind (01/02/25 02:33) Medications Received in ER Medications (Trade) Dose Ordered Sig/Kiara Route PRN Reason Start Time Stop Time Status Last Admin Dose Admin (morphine inj.) 4 mg ONCE ONCE IV 01/02/25 01:10 01/02/25 01:11 DC 01/02/25 01:40 4 MG (Protonix 40mg IV) 40 mg ONCE ONCE IV 01/02/25 01:10 01/02/25 01:11 DC 01/02/25 01:41 40 MG (Maalox oral suspension) 30 ml ONCE ONCE PO 01/02/25 01:10 01/02/25 01:11 DC 01/02/25 01:40 30 ML Vital Signs 01/02/25 01/02/25 01/02/25 01/02/25 00:44 00:45 01:30 01:40 Temp 98.3 Pulse 72 92 Resp 22 20 18 18 B/P (MAP) 203/88 170/70 (103) Pulse Ox 98 98 01/02/25 01/02/25 01/02/25 02:43 04:40 04:43 Pulse 67 85 82 Resp 16 16 16 B/P (MAP) 193/81 (118) 176/82 (113) 176/82 Pulse Ox 98 98 98 Laboratory Tests Test 01/02/25 01:09 01/02/25 02:33 White Blood Count 5.9 Red Blood Count 3.47 L Hemoglobin 10.9 L Hematocrit 32.3 L Mean Corpuscular Volume 93.0 Mean Corpuscular Hemoglobin 31.3 H Mean Corpuscular Hemoglobin Concent 33.6 Red Cell Distribution Width 14.0 Platelet Count 286 Mean Platelet Volume 7.3 L Neutrophils (%) (Auto) 73.3 Lymphocytes (%) (Auto) 15.5 L Monocytes (%) (Auto) 7.9 Eosinophils (%) (Auto) 2.6 Basophils (%) (Auto) 0.7 Neutrophils # (Auto) 4.3 Lymphocytes # (Auto) 0.9 L Monocytes # (Auto) 0.5 Eosinophils # (Auto) 0.1 Basophils # (Auto) 0.0 CBC Comment Sodium Level 140 Potassium Level 4.7 Chloride Level 109 H Carbon Dioxide Level 23.6 L Anion Gap 7 L Blood Urea Nitrogen 20 H Creatinine 1.34 H Estimated GFR/1.73 m2 38 BUN/Creatinine Ratio 14.9 Glucose Level 96 Calcium Level 8.5 Total Bilirubin 0.3 Aspartate Amino Transf (AST/SGOT) 17 Alanine Aminotransferase (ALT/SGPT) 16 Alkaline Phosphatase 91 Total Protein 6.9 Albumin 3.1 L Globulin 3.8 Albumin/Globulin Ratio 0.8 L Lipase 26 Chemistry Comments Urine Specimen Description Voided Urine Color Yellow Urine Clarity Clear Urine pH 6.0 Urine Specific [place] 1.010 Urine Protein Trace Urine Glucose (UA) Negative Urine Ketones Negative Urine Occult Blood Trace-intact Urine Nitrite Negative Urine Bilirubin Negative Urine Urobilinogen 0.2 Urine Leukocyte Esterase Negative Urine RBC 0-2 Urine WBC None seen Urine Squamous Epithelial Cells Few Urine Bacteria None seen Urine Culture Indicated Not ind Volume Urine Centrifuged 10 ml Urine Comment Medical Decision Making Diff Dx N/V/D:Considerations: Include: Appendicitis, Bowel obstruction, Dehydration, Diverticulitis, Electrolyte imbalance, Food poisoning, Gastroenteritis, GE reflux, GI bleed, Hepatitis, Pancreatitis, Urolithiasis Assessment The patient presents with upper abdominal pain, which is worse with eating. Per her history and exam this all appears most consistent with gastritis. Her workup was otherwise unrevealing including unremarkable laboratory testing. CT scan with no acute or dangerous process in the abdomen. After symptomatic treatment, her pain resolved. She was able to drink water without vomiting. She will be discharged with Zofran, omeprazole, and sucralfate. She was given dietary information and home care instructions. Departure Time of Disposition: 04:36 Disposition: HOME / SELF CARE / HOMELESS Impression: Primary Impression: Acute gastritis Additional Impression: Nausea and vomiting Condition: Improved Discharge Instructions: Gastritis, Adult Referrals: NO PRIMARY CARE PROVIDER (PCP) Prescriptions ONDANSETRON ODT 4mg tablet (ONDANSETRON ODT) 4 Mg Tab.rapdis 1 TAB PO Q6H PRN PRN for nausea/vomiting for 4 Days, #16 TAB 1 Refill Prov: KAR KRISHNAN MD 01/02/25 Omeprazole (Prilosec) 40 Mg Capsule 1 CAP PO DAILY for 30 Days, #30 CAP Prov: KAR KRISHNAN MD 01/02/25 Sucralfate (Sucralfate) 1 Gram Tablet 1 TAB PO Q6H for 30 Days, #120 TAB 0 Refills Prov: KAR KRISHNAN MD 01/02/25 Sucralfate (Sucralfate) 1 Gram Tablet 1 TAB PO Q6H for 30 Days, #120 TAB 0 Refills Prov: KAR KRISHNAN MD 01/02/25 ONDANSETRON ODT 4mg tablet (ONDANSETRON ODT) 4 Mg Tab.rapdis 1 TAB PO Q6H PRN PRN for nausea/vomiting for 4 Days, #16 TAB 1 Refill Prov: KAR KRISHNAN MD 01/02/25 Omeprazole (Prilosec) 40 Mg Capsule 1 CAP PO DAILY for 30 Days, #30 CAP 1 Refill Prov: KAR KRISHNAN MD 01/02/25 Education Educated: Patient Educated regarding: diagnosis, treatment, need for follow up Signature Scribe Signature: alfredo Attestation: KAR Herrera MD Jan 02, 2025 02:07
[2025-01-02 03:00] LABS: BILIRUBIN,URINE NEGATIVE (Neg); CLARITY,URINE CLEAR (Clear); COLOR,URINE YELLOW (Yellow); GLUCOSE, URINE NEGATIVE (Neg); KETONES,URINE NEGATIVE (Neg); LEUKOCYTE ESTERASE ,URINE NEGATIVE (Neg); NITRITES, URINE NEGATIVE (Neg); OCCULT BLOOD,URINE TRACE-INTACT (Neg); PROTEIN,URINE TRACE mg/dl (Neg); UROBILINOGEN,URINE 0.2 E.U/dL (0.2-1.0)
[2025-01-02 03:01] LABS: UA COLLECTION TYPE VOIDED
[2025-01-02 03:05] LABS: RBC,URINE 0-2 /HPF (0-2); WBC,URINE NONE SEEN /HPF (0-4)
[2025-01-02 03:06] LABS: BACTERIA,URINE NONE SEEN /HPF (Neg); SQUAMOUS EPITHELIAL CELL,UR FEW /LPF (FEW)
--- NOTE | 2025-01-02 04:17 | RADIOLOGY REPORT ---
Exam: CT CT ABDOMEN PELVIS History: Upper abdominal pain, vomiting Comparison Study: CT CT ABDOMEN PELVIS on DOS: 07/19/24, CT CT ABDOMEN PELVIS on DOS: 10/19/23, CT ABDOME N PELVIS on DOS: 01/28/23, CT ABDOMEN PELVIS on DOS: 07/29/22, CT ABDOMEN PELVIS on DOS: 12/30/21 Technique: Multidetector spiral CT of the abdomen was performed from lung bases to pubic symphysis. I maging was performed without IV contrast. Axial, coronal and sagittal multiplanar reformats were obta ined from the axial data set by the technologist. Radiation Dose : 1. Abdomen/Pelvis: CTDIvol 16.41 mGy, DLP 740.02 mGy*cm. Findings: Evaluation of solid organs is limited due to lack of intravenous contrast use. Lung Bases: No acute or significant lung base finding. Normal heart size. No pleural or pericardial effusion. Liver: The liver is normal in size. Minor chronic appearing calcifications within the anterior left h epatic lobe redemonstrated. No focal lesions. Gallbladder and Biliary Tree: Status post cholecystectomy. Spleen: Unremarkable Pancreas: The pancreas is grossly normal in appearance. Adrenal Glands: Unremarkable Kidneys: Mild bilateral renal cortical atrophy and multifocal cortical scarring. Kidneys are otherwis e grossly normal without calculi or hydronephrosis. Left inferior pole renal cortical cyst measures 2 .7 cm. Bladder: Grossly unremarkable for degree of distention. Bowel: The stomach is grossly normal in appearance. Small bowel and colon are normal in caliber and d istribution. Extensive colonic diverticula throughout the descend and sigmoid colon without CT eviden ce of acute diverticulitis. The appendix is not visualized; however, no secondary findings of acute a ppendicitis identified. Ascites: Absent Lymphadenopathy: No mesenteric, retroperitoneal or periportal lymphadenopathy. Abdominal Wall and Mesentery: Unremarkable. Vasculature: The visualized abdominal aorta is normal in size and caliber. Atherosclerotic vascular c alcifications. Evaluation of abdominal and pelvic vessels is limited due to lack of intravenous cont rast. Pelvic Organs: Unremarkable, status post hysterectomy. Musculoskeletal: No aggressive focal bony lesions, acute fractures or dislocation. Stable anterolisth esis of L4 on L5 measuring 7 mm and chronic appearing osseous fusion of L5-S1. Stable sclerotic focus within the left femoral head. IMPRESSION: 1. No acute abdominal or pelvic findings. 2. Diverticulosis coli without CT evidence of acute diverticulitis. 3. Bilateral renal cortical atrophy and scarring. Radiation optimization: All CT scans at this facility use at least one of these dose optimization lorraine hniques: automated exposure control mA and/or kV adjustment per patient size (includes targeted exam s where dose is matched to clinical indication) or iterative reconstruction.
[2025-01-02] MEDS ORDERED: SUCR1TAB PO (04:38)
[2025-01-02] MEDS ORDERED: OMEP40CA21 PO (04:38)
[2025-01-02] MEDS ORDERED: ONDA-243 PO (04:38)
[2025-01-02 04:43] VITALS: BP 176/82; PULSE 82; RESP 16; O2SAT 98
== END 2025-01-02 04:50 | disposition home or self-care (01) ==
LOC: ER 00:33
DX: K29.00 Acute gastritis without bleeding (principal); I10 Essential (primary) hypertension; I25.10 Atherosclerotic heart disease of native coronary artery without angina pectoris; I25.2 Old myocardial infarction; M19.90 Unspecified osteoarthritis, unspecified site; Z86.73 Personal history of transient ischemic attack (TIA), and cerebral infarction without residual deficits; Z88.1 Allergy status to other antibiotic agents; Z90.49 Acquired absence of other specified parts of digestive tract; Z90.710 Acquired absence of both cervix and uterus; Z79.899 Other long term (current) drug therapy
CPT/HCPCS: 36415; 74176; 80053; 81001; 83690; 85025; 96374; 96375; 99285; J2270; J2470

== ENCOUNTER 2025-01-14 02:29 | Emergency (ER) | payer MEDICARE, OTHER ==
[~2025-01-14] VITALS: Ht 152.4 cm; Wt 53.6 kg
[~2025-01-14 02:29] MED LIST changes: +OMEP40CA21 PO; +ONDA-243 PO
[2025-01-14 02:32] VITALS: TEMP 97.6
[2025-01-14] MEDS: normal saline 1000ML IV soln IVB ONE (02:58)
--- NOTE | 2025-01-14 03:01 | Physician Documentation ---
History of Present Illness ~ Chief Complaint: Back Pain Stated Complaint: BACK PAIN Time Seen by MD: 02:56 Primary Medical Doctor: DM CHAVEZ [facility] Patient presents to the emergency room with a 4 hours back pain. Patient was seen here for back pain previously and then it up being admitted for investigation of possible ACS. Stress test was positive at that time and cardiac catheterization was performed but no stents placed as patient preferred medical therapy. She denies any current chest pain. She denies any falls or traumas that may have caused her back pain. Back pain is located just above her tailbone. She states that this has happened before unusually resolves with Voltaren gel and tizanidine. After a proximally 4-5 hours of waiting for this to work she continues to have significant pain therefore called for an ambulance. Ambulance note that patient has hypotension and bradycardia. She is on a beta-marisel. IV fluids initiated in pressures are beginning to come up. She denies any fevers. Medication Reconciliation Allergies: Coded Allergies: levofloxacin (Unverified Allergy, Severe, 01/14/25) patient states seizure & cardiac arrest Scheduled Acetaminophen (Tylenol), 650 MG PO Q6H PRN PAIN, (Reported) Acetylcysteine (K-Ojhupj-x-Cysteine), 1 CAP PO Q12H Amlodipine Besylate (Amlodipine Besylate), 1 TAB PO DAILY Aspirin (Ecotrin*), 1 TAB PO DAILY Atorvastatin Calcium (Atorvastatin Calcium), 1 TAB PO DAILY Cholecalciferol (Vitamin D3) (Vitamin D3), 2 TAB PO DAILY, (Reported) Gabapentin (Gabapentin), 1 CAP PO TID, (Reported) Lisinopril (Lisinopril), 1 TAB PO DAILY, (Reported) Meloxicam* (Meloxicam*), 1 TAB PO DAILY Metoprolol Tartrate (Metoprolol Tartrate), 50 MG PO BID Omeprazole (Prilosec), 1 CAP PO DAILY Omeprazole (Prilosec), 1 CAP PO DAILY Pantoprazole Sodium (Pantoprazole Sodium), 1 TAB PO BID Pantoprazole Sodium (PROTONIX tablet), 1 TAB PO DAILY Sucralfate (Sucralfate), 1 TAB PO Q6H Sucralfate (Sucralfate), 1 TAB PO Q6H Sucralfate (Sucralfate), 1 TAB PO Q6H Scheduled PRN Hydroxyzine Pamoate (Hydroxyzine Pamoate), 1-2 CAPSULE PO Q6H PRN for anxiety, (Reported) Melatonin (Melatonin), 1 CAP PO HS PRN for INSOMNIA Nitroglycerin (Nitroglycerin), 0.4 MG SL DAILY PRN for chest pain ONDANSETRON ODT 4mg tablet (Ondansetron Odt), 1 TAB PO Q6H PRN PRN for nausea/vomiting ONDANSETRON ODT 4mg tablet (Ondansetron Odt), 1 TAB PO Q6H PRN PRN for nausea/vomiting Quetiapine Fumarate (Quetiapine Fumarate), 2 TAB PO HS PRN for sleep, (Reported) Past Medical History Past Medical History: CVA/TIA/Stroke, Seizures, Coronary Artery Disease, Hypertension, Myocardial Infarction, GERD, Arthritis, Chronic Back Pain, Anxiety Past Surgical History: cholecystectomy, hysterectomy, orthopedic surgeries Alcohol Use: None Drug Use: none Lives with: Family Lives In: Home Occupation: retired Review of Systems ROS All review of systems negative except as per HPI Physical Exam Physical Exam Vital Signs: Temperature: 97.6, Source: Oral, Heart Rate: 50, Respiratory Rate: 13, BP: 100/48, Pulse Oximetry: 100, Weight: 53.640 Physical Exam General: Patient is awake, alert, oriented x4 in no acute distress Head: Normocephalic and atraumatic. Eyes: Conjunctival normal. EOMI. PERRL. ENT: Mucous membranes moist. Neck: Supple, trachea is midline. Chest: Clear to auscultation bilaterally without rales, rhonchi, or wheezes. There is no accessory muscle use or retractions. Cardiac: RRR without murmurs, gallops, or rubs. Abd: Soft, nondistended, nontender, with normoactive bowel sounds. No guarding, rebound, or rigidity. Back: Tenderness to palpation just superior and lateral to tailbone Progress Results/Orders Results/Orders Orders - SHUKRI HOLLEY MD Culture Blood (01/14/25 02:47) Chest,Single View (01/14/25 03:00) Completed Orders - SHUKRI HOLLEY MD Electrocardiogram (01/14/25 ) Cbc/Diff (01/14/25 02:47) MG (01/14/25 02:47) Chest,Single View (01/14/25 03:00) Procalcitonin (01/14/25 02:47) BMP (01/14/25 02:47) Lacticsepsis (01/14/25 02:47) Normal Saline 1000ml (Sodium Chloride 10 (01/14/25 02:50) Ringers Solution, Lacted (Lactated Ringe (01/14/25 02:50) Ceftriaxone/W3y-Rkjtovbb 1gm (Rocephin 1 (01/14/25 02:50) Troponin (Single) (01/14/25 02:58) Acetaminophen 325mg Tablet (Tylenol Tabl (01/14/25 03:20) Lidocaine 5% Patch (Lidoderm 5% Patch) (01/14/25 03:20) Tramadol Tablet (Ultram Tablet) (01/14/25 04:30) Ua W/Microscopic, Cult If Ind (01/14/25 04:58) Vital Signs 01/14/25 01/14/25 01/14/25 01/14/25 02:32 02:41 02:41 04:36 Temp 97.6 Pulse 50 50 Resp 18 13 16 16 B/P (MAP) 94/54 100/48 (65) Pulse Ox 100 100 01/14/25 04:39 Pulse 56 Resp 10 B/P (MAP) 123/47 (72) Pulse Ox 100 Laboratory Tests Test 01/14/25 03:00 01/14/25 04:58 White Blood Count 3.7 L Red Blood Count 2.96 L Hemoglobin 9.5 L Hematocrit 27.5 L Mean Corpuscular Volume 93.2 Mean Corpuscular Hemoglobin 32.1 H Mean Corpuscular Hemoglobin Concent 34.5 Red Cell Distribution Width 14.6 H Platelet Count 250 Mean Platelet Volume 7.7 Neutrophils (%) (Auto) 55.8 Lymphocytes (%) (Auto) 29.8 Monocytes (%) (Auto) 8.5 Eosinophils (%) (Auto) 5.1 Basophils (%) (Auto) 0.8 Neutrophils # (Auto) 2.1 Lymphocytes # (Auto) 1.1 Monocytes # (Auto) 0.3 Eosinophils # (Auto) 0.2 Basophils # (Auto) 0.0 CBC Comment Sodium Level 146 H Potassium Level 4.0 Chloride Level 112 H Carbon Dioxide Level 21.7 L Anion Gap 12 Blood Urea Nitrogen 27 H Creatinine 1.76 H Estimated GFR/1.73 m2 28 BUN/Creatinine Ratio 15.3 Glucose Level 121 H Lactic Acid Level 1.1 Calcium Level 8.2 L Magnesium Level 1.9 Troponin I High Sensitivity 9 Albumin 3.0 L Procalcitonin < 0.05 Chemistry Comments Urine Specimen Description Non-specified Urine Color Yellow Urine Clarity Clear Urine pH 6.0 Urine Specific [place] <=1.005 Urine Protein Negative Urine Glucose (UA) Negative Urine Ketones Negative Urine Occult Blood Trace-intact Urine Nitrite Negative Urine Bilirubin Negative Urine Urobilinogen 0.2 Urine Leukocyte Esterase Negative Urine RBC 0-2 Urine WBC None seen Urine Squamous Epithelial Cells None seen Urine Bacteria None seen Urine Culture Indicated Not ind Volume Urine Centrifuged 10 ml Urine Comment Microbiology Date/Time Source Procedure Growth Status 01/14/25 03:01 Blood Hand Right Blood Culture - Preliminary NEGATIVE (LESS THAN 24 HOURS) Resulted EKG/XRAY/CT/US/VASC/MRI EKG : Additional Comment EKG interpreted by myself shows time of 0241, rate 52, sinus bradycardia, normal axis, nonspecific ST-T changes Chest X-Ray : Additional Comments One view chest x-ray interpreted by myself shows no effusions, no infiltrates and normal cardiac silhouette Medical Decision Making Findings Patient presents to the emergency room with unstable vitals with hypotensive and bradycardic with chief complaint of back pain. Per actual area of pain that has near her coccyx. Symptoms have happened previously with no known cause. Of concern or patient's vitals. I have personally seen her heart rate down to 44 and she had significant hypotension as well. This may be due to medication side effect. She does take metoprolol. She is unwilling to stay. 6:30 A.M.: CARE THE PATIENT WAS TRANSFERRED TO ME BY DR. HOLLEY. HOWEVER THE PATIENT APPARENTLY WAS ADMITTED AND WENT UP TO THE FLOOR PRIOR TO ME SEEING HER IMAGING AND BEING ABLE TO EVALUATE HER. I DID NOT SEE THIS PATIENT. Differential Dx:Considerations: Include: Aortic dissection, Bowel obstruction, Fracture, Musculoskeletal pain, Strain, Urolithiasis Departure Disposition: 01 HOME / SELF CARE / HOMELESS Impression: Primary Impression: Hypotension Additional Impressions: Bradycardia Buttock pain Condition: Guarded Additional Instructions: UR to cut your metoprolol dosage in half and begin blood pressure log and to call your doctor today to arrange for follow up for monitoring of your blood pressure. Your blood pressure and heart rate were very low last night your heart rate got down to 44 in her blood pressure was in the low 90s. I believe this is a side effect from your medication. Return for any dizziness or weakness or passing out. Referrals: NO PRIMARY CARE PROVIDER (PCP) Education Educated: Patient Educated regarding: diagnosis, treatment, need for follow up Signature Scribe Signature: No scribe Attestation: The note accurately reflects work and decisions made by me.Shukri Holley MD 01/14/25 04:39 SHUKRI HOLLEY MD Jan 14, 2025 03:01 JAIDEN RUBIN MD Jan 14, 2025 14:13
[2025-01-14] MEDS: CefTRIAXone/D5W-Rocephin 1gm 50 ML IV ONE (03:15)
[2025-01-14] MEDS: ringers solution, lactated 1000ml IV soln IV ONE (03:18)
[2025-01-14 03:19] LABS: MEAN PLATELET VOLUME 7.7 FL (7.4-10.4); RED CELL DISTRIBUTION WIDTH 14.6 % (11.5-14.5)
[2025-01-14 03:31] LABS: CREATININE 1.76 MG/DL (0.40-0.90); TOTAL CARBON DIOXIDE 21.7 MMOL/L (24-32); eCRCL 18 ML/MIN; eGFR 28 ML/MIN
--- NOTE | 2025-01-14 03:44 | RADIOLOGY REPORT ---
CHEST RADIOGRAPH Indication: SEPSIS Technique: Single frontal view of the chest was obtained Comparison: DI CHEST,SINGLE VIEW on DOS: 03/10/23, CHEST,SINGLE VIEW on DOS: 01/25/23, CHEST,SINGLE VIE W on DOS: 12/27/21 IMPRESSION: Heart appears normal in size. The lungs appear clear without focal airspace opacity, effusion, or pn eumothorax
[2025-01-14] MEDS ORDERED: LISI20TA28 PO (04:47)
[2025-01-14] MEDS ORDERED: bisacodyl 10mg suppository rectal RC PRN (05:15)
[2025-01-14] MEDS ORDERED: magnesium sulf-water 4G/100mL 100 ML IV PRN (05:15)
[2025-01-14] MEDS ORDERED: normal saline 1000ml 1,000 ML IV SCH (05:15)
[2025-01-14] MEDS ORDERED: ondansetron/PF 4mg/2ml inj IV PRN (05:15)
[2025-01-14] MEDS ORDERED: HYDROcodone/acetaminophen 10/325mg tab PO PRN (05:15)
[2025-01-14] MEDS ORDERED: magnesium sulf-water 2g/50mL 50 ML IV PRN (05:15)
[2025-01-14] MEDS ORDERED: HYDROmorphone/PF 0.2 MG/ML SYRINGE IV PRN (05:15)
[2025-01-14] MEDS ORDERED: magnesium hydroxide 30ml (MOM) UD suspension PO PRN (05:15)
[2025-01-14] MEDS ORDERED: magnesium Cl slow-release 64mg tablet PO PRN (05:15)
[2025-01-14] MEDS ORDERED: potassium Cl 20 mEq SR tablet PO PRN ×2 (05:15)
[2025-01-14] MEDS ORDERED: HYDROcodone/acetaminophen 5mg/325mg tablet PO PRN (05:15)
[2025-01-14] MEDS ORDERED: mag hydrox/Alum hydrox/simeth 30ml oral suspension PO PRN (05:15)
[2025-01-14] MEDS ORDERED: HYDROmorphone inj. 0.5 MG/0.5 ML DISP.SYRIN IV PRN (05:15)
[2025-01-14] MEDS ORDERED: potassium Cl 40MEQ/1/2NS 520ml 520 ML IV PRN (05:15)
[2025-01-14 05:21] LABS: LEUKOCYTE ESTERASE ,URINE NEGATIVE (Neg); NITRITES, URINE NEGATIVE (Neg); OCCULT BLOOD,URINE TRACE-INTACT (Neg)
[2025-01-14 05:40] LABS: UA COLLECTION TYPE NON-SPECIFIED
[2025-01-14 05:42] LABS: SQUAMOUS EPITHELIAL CELL,UR NONE SEEN /LPF (FEW)
--- NOTE | 2025-01-14 06:31 | ELECTROCARDIOGRAPH REPORT ---
[facility] Test Date: 2025-01-14 Test Time: 02:41:15 Pat Name: SUZANNE HODGE Department: EMERGENCY ROOM Room: ED 12 Gender: F [employer] Work[employer]: JOVANY : 1945 Requested By: CARLA JAIMES Order Number: [id number] Reading MD: Measurements Intervals [place] Rate: 52 P: 60 MI: 81 QRS: 56 QRSD: 116 T: 68 QT: 487 QTc: 453 Interpretive Statements Atrial-paced complexes Nonspecific intraventricular conduction delay Minimal ST elevation, anterior leads Please click the below link to view image of tracing.
[2025-01-14] MEDS: fentaNYL/PF 50MCG/1 ML 2ML syringe IV ONE (06:44)
[2025-01-14] MEDS ORDERED: pantoprazole 40mg Tablet.DR PO SCH (07:30)
[2025-01-14] MEDS ORDERED: docusate sod 100mg capsule PO SCH (08:00)
[2025-01-14] MEDS ORDERED: MELOXICAM 7.5 MG TABLET PO SCH (08:00)
[2025-01-14] MEDS ORDERED: K and/or MAG REPLACEMENT MC SCH (08:00)
[2025-01-14] MEDS ORDERED: heparin, porcine 5000 units/ml vial SQ SCH (08:00)
[2025-01-14 08:42] VITALS: BP 147/73; PULSE 70; RESP 12; O2SAT 100
--- NOTE | 2025-01-14 09:37 | RADIOLOGY REPORT ---
EXAM: CT CT LUMBAR SPINE HISTORY: pain COMPARISON: None CTDIvol 18.8 mGy, DLP 614.3 mGy*cm. TECHNIQUE: Multiple axial CT images of the spine were obtained using bone algorithm. Axial and maldonado l reformatting was done. Bone and soft tissue windows were reviewed. FINDINGS: No evidence of definite acute fracture, spinal dislocation, or significant appearing acute subluxatio n is seen. Multilevel degenerative changes of the spine. Grade 2 anterolisthesis of L5 on S1. Moderate to severe canal stenosis at L4-L5 and L5-S1. IMPRESSION: No definite CT evidence of acute fracture or dislocation of the bony lumbar spine.
== END 2025-01-14 10:50 | disposition home or self-care (01) ==
LOC: ER 02:30 → ED HOLD 05:14 → UNDOADMIN 05:14 → ED HOLD 10:05 → ORTHO 4S 10:05 → ER 10:50 → UNDODISIN 10:50
DX: I95.9 Hypotension, unspecified (principal); R00.1 Bradycardia, unspecified; M54.9 Dorsalgia, unspecified; I25.10 Atherosclerotic heart disease of native coronary artery without angina pectoris; K21.9 Gastro-esophageal reflux disease without esophagitis; F41.9 Anxiety disorder, unspecified; Z90.710 Acquired absence of both cervix and uterus; Z90.79 Acquired absence of other genital organ(s)
CPT/HCPCS: 36415; 71045; 72131; 80048; 81001; 83605; 83735; 84145; 84484; 85025; 87040; 93005; 96365; 96375; 99285; J0696; J3010; J7030; J7040; J7120; G0378

== ENCOUNTER 2025-03-13 23:49 | Emergency (ER) | payer OTHER ==
[~2025-03-13] VITALS: Ht 152.4 cm; Wt 53.6 kg
[~2025-03-13 23:49] MED LIST changes: +LISI20TA28 PO
[2025-03-14 00:10] VITALS: BP 188/98; PULSE 82; RESP 15; TEMP 96.3; O2SAT 99
[2025-03-14] MEDS ORDERED: AMOX-117 PO (01:03)
--- NOTE | 2025-03-14 01:04 | Physician Documentation ---
History of Present Illness ~ Chief Complaint: Ear Pain Stated Complaint: EAR PAIN Time Seen by MD: 00:59 Primary Medical Doctor: DM LANCE This is a 79-year-old female who presents for evaluation of left ear pain for the last three days. No obvious trigger provocation. No palliating or aggravating factors. Pain is moderate to severe in its intensity. Similar to prior ear infections. Denies difficulty opening mouth, voice changes, vision or hearing changes. Denies fever or chills. Denies chest pain or difficulty breathing. No concern for tobacco, alcohol or illicit substances use Medication Reconciliation Allergies: Coded Allergies: levofloxacin (Unverified Allergy, Severe, 03/14/25) patient states seizure & cardiac arrest Scheduled Acetaminophen (Tylenol), 650 MG PO Q6H PRN PAIN, (Reported) Acetylcysteine (B-Iihflk-j-Cysteine), 1 CAP PO Q12H Amlodipine Besylate (Amlodipine Besylate), 1 TAB PO DAILY Aspirin (Ecotrin*), 1 TAB PO DAILY Atorvastatin Calcium (Atorvastatin Calcium), 1 TAB PO DAILY Cholecalciferol (Vitamin D3) (Vitamin D3), 2 TAB PO DAILY, (Reported) Gabapentin (Gabapentin), 1 CAP PO TID, (Reported) Lisinopril (Lisinopril), 1 TAB PO DAILY, (Reported) Meloxicam* (Meloxicam*), 1 TAB PO DAILY Metoprolol Tartrate (Metoprolol Tartrate), 50 MG PO BID Omeprazole (Prilosec), 1 CAP PO DAILY Pantoprazole Sodium (Pantoprazole Sodium), 1 TAB PO BID Pantoprazole Sodium (PROTONIX tablet), 1 TAB PO DAILY Sucralfate (Sucralfate), 1 TAB PO Q6H Sucralfate (Sucralfate), 1 TAB PO Q6H Sucralfate (Sucralfate), 1 TAB PO Q6H Scheduled PRN Hydroxyzine Pamoate (Hydroxyzine Pamoate), 1-2 CAPSULE PO Q6H PRN for anxiety, (Reported) Melatonin (Melatonin), 1 CAP PO HS PRN for INSOMNIA Nitroglycerin (Nitroglycerin), 0.4 MG SL DAILY PRN for chest pain ONDANSETRON ODT 4mg tablet (Ondansetron Odt), 1 TAB PO Q6H PRN PRN for nausea/vomiting ONDANSETRON ODT 4mg tablet (Ondansetron Odt), 1 TAB PO Q6H PRN PRN for nausea/vomiting Quetiapine Fumarate (Quetiapine Fumarate), 2 TAB PO HS PRN for sleep, (Reported) Past Medical History Past Medical History: CVA/TIA/Stroke, Seizures, Coronary Artery Disease, Hypertension, Myocardial Infarction, GERD, Arthritis, Chronic Back Pain, Anxiety Past Surgical History: cholecystectomy, hysterectomy, orthopedic surgeries Alcohol Use: None Drug Use: none Lives with: Family Lives In: Home Occupation: retired Review of Systems ROS 10 point review of systems was performed and unless noted above in HPI is negative for acute process/complaint. Physical Exam Vital Signs: Temperature: 96.3, Source: Temporal, Heart Rate: 82, Respiratory Rate: 15, BP: 188/98, Pulse Oximetry: 99, Weight: 53.640 Physical Exam Physical examination: GENERAL: Awake, alert, oriented, GCS 15, no apparent distress, non-toxic appearing, answers questions, follows commands appropriately. HEENT: Atraumatic, normocephalic, pupils equal, extraocular muscles intact Active gross movements, sclerae anicteric, mucus membranes moist, no stridor. NECK: Midline, no JVD CARDIOVASCULAR: Good skin perfusion without evidence of pallor, mottling. PULMONARY: Nonlabored, symmetric chest rise, no audible wheezing, no accessory muscle use, no respiratory distress, speaking in full sentences. GASTROINTESTINAL: Not distended. NEUROLOGIC: Lucid with normal mental status. Normal facial symmetry. Moves all extremities symmetrically and with purpose. No truncal ataxia. Speech is fluid without evidence of dysarthria or aphasia, no focal deficits appreciated. EXTREMITIES: Acute deformities Skin: warm, dry PSYCHIATRIC: Normal affect, normal insight, normal concentration. Focused exam: Left tympanic membrane is partially obscured by wax, but what I can see appears to be erythematous, bulging, injected. There is no pain with a tugging of the tragus. There is no mastoid tenderness to palpation/percussion. No mastoid erythema. Progress Results/Orders Results/Orders Vital Signs 03/14/25 00:10 Temp 96.3 Pulse 82 Resp 15 B/P (MAP) 188/98 Pulse Ox 99 Medical Decision Making Findings Facility Status: ED Holds, RME process The plan was discussed with the patient, who demonstrates clear understanding of the plan and is in agreement with the plan unless otherwise noted in the chart. All questions have been answered, all concerns were addressed unless otherwise documented. I was available throughout their ED stay for frequent reassessment and questions. Differential Diagnoses (considered and possible or likely): [Otitis media, acute. Otitis externa. Otitis media with a fusion. Clinically not consistent with mastoiditis.] ??Differential Diagnoses (considered and unlikely, not requiring evaluation currently): [No evidence of trismus, no evidence of peritonsillar abscess or retropharyngeal abscess. Clinically unlikely to represent giant cell arteritis or cluster headaches.] MDM Data Please see [facility] for the following: Independent Historians and external Records Review. Historian: [Patient] Independent Historians: ?[None] Medication Management: [Reviewed medication list] Social History and determinants: [Reviewed] Please see the body of the note for the following: Any independent interpretations of ECG, imaging studies. All vitals signs/haemodynamics, ordered tests were independently reviewed and interpreted by myself. Nursing triage complaint and vitals reviewed, additional nursing notes were reviewed as available and I agree unless otherwise noted or documented in contradiction in the chart Vital Signs: Independently reviewed Labs: Independently interpreted Imaging: Independently interpreted Old Medical Records: Independently reviewed, see [facility] for relevant summary and information Pulse Oximetry: [97%] interpreted as [normal on room air] by me Additionally notably showing: [Hemodynamically stable] Tests considered but not ordered include: [Hematologic workup and imaging has been considered but does not appear to be necessary given clinical nature of diagnosis] Social Determinants of Health Impact: Patient was evaluated in [facility], or [facility] [place] access to healthcare due to below par ratio of patient to medical providers. [] Comorbid Conditions Impacting Present Evaluation and Care/Treatment: [Prior history of ear infections] Management Discussions with other Healthcare Providers: [None] Treatment and Disposition Medication Management (Given or considered): [Initial dose of antibiotics, pain management]. See EMR for details Consideration for Hospitalization/Escalation/Deescalation of Care: Admission for observation has been considered, [however the patient is able to tolerate p.o., their symptoms are controlled, they are able to rely on oral medications, and their chief complaint/diagnosis can be managed on outpatient basis.] ?ED Course:?[No clinical deterioration. No evidence of trauma.] ?Shared decision making:?[Patient is hemodynamically stable for discharge home with follow with their primary care provider. [ ] Specific and cautious return precautions provided and discussed with full understanding. Any incidental findings were also discussed and follow up recommendations given. [] All questions answered. Patient/family were able to verbalize back return precautions. Patient/family agree to plan. Copies of imaging and laboratory studies were provided.] Code status:?FULL Please see the full Electronic Medical Record for full details of nursing documentation, medications list, other records of complete past medical history and conditions, vital signs, laboratory studies, and any radiologic study interpretations by radiologists. Portions of this note were completed using [employer]pl[employer] dictation software and as a result there may exist minor errors in spelling. I have reviewed elements of past family and social history and agree as included in note. Departure Disposition: 01 HOME / SELF CARE / HOMELESS Impression: Primary Impression: Acute otitis media Condition: Improved Discharge Instructions: Earache, Adult Additional Instructions: Return to emergency department if his symptoms do not improve after three days of antibiotics. Return immediately if his symptoms get worse. Referrals: NO PRIMARY CARE PROVIDER (PCP) Prescriptions Amox Tr/Potassium Clavulanate (Augmentin 875-125 Tablet) 1 Each Tablet 1 TAB PO Q12H for 10 Days, #20 TAB Prov: ASIA JESUS DO 03/14/25 Education Educated: Patient Educated regarding: diagnosis, treatment, prognosis, need for follow up Signature Scribe Signature: No scribe Attestation: This note accurately reflects clinical decisions, work performed by myself, DO ANN MARIE Caceres NICHOLAS M DO Mar 14, 2025 01:04
[2025-03-14] MEDS: ibuprofen tablet 400 MG TABLET PO ONE (01:22)
[2025-03-14] MEDS: amox tr/potassium clavulanate 875/125mg TAB PO ONE (01:22)
== END 2025-03-14 01:36 | disposition home or self-care (01) ==
LOC: ER 23:49
DX: H66.92 Otitis media, unspecified, left ear (principal); I10 Essential (primary) hypertension; I25.10 Atherosclerotic heart disease of native coronary artery without angina pectoris; I25.2 Old myocardial infarction; F41.9 Anxiety disorder, unspecified; M19.90 Unspecified osteoarthritis, unspecified site; Z86.73 Personal history of transient ischemic attack (TIA), and cerebral infarction without residual deficits; Z88.1 Allergy status to other antibiotic agents; Z88.8 Allergy status to other drugs, medicaments and biological substances; Z90.49 Acquired absence of other specified parts of digestive tract; Z90.710 Acquired absence of both cervix and uterus
CPT/HCPCS: 99283

== ENCOUNTER 2025-06-20 11:41 | Emergency (ER) | payer MEDICARE, OTHER ==
[~2025-06-20] VITALS: Ht 154.9 cm; Wt 60.0 kg
[~2025-06-20 11:41] MED LIST changes: +AMOX-117 PO
[2025-06-20 11:43] VITALS: TEMP 98
--- NOTE | 2025-06-20 13:01 | Physician Documentation ---
History of Present Illness ~ Chief Complaint: Shoulder pain Stated Complaint: R SHOULDER PAIN Time Seen by MD: 12:28 Primary Medical Doctor: DM CHAVEZ Mode of Arrival: EMS HPI This is an 79 yr old emale who presents to the emergency department for worsening of chronic right shoulder pain. She reports that she has not yet seen her doctor about this, has not had any physical therapy. Denies injury. The pain has been insidious, getting worse over the last week. No fever, chills, nausea, vomiting, CP, dyspnea. Tetanus within 5 years?: Yes Medication Reconciliation Allergies: Coded Allergies: levofloxacin (Unverified Allergy, Severe, 03/14/25) patient states seizure & cardiac arrest Scheduled Acetaminophen (Tylenol), 650 MG PO Q6H PRN PAIN, (Reported) Acetylcysteine (J-Ewhstq-h-Cysteine), 1 CAP PO Q12H Amlodipine Besylate (Amlodipine Besylate), 1 TAB PO DAILY Amox Tr/Potassium Clavulanate (Augmentin 875-125 Tablet), 1 TAB PO Q12H Aspirin (Ecotrin*), 1 TAB PO DAILY Atorvastatin Calcium (Atorvastatin Calcium), 1 TAB PO DAILY Cholecalciferol (Vitamin D3) (Vitamin D3), 2 TAB PO DAILY, (Reported) Gabapentin (Gabapentin), 1 CAP PO TID, (Reported) Lisinopril (Lisinopril), 1 TAB PO DAILY, (Reported) Meloxicam* (Meloxicam*), 1 TAB PO DAILY Metoprolol Tartrate (Metoprolol Tartrate), 50 MG PO BID Omeprazole (Prilosec), 1 CAP PO DAILY Pantoprazole Sodium (Pantoprazole Sodium), 1 TAB PO BID Pantoprazole Sodium (PROTONIX tablet), 1 TAB PO DAILY Sucralfate (Sucralfate), 1 TAB PO Q6H Sucralfate (Sucralfate), 1 TAB PO Q6H Sucralfate (Sucralfate), 1 TAB PO Q6H Scheduled PRN Hydroxyzine Pamoate (Hydroxyzine Pamoate), 1-2 CAPSULE PO Q6H PRN for anxiety, (Reported) Melatonin (Melatonin), 1 CAP PO HS PRN for INSOMNIA Nitroglycerin (Nitroglycerin), 0.4 MG SL DAILY PRN for chest pain ONDANSETRON ODT 4mg tablet (Ondansetron Odt), 1 TAB PO Q6H PRN PRN for nausea/vomiting ONDANSETRON ODT 4mg tablet (Ondansetron Odt), 1 TAB PO Q6H PRN PRN for nausea/vomiting Quetiapine Fumarate (Quetiapine Fumarate), 2 TAB PO HS PRN for sleep, (Reported) Past Medical History Past Medical History: CVA/TIA/Stroke, Seizures, Coronary Artery Disease, Hypertension, Myocardial Infarction, GERD, Arthritis, Chronic Back Pain, Anxiety Past Surgical History: cholecystectomy, hysterectomy, orthopedic surgeries Alcohol Use: None Drug Use: none Lives with: Family Lives In: Home Occupation: retired Review of Systems ROS As stated above in the HPI, otherwise all systems are reviewed and negative. Physical Exam Vital Signs: Temperature: 98.0, Source: Oral, Heart Rate: 81, Respiratory Rate: 20, BP: 195/84, Pulse Oximetry: 98, Weight: 60.000 Oxygen Flow Rate: 0 Physical Exam General: Alert, no apparent distress. HEENT: PERRL, EOMI, no injection, moist mucous membranes. Neck: Full range of motion. Respiratory: Lungs clear, no respiratory distress. Chest: No accessory muscle use. Cardiovascular: Regular rate and rhythm, no murmurs. Gastrointestinal: Soft, nontender, nondistended. Bowels sounds present. Extremities: Reduced/painful ROM right shoulder without hot red joint. CMS intact distally. Neurologic: Oriented x4. Psychiatric: Normal mood and affect. Skin: Normal color, warm and dry. No edema, no ecchymosis. Progress Results/Orders Results/Orders Orders - BELA AHMADI NP Shoulder, Complete (Min 2 Vws) (06/20/25 13:15) Lisinopril Tablet (Zestril Tablet) (06/20/25 14:10) Completed Orders - BELA AHMADI NP Oxycodone Immed Release Tablet (Oxy Ir T (06/20/25 13:05) Shoulder, Complete (Min 2 Vws) (06/20/25 13:15) Medications Received in ER Medications (Trade) Dose Ordered Sig/Kiara Route PRN Reason Start Time Stop Time Status Last Admin Dose Admin (OXY IR tablet) 5 mg ONCE ONCE PO 06/20/25 13:05 06/20/25 13:06 DC 06/20/25 13:37 5 MG Vital Signs 06/20/25 06/20/25 06/20/25 06/20/25 11:43 11:57 12:06 13:37 Temp 98.0 Pulse 83 81 Resp 15 15 20 16 B/P (MAP) 178/90 195/84 (121) Pulse Ox 99 98 O2 Flow Rate 0 06/20/25 13:38 Pulse 79 Resp 15 B/P (MAP) 111/91 (98) Pulse Ox 99 Medical Decision Making Additional information obtaine: old records Findings Good historian. Hx of CKD noted. Differential Dx:Considerations: Include: AC separation, Adhesive capsulitis, arthritis, Bicipital tendonitis, Calcific tendonitis, Cervical disc disease, Contusion, Dislocation, Fracture: Humerus, Fracture: Scapula, Fracture: Clavicle, Gallbladder Disease, Hematoma, Impingement syndrome, Myocardial infarction, Neurovascular Injury, Rotator cuff injury, SC dislocation, Sprain, Subacromial bursitis Departure Time of Disposition: 14:11 Disposition: HOME / SELF CARE / HOMELESS Impression: Primary Impression: Shoulder pain Qualified Codes: M25.511 - Pain in right shoulder; G89.29 - Other chronic pain Additional Impression: Accelerated hypertension Condition: Stable Discharge Instructions: Hypertension, Adult, Shoulder Pain, [id number] Additional Instructions: Continue your Suboxone for chronic pain. You may also take acetaminophen 650 mg every 6 hours. The x-ray was done today, showing no fractures or dislocations. Please see your primary care provider soon and request a referral to physical therapy. Return if worse. Very high today. Please make sure that you take your lisinopril regularly. We gave you 1 10 mg dose in the ER, resume your usual 20 mg daily tomorrow morning. Please discuss this with your doctor. Referrals: NO PRIMARY CARE PROVIDER (PCP) Education Educated: Patient Educated regarding: diagnosis, treatment, prognosis, need for follow up Signature Scribe Signature: x Attestation: The note accurately reflects work and decisions made by me.Bela Torres NP 06/20/25 13:55 BELA AHMADI NP Jun 20, 2025 13:01
--- NOTE | 2025-06-20 13:28 | RADIOLOGY REPORT ---
PROCEDURE: Right shoulder radiographs. INDICATION: pain right shoulder TECHNIQUE: 2 views of the right shoulder were obtained. COMPARISON: None. FINDINGS: There is no evidence of fracture or dislocation. Glenohumeral and acromioclavicular joint space narrowing is noted. The soft tissues are unremarkable. IMPRESSION: 1. No fracture or dislocation. 2. Glenohumeral and acromioclavicular joint space narrowing.
[2025-06-20] MEDS: oxyCODONE IR 5mg (immed. release) tablet PO ONE (13:37)
[2025-06-20] MEDS ORDERED: HYDR-3964 PO (13:39)
[2025-06-20 14:19] VITALS: BP 209/99; PULSE 76; RESP 18; O2SAT 99
== END 2025-06-20 14:18 | disposition home or self-care (01) ==
LOC: ER 11:42
DX: G89.29 Other chronic pain (principal); M25.511 Pain in right shoulder; I10 Essential (primary) hypertension; I25.10 Atherosclerotic heart disease of native coronary artery without angina pectoris; I25.2 Old myocardial infarction; M19.90 Unspecified osteoarthritis, unspecified site; K21.9 Gastro-esophageal reflux disease without esophagitis; F41.9 Anxiety disorder, unspecified; Z86.73 Personal history of transient ischemic attack (TIA), and cerebral infarction without residual deficits; Z88.1 Allergy status to other antibiotic agents; Z90.710 Acquired absence of both cervix and uterus; Z90.49 Acquired absence of other specified parts of digestive tract; Z79.899 Other long term (current) drug therapy; Z79.82 Long term (current) use of aspirin
CPT/HCPCS: 73030; 99283